=== PATIENT | male | born 1945 | race Caucasian/White ===

== ENCOUNTER 2018-05-23 12:07 | Emergency (ER) | payer OTHER ==
[2018-05-23 13:24] LABS: Absolute Monocytes 0.7 K/uL (0.1-1.3); Absolute Neutrophil 9.8 K/uL (1.8-8.0); Basophils % 1.2 % (0-1.3); Eosinophils % 2.2 % (0-4.4); Hematocrit 42.7 % (39.6-49.0); Lymphocytes % 8.1 % (15.3-44.8); MPV 10.3 fL (7.6-11.3); RBC Red Blood Cell Count 4.45 M/uL (4.33-5.43)
[2018-05-23] MEDS ORDERED: NA CHLORIDE 0.9% 1,000 ML ONE (13:24)
[2018-05-23 13:45] LABS: Albumin 3.5 g/dL (3.4-5.0); Bilirubin Direct 0.1 mg/dL (0-0.2); Bilirubin Total 0.3 mg/dL (0.2-1.0); Potassium 3.6 mmol/L (3.5-5.1); Protein, Total 7.2 g/dL (6.4-8.2)
--- NOTE | 2018-05-23 15:16 | RAD REPORT ---
EXAM DESCRIPTION: CT - Abdomen Pelvis W Contrast - 05/23/2018 3:00 pm CLINICAL HISTORY: Abdominal pain COMPARISON: , CT study August 2013 TECHNIQUE: Biphasic, helical CT imaging of the abdomen and pelvis was performed following 100 ml non -ionic IV contrast. Oral contrast was given. All CT scans are performed using dose optimization technique as appropriate and may include automated exposure control or mA/KV adjustment according to patient size. FINDINGS: No suspicious findings in the lung bases. The liver, spleen, and pancreas show no suspicious findings. An 11 mm cyst in the dome of the right l obe may be fractionally larger from 2014. No gallbladder or biliary tree abnormality. Symmetric renal function is seen with no hydronephrosis or suspicious renal mass. No pyelonephritis o r acute parenchymal process. Urinary bladder is tightly contracted which limits detail. No adrenal ab normalities. No gastric dilatation or wall thickening. The massive wall thickening seen in 2013 in the stomach is no longer present. No acute small bowel finding. The appendix is normal. From cecum to proximal sigmo id colon are no acute findings seen. Mid and distal cecum is tortuous and redundant. There is circumf erential wall thickening and edema. Stranding is present in the adjacent fat. There is edema and thic kening of the rectal wall as well. The tortuous and redundant sigmoid colon extends into a large righ t inguinal hernia. The distal colon findings superior infectious/inflammatory in origin and not secon bria to obstruction. Ischemia from vascular compromise is unlikely. No free air or pneumatosis. No free fluid seen. No abscess or extravasation contrast. No hernia, ma ss or bulky lymphadenopathy. Disc and bony degenerative changes are present. Aortic aneurysm is dilated to 3.1 cm. IMPRESSION: Circumferential wall thickening and edema involving mid sigmoid colon to rectum. This is a nonspecific colitis pattern. Ischemia is unlikely. The involved sigmoid colon is tortuous and redundant extending across the midline with a loop extendi ng into a large right inguinal hernia. The large hernia and involvement of the sigmoid colon is not new. No bowel obstruction, free air or surgically emergent finding. The massive wall thickening of the stomach seen in 2013 is no longer present.
[2018-05-23] MEDS ORDERED: CIPROFLOXACIN 400mg IV 400 MG/200 ML BAG IV ONE (15:55)
[2018-05-23] MEDS ORDERED: METRONIDAZOLE 500mg IVPB 500 MG/100 ML BAG IV ONE (15:55)
--- NOTE | 2018-05-23 16:05 | ER ---
Nurse's Notes [facility] Name: Star Baig Age: 72 yrs Sex: Male : 1945 Arrival Date: 05/23/2018 Time: 12:08 Bed 15 Private MD: out of town, doctor Diagnosis: Diarrhea, unspecified;Colitis;Dehydration Presentation: 05/23 12:25 Presenting complaint: Patient states: Diffuse abdominal pain and diarrhea x 4 days. hb Transition of care: patient was not received from another setting of care. Onset of symptoms was May 20, 2018. Risk Assessment: Do you want to hurt yourself or someone else? Patient reports no desire to harm self or others. Care prior to arrival: None. 12:25 Method Of Arrival: Ambulatory hb 12:25 Acuity: SOCO 3 hb 12:31 Initial Sepsis Screen: Does the patient meet any 2 criteria? No. Patient's initial rb1 sepsis screen is negative. Historical: - Allergies: 12:28 No Known Allergies; hb - PSHx: 12:28 Hernia repair; hb - Immunization history:: Adult Immunizations up to date. - Social history:: Smoking status: Patient uses tobacco products, smokes one pack cigarettes per day. - Ebola Screening: : No symptoms or risks identified at this time. - Family history:: not pertinent. - Hospitalizations: : No recent hospitalization is reported. Screenin:31 Abuse screen: Denies threats or abuse. Nutritional screening: No deficits noted. rb1 Tuberculosis screening: No symptoms or risk factors identified. Fall Risk None identified. Assessment: 12:31 General: Appears in no apparent distress. comfortable, Behavior is calm, cooperative. rb1 Pain: Complains of pain in abdomen diffusely Pain currently is 6 out of 10 on a pain scale. Pain began x 4 days. Neuro: Level of Consciousness is awake, alert, obeys commands, Oriented to person, place, time, situation. Cardiovascular: Capillary refill < 3 seconds is brisk in bilateral fingers. Respiratory: Airway is patent Respiratory effort is even, unlabored, Respiratory pattern is regular, symmetrical. GI: Reports diarrhea, Patient currently denies bloody stool. : No signs and/or symptoms were reported regarding the genitourinary system. Derm: Skin is dry, Skin is normal, Skin temperature is warm. 13:30 Reassessment: Patient appears in no apparent distress at this time. No changes from rb1 previously documented assessment. at bedside. 14:28 Reassessment: Patient appears in no apparent distress at this time. Patient and/or rb1 family updated on plan of care and expected duration. Pain level reassessed. Patient is alert, oriented x 3, equal unlabored respirations, skin warm/dry/pink. 15:28 Reassessment: Patient appears in no apparent distress at this time. No changes from rb1 previously documented assessment. 16:25 Reassessment: Patient appears in no apparent distress at this time. Patient and/or rb1 family updated on plan of care and expected duration. Pain level reassessed. Patient is alert, oriented x 3, equal unlabored respirations, skin warm/dry/pink. Discharge pending due to antibiotics infusing. Patient states feeling better. 17:00 Reassessment: Patient appears in no apparent distress at this time. No changes from rb1 previously documented assessment. Antibiotics still infusing. Vital Signs: 12:27 BP 166 / 105; Pulse 98; Resp 18; Temp 99.7; Pulse Ox 100% on R/A; Pain 6/10; hb 13:30 BP 184 / 95; Pulse 79; Resp 17; Pulse Ox 97% ; rb1 14:30 BP 181 / 92; Pulse 82; Resp 17; Pulse Ox 99% on R/A; Pain 5/10; rb1 15:30 BP 178 / 88; Pulse 77; Resp 19; Pulse Ox 100% on R/A; rb1 16:29 BP 177 / 84; Pulse 78; Resp 18; Pulse Ox 98% on R/A; Pain 4/10; rb1 17:15 BP 166 / 79; Pulse 73; Resp 18; Pulse Ox 100% on R/A; rb1 ED Course: 12:08 Patient arrived in ED. sb2 12:09 out of town, doctor is Private Physician. sb2 12:27 Triage completed. hb 12:28 Arm band placed on. hb 12:31 Patient has correct armband on for positive identification. Placed in gown. Bed in low rb1 position. Call light in reach. Side rails up X 1. Pulse ox on. NIBP on. 12:32 Armen Boone MD is Attending Physician. rn 12:49 Lily Garza, RAF is Primary Nurse. rb1 13:15 Inserted saline lock: 20 gauge in right antecubital area, using aseptic technique. lt1 13:16 Initial lab(s) drawn, by me, sent to lab. Flu and/or RSV swab sent to lab. lt1 14:59 CT completed. Patient tolerated procedure well. Patient moved to CT via wheelchair. vr Patient moved back from CT. 15:01 CT Abd/Pelvis - W/Contrast In Process Unspecified. EDMS 16:02 Bo Cool MD is Referral Physician. rn 17:21 No provider procedures requiring assistance completed. IV discontinued, intact, rb1 bleeding controlled, No redness/swelling at site. Pressure dressing applied. Administered Medications: 13:19 Drug: NS 0.9% 1000 ml Route: IV; Rate: 1000 ml; Site: right antecubital; rb1 14:35 Follow up: IV Status: Completed infusion rb1 15:50 Drug: Cipro 400 mg Volume: 200 ml; Route: IVPB; Infused Over: 60 mins; Site: right rb1 antecubital; 16:56 Follow up: Response: No adverse reaction; IV Status: Completed infusion rb1 16:05 Drug: Flagyl 500 mg Volume: 100 ml; Route: IVPB; Rate: 200 ml/hr; Infused Over: 30 rb1 mins; Site: right antecubital; 17:21 Follow up: Response: No adverse reaction; IV Status: Completed infusion rb1 Outcome: 16:04 Discharge ordered by . rn 17:21 Patient left the ED. rb1 17:21 Discharged to home ambulatory, with significant other. rb1 17:21 Condition: stable 17:21 Discharge instructions given to patient, Instructed on discharge instructions, follow up and referral plans. medication usage, Demonstrated understanding of instructions, follow-up care, medications, Prescriptions given X 2. Signatures: Dispatcher [employer] EDPA Armen Boone MD MD rn Davis, Victoria vr Lily Garza RN RN Freya Encinas RN RN Ginny Silva2 Manju Wylie lt1 Corrections: (The following items were deleted from the chart) 19:46 17:51 Patient left the ED. rb1 rb1
--- NOTE | 2018-05-23 16:05 | EDPHYS ---
Physician Documentation [facility] Name: Star Baig Age: 72 yrs Sex: Male : 1945 Arrival Date: 05/23/2018 Time: 12:08 Bed 15 Private MD: out of town, doctor ED Physician Armen Boone HPI: 05/23 12:41 This 72 yrs old Male presents to ER via Ambulatory with complaints of rn Diarrhea. 12:41 The patient presents to the emergency department with diarrhea, abdominal pain, of the rn abdomen diffusely. 12:41 Onset: The symptoms/episode began/occurred 4 day(s) ago. Possible causes: unknown. The rn symptoms are aggravated by nothing. The symptoms are alleviated by nothing. Severity of symptoms: At their worst the symptoms were moderate in the emergency department the symptoms are unchanged. The patient has not experienced similar symptoms in the past. The patient has not recently seen a physician. Reports a few days of "rampant diarrhea", reports took clindamycin 2 weeks ago, non-bloody diarrhea, + diffuse abd pain. NO vomiting. . Historical: - Allergies: 12:28 No Known Allergies; hb - PSHx: 12:28 Hernia repair; hb - Immunization history:: Adult Immunizations up to date. - Social history:: Smoking status: Patient uses tobacco products, smokes one pack cigarettes per day. - Ebola Screening: : No symptoms or risks identified at this time. - Family history:: not pertinent. - Hospitalizations: : No recent hospitalization is reported. ROS: 12:41 Constitutional: Negative for fever, chills, and weight loss, Eyes: Negative for injury, rn pain, redness, and discharge, Cardiovascular: Negative for chest pain, palpitations, and edema, Respiratory: Negative for shortness of breath, cough, wheezing, and pleuritic chest pain, Abdomen/GI: Negative for nausea, vomiting, and constipation, MS/Extremity: Negative for injury and deformity, Skin: Negative for injury, rash, and discoloration, Neuro: Negative for headache, numbness, tingling, and seizure. Exam: 12:41 Constitutional: This is a well developed, well nourished patient who is awake, alert, rn and in no acute distress. Head/Face: Normocephalic, atraumatic. Eyes: Pupils equal round and reactive to light, extra-ocular motions intact. Lids and lashes normal. Conjunctiva and sclera are non-icteric and not injected. Cornea within normal limits. Periorbital areas with no swelling, redness, or edema. ENT: dry MM Cardiovascular: Regular rate and rhythm, No pulse deficits. Respiratory: Lungs have equal breath sounds bilaterally, clear to auscultation, No increased work of breathing, no retractions or nasal flaring. Abdomen/GI: soft, mild left sided abd tenderness, no rebound MS/ Extremity: Pulses equal, no cyanosis. Neurovascular intact. Full, normal range of motion. Equal circumference. Neuro: Awake and alert, GCS 15, oriented to person, place, time, and situation. Cranial nerves II-XII grossly intact. Motor strength 5/5 in all extremities. Sensory grossly intact. Cerebellar exam normal. Normal gait. Vital Signs: 12:27 BP 166 / 105; Pulse 98; Resp 18; Temp 99.7; Pulse Ox 100% on R/A; Pain 6/10; hb 13:30 BP 184 / 95; Pulse 79; Resp 17; Pulse Ox 97% ; rb1 14:30 BP 181 / 92; Pulse 82; Resp 17; Pulse Ox 99% on R/A; Pain 5/10; rb1 15:30 BP 178 / 88; Pulse 77; Resp 19; Pulse Ox 100% on R/A; rb1 16:29 BP 177 / 84; Pulse 78; Resp 18; Pulse Ox 98% on R/A; Pain 4/10; rb1 17:15 BP 166 / 79; Pulse 73; Resp 18; Pulse Ox 100% on R/A; rb1 MDM: 12:32 Patient medically screened. rn 16:01 Differential diagnosis: diverticulitis, viral gastroenteritis, gastroenteritis, rn colitis. Data reviewed: vital signs, nurses notes, lab test result(s), radiologic studies, and as a result, I will discharge patient. Counseling: I had a detailed discussion with the patient and/or guardian regarding: the historical points, exam findings, and any diagnostic results supporting the discharge/admit diagnosis, lab results, radiology results, the need for outpatient follow up, to return to the emergency department if symptoms worsen or persist or if there are any questions or concerns that arise at home. Response to treatment: the patient's symptoms have markedly improved after treatment, and as a result, I will discharge patient. Special discussion: I discussed with the patient/guardian in detail that at this point there is no indication for admission to the hospital. It is understood, however, that if the symptoms persist or worsen the patient needs to return immediately for re-evaluation. ED course: SPoke with patient, wants to go home, will treat as colitis, urged to f/u with GI for colonoscopy as has never had one performed. Return precautions given and understood.. 05/23 12:39 Order name: Basic Metabolic Panel rn 05/23 12:39 Order name: CBC with Diff rn 05/23 12:39 Order name: Hepatic Function rn 05/23 12:39 Order name: Lipase rn 05/23 12:39 Order name: CDIFF rn 05/23 12:39 Order name: Occult Blood rn 05/23 12:39 Order name: CT Abd/Pelvis - W/Contrast; Complete Time: 15:18 rn 05/23 12:39 Order name: Stool Culture rn 05/23 12:39 Order name: Flu; Complete Time: 14:19 rn 05/23 12:40 Order name: Basic Metabolic Panel; Complete Time: 14:19 EDPA 05/23 12:41 Order name: CBC with Automated Diff; Complete Time: 14:19 EDPA 05/23 12:41 Order name: Liver (Hepatic) Function; Complete Time: 14:19 EDPA 05/23 12:41 Order name: Lipase; Complete Time: 14:19 EDPA 05/23 12:41 Order name: Clostridium difficile DNA EDPA 05/23 12:39 Order name: IV Saline Lock; Complete Time: 13:19 rn 05/23 12:39 Order name: Labs collected and sent; Complete Time: 13:19 rn Administered Medications: 13:19 Drug: NS 0.9% 1000 ml Route: IV; Rate: 1000 ml; Site: right antecubital; rb1 14:35 Follow up: IV Status: Completed infusion rb1 15:50 Drug: Cipro 400 mg Volume: 200 ml; Route: IVPB; Infused Over: 60 mins; Site: right rb1 antecubital; 16:56 Follow up: Response: No adverse reaction; IV Status: Completed infusion rb1 16:05 Drug: Flagyl 500 mg Volume: 100 ml; Route: IVPB; Rate: 200 ml/hr; Infused Over: 30 rb1 mins; Site: right antecubital; 17:21 Follow up: Response: No adverse reaction; IV Status: Completed infusion rb1 Disposition: 05/23/18 16:04 Discharged to Home. Impression: Diarrhea, unspecified, Colitis, Dehydration. - Condition is Stable. - Discharge Instructions: Dehydration, Adult, Diarrhea, Adult, Colitis. - Prescriptions for Cipro 500 mg Oral Tablet - take 1 tablet by ORAL route every 12 hours for 10 days; 20 tablet. Flagyl 500 mg Oral Tablet - take 1 tablet by ORAL route every 8 hours for 10 days; 30 tablet. - Medication Reconciliation Form, Thank You Letter, Antibiotic Education, Prescription Opioid Use form. - Follow up: Bo Cool MD; When: As needed; Reason: Recheck today's complaints, Re-evaluation by your physician. - Problem is new. - Symptoms have improved. Signatures: Dispatcher [employer] EDMS Armen Boone MD MD rn Lily Garza RN RN rb1 Freya Moise RN RN Corrections: (The following items were deleted from the chart) 16:04 16:04 05/23/2018 16:04 Discharged to Home. Impression: Diarrhea, unspecified. Condition rn is Stable. Forms are Medication Reconciliation Form, Thank You Letter, Antibiotic Education, Prescription Opioid Use. Follow up: Bo Cool; When: As needed; Reason: Recheck today's complaints, Re-evaluation by your physician. Problem is new. Symptoms have improved. rn 17:51 16:04 05/23/2018 16:04 Discharged to Home. Impression: Diarrhea, unspecified; Colitis; rb1 Dehydration. Condition is Stable. Forms are Medication Reconciliation Form, Thank You Letter, Antibiotic Education, Prescription Opioid Use. Follow up: Bo Cool; When: As needed; Reason: Recheck today's complaints, Re-evaluation by your physician. Problem is new. Symptoms have improved. rn
[2018-05-23 18:24] VITALS: TEMP 99.7
[2018-05-23 18:26] VITALS: BP 184/95; O2SAT 97
== END 2018-05-23 17:51 | disposition home or self-care (01) ==
LOC: ER 12:07
DX: K52.9 Noninfective gastroenteritis and colitis, unspecified (principal); E86.0 Dehydration; F17.210 Nicotine dependence, cigarettes, uncomplicated
CPT/HCPCS: 36415; 74177; 80048; 80076; 83690; 85025; 87045; 87046; 87493; 87804 ×2; 96361; 96365; 96368; 99284; J0744; J7030; Q9967

== ENCOUNTER 2019-03-11 20:25 | Emergency (ER) | payer OTHER ==
[2019-03-11] MEDS ORDERED: NA CHLORIDE 0.9% 1,000 ML ONE (21:22)
[2019-03-11] MEDS ORDERED: THIAMINE 200 MG/2 ML INJ ONE (21:22)
[2019-03-11 21:31] LABS: Protime INR 0.95
[2019-03-11 22:14] LABS: ALT/SGPT 20 U/L (12-78); AST/SGOT 19 U/L (15-37); Albumin 3.2 g/dL (3.4-5.0); Alkaline Phosphatase 60 U/L (45-117); BUN Blood Urea Nitrogen 18 mg/dL (7-18); Bicarbonate 24 mmol/L (21-32); Bilirubin Direct < 0.1 mg/dL (0-0.2); Bilirubin Total 0.2 mg/dL (0.2-1.0); Glucose Level 95 mg/dL (74-106); Lipase 70 U/L (73-393); Magnesium 2.1 mg/dL (1.8-2.4); NT PRO-BNP 406 pg/mL (<125); Potassium 3.7 mmol/L (3.5-5.1); Protein, Total 6.7 g/dL (6.4-8.2); Sodium Level 135 mmol/L (136-145); Troponin (Emerg Dept Use Only) < 0.02 ng/mL (0.0-0.045)
[2019-03-11 23:46] LABS: Barbiturates NEGATIVE (NEGATIVE); Benzodiazepines NEGATIVE (NEGATIVE); Cocaine NEGATIVE (NEGATIVE); METHAMPHETAM NEGATIVE (NEGATIVE); Methadone NEGATIVE (NEGATIVE); Opiates NEGATIVE (NEGATIVE); Phencyclidine NEGATIVE (NEGATIVE); THC Cannibis POSITIVE (NEGATIVE)
--- NOTE | 2019-03-11 23:57 | ER ---
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 Transition of care: patient was not received from another setting of care. Onset of symptoms was March 11, 2019. Risk Assessment: Do you want to hurt yourself or someone else? Patient reports no desire to harm self or others. Initial Sepsis Screen: Does the patient meet any 2 criteria? No. Patient's initial sepsis screen is negative. Does the patient have a suspected source of infection? No. Patient's initial sepsis screen is negative. Care prior to arrival: None. 20:30 Method Of Arrival: EMS: [facility] bb 20:30 Mechanism of Injury: Fall dock unto boat approx 3 feet. Trauma event details: Injury bb occurred in the [facility], Injury occurred: in a recreational area. Injury occurred: March 11, 2019. 20:34 Acuity: SOCO 2 lp1 Trauma Activation: Alert Physician: ED Physician; Name: Dr. Meeks; Notified At: 20:17; Arrived At: 20:17 Physician: General Surgeon; Name: N/A; Notified At: 20:17; Arrived At: Physician: Radiology; Name: Richie Suarez; Notified At: 20:17; Arrived At: 20:17 Physician: Respiratory; Name: Jaime; Notified At: 20:17; Arrived At: 20:17 Physician: Lab; Name: N/A; Notified At: 20:17; Arrived At: Historical: - Allergies: 20:41 No Known Allergies; bb - Home Meds: 20:41 inhaler [Active]; bb - PMHx: 20:41 COPD; bb - PSHx: 20:41 Hernia repair; bb - Immunization history:: Adult Immunizations unknown. - Social history:: Smoking status: Patient uses tobacco products, smokes two packs cigarettes per day. Patient uses alcohol, on a daily basis. Patient/guardian denies using IV drugs. - Immunization history: Last tetanus immunization: unknown. - Family history:: not pertinent. - Ebola Screening: : No symptoms or risks identified at this time. Screenin:18 Abuse screen: Denies threats or abuse. Denies injuries from another. Nutritional lp1 screening: No deficits noted. Tuberculosis screening: No symptoms or risk factors identified. Fall Risk Total Salgado Fall Scale indicates High Risk Score (45 or more points). Fall prevention measures have been instituted. Side Rails Up X 2 Family Present and informed to notify staff if the need to leave the bedside As available patient and family educated on Fall Prevention Program and Strategies. Primary Survey: 20:30 NO uncontrolled hemorrhage observed. A: The patient is alert. Airway: patent, No lp1 supplemental oxygen in use on arrival. Breathing/Chest: Respiratory pattern: regular, Respiratory effort: spontaneous, unlabored, Breath sounds: clear, bilaterally. Chest inspection: symmetrical rise and fall of the chest. Circulation: Skin color: pink, Skin temperature: warm, dry. Disability Alert. Exposure/Environment: All clothing and personal items were removed. Obvious injury(ies) are noted at this time: Laceration to back of head. 21:30 Reassessment Airway Airway Patent Breathing/Chest Respiratory pattern Regular lp1 Respiratory effort Spontaneous Unlabored. Secondary Survey: 21:00 HEENT: Head Other Laceration to back of head, not actively bleeding. Gastrointestinal: lp1 Abdomen is soft. : No deficits noted. Musculoskeletal: Range of motion: intact in all extremities. Assessment: 20:30 Reassessment: C-collar placed on patient. General: Appears in no apparent distress. lp1 Behavior is calm, cooperative, Smells of alcohol. Pain: Denies pain. Neuro: Level of Consciousness is awake, alert, obeys commands, Oriented to person, place, situation. Cardiovascular: Patient's skin is warm and dry. Respiratory: Airway is patent Respiratory effort is even, unlabored, Breath sounds are clear bilaterally. GI: Abdomen is non-distended. : No signs and/or symptoms were reported regarding the genitourinary system. EENT: No signs and/or symptoms were reported regarding the EENT system. Derm: Wound noted Other: Laceration to back of head. Musculoskeletal: Circulation, motion, and sensation intact. Range of motion: intact in all extremities. 21:40 Reassessment: Patient appears in no apparent distress at this time. Patient and/or lp1 family updated on plan of care and expected duration. Pain level reassessed. Patient resting, eyes closed respirations unlabored. 23:18 Reassessment: Patient appears in no apparent distress at this time. Patient and/or lp1 family updated on plan of care and expected duration. Pain level reassessed. Patient resting, eyes closed, respirations unlabored; C-collar removed at this time per Provider. 23:30 Reassessment: Patient changed out of wet jeans into new gown, more blankets given for lp1 comfort. 03/12 00:37 Reassessment: Patient appears in no apparent distress at this time. Reassessment: lp1 Patient assisted to wheelchair for discharge home with . Neuro: Level of Consciousness is awake, alert, obeys commands, Oriented to person, place, situation. Vital Signs: 03/11 20:32 BP 168 / 93; Pulse 82; Resp 19; Temp 97.6; Pulse Ox 95% on R/A; Weight 95.25 kg (R); lp1 Height 5 ft. 7 in. (170.18 cm); Pain 0/10; 21:00 BP 174 / 89; Pulse 83; Resp 20; Pulse Ox 94% on 2 lpm NC; lp1 22:30 BP 120 / 76; Pulse 86; Resp 17; Pulse Ox 96% on 2 lpm NC; lp1 23:30 BP 150 / 67; Pulse 82; Resp 20; Pulse Ox 97% on R/A; lp1 03/12 00:15 BP 180 / 83; Pulse 90; Resp 20; Pulse Ox 93% on R/A; lp1 03/11 20:32 Body Mass Index 32.89 (95.25 kg, 170.18 cm) lp1 Bautista Coma Score: 03/11 20:32 Eye Response: spontaneous(4). Verbal Response: oriented(5). Motor Response: obeys lp1 commands(6). Total: 15. Trauma Score (Adult): 20:32 Eye Response: spontaneous(1); Verbal Response: oriented(1); Motor Response: obeys lp1 commands(2); Systolic BP: > 89 mm Hg(4); Respiratory Rate: 10 to 29 per min(4); Bautista Score: 15; Trauma Score: 12 ED Course: 20:28 Patient arrived in ED. ds1 20:29 Yfn Meeks MD is Attending Physician. rosy 20:29 Camryn Rouse RN is Primary Nurse. lp1 20:32 Maintain EMS IV. Dressing intact. Good blood return noted. Site clean \T\ dry. Gauge \T\ lp 1 site: 18g to L AC. IV. 20:32 Patient maintains SpO2 saturation greater than 95% on room air. lp1 20:32 Patient has correct armband on for positive identification. Placed in gown. Bed in low lp1 position. Side rails up X2. marine geologist on. Pulse ox on. NIBP on. 20:34 Triage completed. lp1 20:34 Arm band placed on. lp1 20:35 Thermoregulation: warm blanket given to patient. lp1 20:39 Radiology exam delayed due to lab results not completed at this time. (BUN/Creatinine). vm2 21:46 Radiology exam delayed due to lab results not completed at this time. (BUN/Creatinine). vm2 22:30 Wound care: to laceration located on left parietal area was cleaned with Betadine, lp1 irrigated with normal saline. 23:57 Trevin Valdes MD is Referral Physician. [facility] 03/12 00:06 Assist provider with laceration repair on left parietal area that was 2.5 cm. or less lp1 using ileana. Set up tray. Performed by Yfn Meeks MD Patient tolerated well. 00:35 IV discontinued, No redness/swelling at site. Pressure dressing applied. lp1 04:30 CT Traumagram (Head C Spine CAP W Con) In Process Unspecified. EDMS Administered Medications: 03/11 21:38 Drug: NS 0.9% 1000 ml Route: IV; Rate: 1 bolus; Site: left antecubital; lp1 03/12 00:00 Follow up: IV Status: Completed infusion; IV Intake: 1000ml lp1 03/11 21:38 Drug: Thiamine 100 mg Route: IV; Rate: per protocol; Site: left antecubital; lp1 22:00 Follow up: IV Status: Completed infusion lp1 03/12 00:00 Not Given (Patient for discharge ): NS 0.9% 1000 ml IV at 125 ml/hr continuous lp1 Intake: 00:00 IV: 1000ml; Total: 1000ml. lp1 Output: 03/11 23:00 Urine: 350ml (Voided); Total: 350ml. lp1 Outcome: 23:56 Discharge ordered by MD. gallegos 03/12 00:37 Discharged to home via wheelchair, with significant other. 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 Demonstrated understanding of instructions, follow-up care. 00:38 Patient's length of stay in the Emergency Department was greater than 2 hours. waiting lp1 for imaging results Patient's length of stay extended due to 00:38 Patient left the ED. lp1 Signatures: Dispatcher [employer] EDMS Yfn Meeks MD MD cha Sanford, Demi ds1 Daphne Gordon, RN RN Camryn Krishnan RN RN 1 Marilu Beck [facility] Corrections: (The following items were deleted from the chart) 03/11 20:34 20:32 BP 168 / 93; Pulse 82bpm; Resp 19bpm; Pulse Ox 95% RA; lp1 lp1 20:34 20:32 BP 168 / 93; Pulse 82bpm; Resp 19bpm; Pulse Ox 95% RA; Temp 97.6F; 95.25 kg; lp1 Height 5 ft. 7 in.; BMI: 32.8; Pain 0/10; lp1
--- NOTE | 2019-03-11 23:58 | EDPHYS ---
Physician Documentation [facility] Name: Star Baig Age: 73 yrs Sex: Male : 1945 Arrival Date: 03/11/2019 Time: 20:28 Bed 3 Private MD: ED Physician Yfn Meeks HPI: 03/11 20:33 This 73 yrs old Male presents to ER via Unassigned with complaints of Fall rosy Injury. 20:33 Details of fall: The patient fell from a height, down approximately 3 stairs. Onset: rosy The symptoms/episode began/occurred just prior to arrival. Associated injuries: The patient sustained injury to the head. Severity of symptoms: At their worst the symptoms were mild, in the emergency department the symptoms are unchanged. The patient has not experienced similar symptoms in the past. Historical: - Allergies: 20:41 No Known Allergies; bb - Home Meds: 20:41 inhaler [Active]; bb - PMHx: 20:41 COPD; bb - PSHx: 20:41 Hernia repair; bb - Immunization history:: Adult Immunizations unknown. - Social history:: Smoking status: Patient uses tobacco products, smokes two packs cigarettes per day. Patient uses alcohol, on a daily basis. Patient/guardian denies using IV drugs. - Immunization history: Last tetanus immunization: unknown. - Family history:: not pertinent. - Ebola Screening: : No symptoms or risks identified at this time. ROS: 20:33 Constitutional: Negative for fever, chills, and weight loss, Eyes: Negative for injury, rosy pain, redness, and discharge, ENT: Negative for injury, pain, and discharge, Neck: Negative for injury, pain, and swelling, Cardiovascular: Negative for chest pain, palpitations, and edema, Respiratory: Negative for shortness of breath, cough, wheezing, and pleuritic chest pain, Abdomen/GI: Negative for abdominal pain, nausea, vomiting, diarrhea, and constipation, Back: Negative for injury and pain, : Negative for injury, bleeding, discharge, and swelling, MS/Extremity: Negative for injury and deformity, Skin: Negative for injury, rash, and discoloration, Neuro: Negative for headache, weakness, numbness, tingling, and seizure, Psych: Negative for depression, anxiety, suicide ideation, homicidal ideation, and hallucinations, Allergy/Immunology: Negative for hives, rash, and allergies, Endocrine: Negative for neck swelling, polydipsia, polyuria, polyphagia, and marked weight changes, Hematologic/Lymphatic: Negative for swollen nodes, abnormal bleeding, and unusual bruising. Exam: 20:33 Constitutional: This is a well developed, well nourished patient who is awake, alert, rosy and in no acute distress. Head/Face: Normocephalic, atraumatic. Eyes: Pupils equal round and reactive to light, extra-ocular motions intact. Lids and lashes normal. Conjunctiva and sclera are non-icteric and not injected. Cornea within normal limits. Periorbital areas with no swelling, redness, or edema. ENT: Nares patent. No nasal discharge, no septal abnormalities noted. Tympanic membranes are normal and external auditory canals are clear. Oropharynx with no redness, swelling, or masses, exudates, or evidence of obstruction, uvula midline. Mucous membranes moist. Neck: Trachea midline, no thyromegaly or masses palpated, and no cervical lymphadenopathy. Supple, full range of motion without nuchal rigidity, or vertebral point tenderness. No Meningismus. Chest/axilla: Normal chest wall appearance and motion. Nontender with no deformity. No lesions are appreciated. Cardiovascular: Regular rate and rhythm with a normal S1 and S2. No gallops, murmurs, or rubs. Normal PMI, no JVD. No pulse deficits. Respiratory: Lungs have equal breath sounds bilaterally, clear to auscultation and percussion. No rales, rhonchi or wheezes noted. No increased work of breathing, no retractions or nasal flaring. Abdomen/GI: Soft, non-tender, with normal bowel sounds. No distension or tympany. No guarding or rebound. No evidence of tenderness throughout. Back: No spinal tenderness. No costovertebral tenderness. Full range of motion. Male : Normal genitalia with no discharge or lesions. MS/ Extremity: Pulses equal, no cyanosis. Neurovascular intact. Full, normal range of motion. Neuro: Awake and alert, GCS 15, oriented to person, place, time, and situation. Cranial nerves II-XII grossly intact. Motor strength 5/5 in all extremities. Sensory grossly intact. Cerebellar exam normal. Normal gait. Psych: Awake, alert, with orientation to person, place and time. Behavior, mood, and affect are within normal limits. 20:33 Skin: injury, laceration(s), the wound is approximately 2.5 cm(s), with a depth of .25 cm(s), of the scalp. Vital Signs: 20:32 BP 168 / 93; Pulse 82; Resp 19; Temp 97.6; Pulse Ox 95% on R/A; Weight 95.25 kg (R); lp1 Height 5 ft. 7 in. (170.18 cm); Pain 0/10; 21:00 BP 174 / 89; Pulse 83; Resp 20; Pulse Ox 94% on 2 lpm NC; lp1 22:30 BP 120 / 76; Pulse 86; Resp 17; Pulse Ox 96% on 2 lpm NC; lp1 23:30 BP 150 / 67; Pulse 82; Resp 20; Pulse Ox 97% on R/A; lp1 03/12 00:15 BP 180 / 83; Pulse 90; Resp 20; Pulse Ox 93% on R/A; lp1 03/11 20:32 Body Mass Index 32.89 (95.25 kg, 170.18 cm) lp1 [place] Coma Score: 03/11 20:32 Eye Response: spontaneous(4). Verbal Response: oriented(5). Motor Response: obeys lp1 commands(6). Total: 15. Trauma Score (Adult): 20:32 Eye Response: spontaneous(1); Verbal Response: oriented(1); Motor Response: obeys lp1 commands(2); Systolic BP: > 89 mm Hg(4); Respiratory Rate: 10 to 29 per min(4); Bautista Score: 15; Trauma Score: 12 Laceration: 23:58 Wound Repair of 2.5cm ( 1.0in ) subcutaneous laceration to scalp. Irregularly shaped.. rosy Distal neuro/vascular/tendon intact. Anesthesia: none with 0 mls of none. Wound prep: Simple cleansing by me. Skin closed with 2 2 bishnu Bishnu using staple gun. Dressed with Neosporin. Patient tolerated well. MDM: 20:29 Patient medically screened. [facility] 20:37 Data reviewed: vital signs, nurses notes, lab test result(s), EKG, radiologic studies, [facility] CT scan. 03/11 20:32 Order name: Basic Metabolic Panel [facility] 03/11 20:32 Order name: CBC with Diff [facility] 03/11 20:32 Order name: LFT's [facility] 03/11 20:32 Order name: Magnesium [facility] 03/11 20:32 Order name: NT PRO-BNP [facility] 03/11 20:32 Order name: PT-INR [facility] 03/11 20:32 Order name: Troponin (emerg Dept Use Only) [facility] 03/11 20:32 Order name: Lipase [facility] 03/11 20:32 Order name: Acetaminophen [facility] 03/11 20:33 Order name: ETOH Level [facility] 03/11 20:33 Order name: Ptt, Activated [facility] 03/11 20:33 Order name: Salicylate [facility] 03/11 20:33 Order name: Urine Drug Screen [facility] 03/11 20:33 Order name: Type And Screen [facility] 03/11 21:36 Order name: Protime (+INR); Complete Time: 22:24 EDMT 03/11 21:37 Order name: Salicylates Level; Complete Time: 22:24 EDMS 03/11 21:49 Order name: PTT, Activated Partial Thromb; Complete Time: 22:24 EDMT 03/11 21:55 Order name: Alcohol Serum/Plasma; Complete Time: 22:24 EDMS 03/11 22:16 Order name: Basic Metabolic Panel; Complete Time: 22:24 EDMS 03/11 22:16 Order name: Liver (Hepatic) Function; Complete Time: 22:24 EDMS 03/11 22:16 Order name: Troponin (Emerg Dept Use Only); Complete Time: 22:24 EDMT 03/11 22:16 Order name: NT PRO-BNP; Complete Time: 22:24 EDMS 03/11 22:16 Order name: Acetaminophen Level; Complete Time: 22:24 EDMS 03/11 22:16 Order name: Magnesium; Complete Time: 22:24 EDMS 03/11 22:16 Order name: Lipase; Complete Time: 22:24 EDMS 03/11 22:22 Order name: Type and Screen; Complete Time: 22:24 EDMS 03/11 22:34 Order name: CBC with Diff 03/11 23:19 Order name: Urine Dipstick--Ancillary (enter results) ar5 03/11 23:46 Order name: Urine Drug Screen; Complete Time: 23:48 EDMS 03/12 00:12 Order name: CBC with Automated Diff [facility] 03/11 20:32 Order name: EKG; Complete Time: 20:34 [facility] 03/11 20:32 Order name: Cardiac monitoring; Complete Time: 21:38 [facility] 03/11 20:32 Order name: EKG - Nurse/Tech; Complete Time: 21:38 [facility] 03/11 20:32 Order name: IV Saline Lock; Complete Time: 21:38 [facility] 03/11 20:32 Order name: Labs collected and sent; Complete Time: 21:38 [facility] 03/11 20:32 Order name: O2 Per Protocol; Complete Time: 21:38 [facility] 03/11 20:32 Order name: O2 Sat Monitoring; Complete Time: 21:38 [facility] 03/11 20:33 Order name: Urine Dipstick-Ancillary (obtain specimen); Complete Time: 23:17 [facility] 03/11 20:33 Order name: CT Traumagram (Head C Spine CAP W Con) [facility] Administered Medications: 21:38 Drug: NS 0.9% 1000 ml Route: IV; Rate: 1 bolus; Site: left antecubital; lp1 03/12 00:00 Follow up: IV Status: Completed infusion; IV Intake: 1000ml lp1 03/11 21:38 Drug: Thiamine 100 mg Route: IV; Rate: per protocol; Site: left antecubital; lp1 22:00 Follow up: IV Status: Completed infusion lp1 03/12 00:00 Not Given (Patient for discharge ): NS 0.9% 1000 ml IV at 125 ml/hr continuous lp1 Disposition: 03/11/19 23:56 Discharged to Home. Impression: Fall due to bumping against object, Laceration without foreign body of other part of head, Alcohol abuse with intoxication, Tobacco abuse counseling - lung mass 1.5x1.5cm right upper lung mass, Obesity, unspecified, Aneurysm of aorta in diseases classified elsewhere. - Condition is Stable. - Discharge Instructions: Abdominal Aortic Aneurysm, Alcohol Intoxication, Head Injury, Adult, Obesity, Adult, Steps to Quit Smoking, Smoking Hazards, Alcohol Intoxication, Ftyw-tx-Tyzc, Alcohol Abuse and Nutrition, Facial Laceration, Qyme-sj-Hloy, Steps to Quit Smoking, Dmty-kq-Ajac, Head Injury, Adult, Owqt-jr-Oteb. - Medication Reconciliation Form, Thank You Letter, Antibiotic Education, Prescription Opioid Use form. - Follow up: Private Physician; When: 2 - 3 days; Reason: Recheck today's complaints, Continuance of care, Re-evaluation by your physician. Follow up: Trevin Valdes MD; When: 2 - 3 days; Reason: Recheck today's complaints, Re-evaluation by your physician. - Problem is new. - Symptoms have improved. Signatures: Dispatcher [employer] EDMS Yfn Meeks MD MD cha Ballard, Brenda, RN RN bb Camryn Rouse RN RN lp1 Corrections: (The following items were deleted from the chart) 03/11 23:57 23:56 03/11/2019 23:56 Discharged to Home. Impression: Fall due to bumping against rosy object; Laceration without foreign body of other part of head; Alcohol abuse with intoxication; Tobacco abuse counseling - lung mass 1.5x1.5cm right upper lung mass; Obesity, unspecified. Condition is Stable. Discharge Instructions: Alcohol Intoxication, Head Injury, Adult, Obesity, Adult, Steps to Quit Smoking, Smoking Hazards, Alcohol Intoxication, Mehr-wz-Pull, Alcohol Abuse and Nutrition, Facial Laceration, Ofds-vo-Ioti, Steps to Quit Smoking, Hgln-cl-Lsbl, Head Injury, Adult, Afgi-uz-Hnys. Forms are Medication Reconciliation Form, Thank You Letter, Antibiotic Education, Prescription Opioid Use. Follow up: Private Physician; When: 2 - 3 days; Reason: Recheck today's complaints, Continuance of care, Re-evaluation by your physician. Problem is new. Symptoms have improved. [facility] 23:58 23:57 03/11/2019 23:56 Discharged to Home. Impression: Fall due to bumping against rosy object; Laceration without foreign body of other part of head; Alcohol abuse with intoxication; Tobacco abuse counseling - lung mass 1.5x1.5cm right upper lung mass; Obesity, unspecified. Condition is Stable. Discharge Instructions: Alcohol Intoxication, Head Injury, Adult, Obesity, Adult, Steps to Quit Smoking, Smoking Hazards, Alcohol Intoxication, Jzqz-wd-Ekrf, Alcohol Abuse and Nutrition, Facial Laceration, Alsy-lq-Vuhy, Steps to Quit Smoking, Xzyf-eq-Aayv, Head Injury, Adult, Xzmh-oh-Knxk. Forms are Medication Reconciliation Form, Thank You Letter, Antibiotic Education, Prescription Opioid Use. Follow up: Private Physician; When: 2 - 3 days; Reason: Recheck today's complaints, Continuance of care, Re-evaluation by your physician. Follow up: Trevin Valdes; When: 2 - 3 days; Reason: Recheck today's complaints, Re-evaluation by your physician. Problem is new. Symptoms have improved. rosy 03/12 00:38 03/11 23:58 03/11/2019 23:56 Discharged to Home. Impression: Fall due to bumping lp1 against object; Laceration without foreign body of other part of head; Alcohol abuse with intoxication; Tobacco abuse counseling - lung mass 1.5x1.5cm right upper lung mass; Obesity, unspecified; Aneurysm of aorta in diseases classified elsewhere. Condition is Stable. Discharge Instructions: Alcohol Intoxication, Head Injury, Adult, Obesity, Adult, Steps to Quit Smoking, Smoking Hazards, Alcohol Intoxication, Lwck-ew-Hyef, Alcohol Abuse and Nutrition, Facial Laceration, Jkda-pa-Wvhg, Steps to Quit Smoking, Rjgb-it-Vwki, Head Injury, Adult, Pwwy-hn-Vyod, Abdominal Aortic Aneurysm. Forms are Medication Reconciliation Form, Thank You Letter, Antibiotic Education, Prescription Opioid Use. Follow up: Private Physician; When: 2 - 3 days; Reason: Recheck today's complaints, Continuance of care, Re-evaluation by your physician. Follow up: Trevin Valdes; When: 2 - 3 days; Reason: Recheck today's complaints, Re-evaluation by your physician. Problem is new. Symptoms have improved. rosy
[2019-03-12 00:05] LABS: Absolute Lymphocytes (CBC) 0.6 K/uL (0.7-4.9); Basophils % 1.4 % (0-1.3); Hematocrit 36.8 % (39.6-49.0); Lymphocytes % 8.1 % (15.3-44.8); MPV 10.3 fL (7.6-11.3); RBC Red Blood Cell Count 3.81 M/uL (4.33-5.43)
[2019-03-12 02:41] LABS: Urine Blood TRACE (NEG); Urine Glucose NEGATIVE (NEG); Urine Protein 1+ (NEG)
[2019-03-12 02:58] LABS: Blood Morphology Comment NOT SEEN (NOT SEEN); Platelet Estimate ADEQ
[2019-03-12 06:35] VITALS: TEMP 97.6
[2019-03-12 06:41] VITALS: BP 180/83; O2SAT 93
--- NOTE | 2019-03-12 08:22 | EKG ---
Test Date: 2019-03-11 Test Time: 21:30:30 Supervisor Sewer System: JUNE MEASUREMENT RESULTS: Intervals: Rate: 85 NC: 216 QRSD: 140 QT: 422 QTc: 502 [place]: P: 66 NC: 216 QRS: -55 T: 66 INTERPRETIVE STATEMENTS: Sinus rhythm with 1st degree AV block Left axis deviation Right bundle branch block Abnormal ECG Compared to ECG 06/12/2013 21:10:05 First degree AV block now present Left-axis deviation now present Right bundle-branch block now present Incomplete right bundle-branch block no longer present Electronically Signed On 03-12-19 08:21:28 PUBLIC RELATIONS ASSOCIATE by Jesus Eagle
--- NOTE | 2019-03-15 14:34 | RAD REPORT ---
EXAM DESCRIPTION: CT - Head C Spine Cap W Con - 03/12/2019 4:49 am ADDENDUM #1 CLINICAL HISTORY: Pain. Trauma. TECHNIQUE: CT scan of the chest, abdomen and pelvis was performed with intravenous contrast. 5 mm ax ial images were obtained along with coronal and sagittal reformatted images. DOSE OPTIMIZATION: This facility uses dose optimization techniques as appropriate to perform exams, including at least one of the following techniques: 1. Automated exposure control. 2. Adjustment of the mA and/or kV according to patient size (this includes techniques or standardized protocols for targeted exams where dose is matched to the indication/reason for exam, i.e. extremiti es or head). 3. Use of iterative reconstructive technique. INTRAVENOUS CONTRAST: Not documented. COMPARISON: None. FINDINGS: Lung Martinez: There is a lobulated mass in the right upper lobe measuring 1.5 x 1.5 cm. There is moderately severe emphysematous lung disease in the apices bilaterally. There is no pneumothorax. Mediastinal Structures: There is no evidence of aortic aneurysm or dissection. There is mild atherosclerotic disease about the thoracic aorta. There is no significant pericardial effusion. There is no adenopathy. Pleural Space: Normal. Axillae: Normal. Chest Wall: Normal. Liver: There is a cyst in the right hepatic lobe measuring 1.4 x 1.4 cm. Spleen: Normal. Pancreas: Normal. Gallbladder: Normal. Adrenal Glands: Normal. Kidneys: Normal. Retroperitoneal Structures: There is mild fusiform aneurysmal dilatation of the mid abdominal aorta measuring 3.1 x 2.9 cm rbady l AP and transverse dimensions. Bowel Survey: There is increased of the mid sigmoid colon within a large right inguinal hernia. There is no evidence of bowel compromise. The appendix is unremarkable. The distal ileum is unremarkable. Prostate Gland: Normal in size. Urinary Bladder: Normal. Peritoneal Cavity: Normal. Mesenteric Structures: Normal. Abdominal Wall: No hernia. Bony Structures: No suspicious lesions. No fractures are identified. IMPRESSION: 1. No acute posttraumatic changes. 2. Lobulated pulmonary mass in the right upper lobe. Etiology uncertain. A follow-up chest CT in 3 months, May 2019, recommended to assess for stability. 3. 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 Large right inguinal hernia which contains a portion of the sigmoid colon. 5. Emphysematous lung disease. Electronically signed by: Cody Adkins MD 03/11/2019 11:31 PM [facility] [employer] End of Addendum EXAM DESCRIPTION: Head C Spine Cap W Con CLINICAL HISTORY: 73 years Male, PAIN COMPARISON: None. TECHNIQUE: 1. Head CT: 5 mm noncontrast axial images were obtained along with 3 mm coronal and sagit arlene reformatted images. 2. Cervical spine CT: 2 mm noncontrast axial images were obtained along with 2 mm coronal and sagitta l reformatted images. This exam was performed according to our departmental dose-optimization program, which includes autom ated exposure control, adjustment of the mA and/or kV according to patient size and/or use of iterati ve reconstruction technique. FINDINGS: HEAD CT: No acute abnormal extracerebral fluid collections are demonstrated. There is mild prominence of the cortical sulci and ventricles and cisterns consistent with global par enchymal volume loss. There is evidence of a septum pellucidum et vergae. There is moderately severe chronic bilateral periventricular microangiopathic white matter changes. There is atherosclerosis of the internal carotid arteries bilaterally. There are no areas of altered attenuation identified to suggest acute hemorrhage, infarction, or mass lesion. The paranasal sinuses and the mastoid air cells are clear. CT CERVICAL SPINE: There is no evidence of fracture or subluxation. There is mild diffuse spondylosis throughout the cervical spine with endplate lipping and syndesmophy te formation demonstrated. The facet joints demonstrate severe facet arthropathy on the left at C2-C3, moderate severe facet art hropathy on the right at C2-C3, mild facet arthropathy bilaterally at C3 or C4, and mild facet arthro henry on the left at C4-C5. There is atherosclerosis about the carotid arteries bilaterally. IMPRESSION: 1. Head CT: No acute intracranial abnormalities. 2. CT cervical spine: No fracture or subluxation. Mild diffuse spondylosis. Facet arthropathy as desc ribed above. Electronically signed by: Cody Adkins MD 03/11/2019 10:51 PM [facility] Due to temporary technical issues with the PACS/Fluency reporting system, reports are being signed by the in house radiologist as a courtesy to ensure prompt reporting. The interpreting radiologist is f ully responsible for the content of the report.
== END 2019-03-12 00:38 | disposition home or self-care (01) ==
LOC: ER 20:25
PROC: 0JQ00ZZ Repair Scalp Subcutaneous Tissue and Fascia, Open Approach (ICD-10-PCS; principal; 2019-03-12)
DX: S01.01XA Laceration without foreign body of scalp, initial encounter (principal); F10.129 Alcohol abuse with intoxication, unspecified; R91.8 Other nonspecific abnormal finding of lung field; E66.9 Obesity, unspecified; I71.9 Aortic aneurysm of unspecified site, without rupture; Z71.6 Tobacco abuse counseling; J44.9 Chronic obstructive pulmonary disease, unspecified; W10.9XXA Fall (on) (from) unspecified stairs and steps, initial encounter; Y93.9 Activity, unspecified; Y92.9 Unspecified place or not applicable
CPT/HCPCS: 96365; 96361; 93005; 85025; 80048; 36415; 80320; 86900; 83735; 86850; 80329 ×2; 85610; 86901; 80076; 80307 ×8; 85730; 81003; 84484; 83690; 83880; 70450; 72125; 71260; 74177; 99285; 12001; Q9967; J3411; J7030

== ENCOUNTER 2023-12-07 08:04 | Observation (INO) | payer OTHER ==
[2023-12-07] MEDS: NA CHLORIDE 0.9% 1,000 ML ONE (08:46)
[2023-12-07 08:50] LABS: MPV 10.2 fL (7.6-11.3); Platelets 163 thou/uL (152-406)
[2023-12-07 08:57] LABS: PT Prothrombin Time 10.7 SECONDS (9.4-12.5); PTT, Activated Partial Thromb 29.5 SECONDS (24.3-36.9); Protime INR 0.95
[2023-12-07] MEDS: FLUMAZENIL 0.1 MG/ML (5 mL VIAL) IV ONE (09:14)
[2023-12-07] MEDS: NALOXONE HCL 2 MG/2 ML VIAL ONE (09:15)
[2023-12-07] MEDS: ONDANSETRON 4 MG/2 ML VIAL ONE (09:15)
[2023-12-07] MEDS: FENTANYL CITR 100 MCG/2 ML ONE (09:16)
[2023-12-07] MEDS: MIDAZOLAM HCL 2 MG/2 ML INJ ONE (09:17)
--- NOTE | 2023-12-07 11:57 | RAD REPORT ---
EXAM DESCRIPTION: Jake Single View12/07/2023 11:11 am CLINICAL HISTORY: s/p right lung bx COMPARISON: CHEST PA AND LAT 2 VIEW dated 04/11/2013 TECHNIQUE: Portable AP view of the chest. FINDINGS: Right mid lung known 2.7 cm mass. Questionable trace peripheral pneumothorax near the righ t apex, with at most 3 mm pleural separation. Soft tissue gas in the right axilla. The left lung is c lear. The cardiomediastinal contours are unremarkable. IMPRESSION: Questionable trace peripheral right pneumothorax near the apex.
--- NOTE | 2023-12-07 12:37 | RAD REPORT ---
EXAM DESCRIPTION: CT - Lung Biopsy Perc w/CT - 12/07/2023 10:48 am CLINICAL HISTORY: right lung bx COMPARISON: Outside PET-CT of 2023. Chest Single View dated 12/07/2023; Head C Spine Cap W Con dated 03/11/2019 FINDINGS: Preoperative diagnosis: Right lung mass Post operative diagnosis: Same Conscious Sedation: A total of 75 microgram fentanyl and 1 milligram Versed were administered intrave nously. Total sedation time: 23 minutes. Patient was continuously monitored by nursing staff. Contrast used: NONE Estimated blood loss: less than 5 mL Specimens: As below Informed consent was obtained following discussion of the risks and benefits with the patient. Time-o ut procedure was performed. The patient was placed in supine position on the table and the right uppe r anterior chest area was prepped and draped in the usual sterile fashion. 1% lidocaine was infiltrat ed into the subcutaneous tissues for local anesthesia. Under computed tomographic guidance, a 19 gau ge introducer was advanced into the lesion. Subsequently, a 20 gauge, 20 mm throw core biopsy gun was advanced into the lesion and 4 soft tissue cores were obtained. Postprocedure imaging demonstrated a small right apical and lateral pneumothorax. Samples were given to pathology for analysis. The patient tolerated the procedure without immediate complication and tra nsferred to the recovery room in stable condition. IMPRESSION: Successful CT-guided biopsy of a right upper lobe mass. At the conclusion of the procedure, a small right apical and lateral pneumothorax was observed. All CT scans are performed using dose optimization technique as appropriate and may include automated exposure control or mA/KV adjustment according to patient size.
--- NOTE | 2023-12-07 13:01 | RAD REPORT ---
EXAM DESCRIPTION: RAD - Chest Pa And Lat (2 Views) - 12/07/2023 12:46 pm CLINICAL HISTORY: R/O PNEUMOTHORAX S/P RIGH LUNG BIOPSY COMPARISON: Chest Single View dated 12/07/2023; CHEST PA AND LAT 2 VIEW dated 04/11/2013; Lung Biopsy Perc w/CT dated 12/07/2023 TECHNIQUE: PA and lateral views of the chest were obtained. FINDINGS: Pneumothorax has progressed on the right, with pleura secretion now measuring 1.9 cm. Righ t midlung mass again seen. Stable right axillary soft tissue gas. Heart size is normal and central va sculature is within normal limits. No pleural effusion. No acute bony finding noted. IMPRESSION: Worsening right pneumothorax as above. The findings were discussed with Dr. Martinez on 12/07/2023 at 12:56 hours, for need for a chest tube.
--- OUTSIDE RECORDS SUMMARY | 2023-12-07 13:53 | XMS REPORT | Clinical Summary ---
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 Name Role Phone Fortino Alvarez MD Primary Care Provider [phone] Fortino Alvarez MD Unavailable Lius Carlos POLANCO MD, William J Unavailable [phone] Efren Mueller MD Unavailable Socorro Gil Unavailable [phone] Fazal Mueller MD Unavailable Magaly Xavier NP Unavailable [phone] Yesenia Wright Unavailable [phone] Santi Lozano MD Unavailable Aime Bartlett MD Unavailable Stevie Covarrubias MD Unavailable Allergies No known active allergies Medications Medication Sig Dispensed Refills Start Date End Date Status MULTIVITAMIN ORAL Take 1 tablet by mouth daily. Active albuterol (PROAIR HFA) 90 mcg/puff inhalerIndications :Wheezing,Other emphysema Inhale 2 puffs by mouth every 6 (six) hours as needed for wheezing or shortness of breath. 18 g 3 03/04/2016 Active losartan (COZAAR) 50 mg tabletIndications: Other emphysema Take 1 tablet (50 mg) by mouth daily. 30 tablet 05/05/2016 Active Additional Information Patient not taking.Reason: not taking, Reported on 05/17/2019 tiotropium (SPIRIVA WITH HANDIHALER) 18 mcg inhalation capsuleIndications :Wheezing,Other emphysema Insert 1 capsule in handi-haler and inhale orally once daily. 30 each 05/05/2016 Active Additional Information Patient not taking.Reason: No longer taking, Reported on 06/02/2019 umeclidinium-vilan terol (ANORO ELLIPTA) 62.5-25 mcg/actuation dsdv Inhale 1 puff by mouth daily. 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 Elevated prostate specific antigen (PSA) Benign prostatic hypertrophy with outflow obstruction (aka BPH with urinary obstruction) Chronic depression Smoker (aka Current smoker) Surgical History Surgery Date Site/Laterality Comments REPAIR OF REDUCIBLE INGUINAL HERNIA Right REPAIR OF REDUCIBLE INGUINAL HERNIA Left HERNIA REPAIR 04/13/2004 - 04/12/2005 UPPER GASTROINTESTINAL ENDOSCOPY 06/11/2014 - 07/11/2014 Medical History Medical History Date Comments Chronic depression Benign prostatic hypertrophy with outflow obstru ction Elevated prostate specific antigen (PSA) Smoker 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) Chronic obstructive pulmonary disease very occaisonally Sexual dysfunction Disorder of prostate Blood transfusion, without reported diagnosis - 2014 Psoriasis Family History Medical History Relation Name Comments Multiple sclerosis Sister Relation Name Status Comments Sister Social History Tobacco Use Types Packs/Day Years Used Date Smoking Tobacco: Light Smoker Cigarettes 0.3 50 Smokeless Tobacco: Never Tobacco Cessation:Ready to Q uit: Yes Alcohol Use Standard Drinks/Week Comments Yes 0 (1 standard drink = 0.6 oz pur e alcohol) 2.0 oz daily Sex and Gender Information Value Date Recorded Sex Assigned at Not on file Gender Identity Not on file Sexual Orientation Not on file Obstetrics History Plan of Treatment Health Maintenance Due Date Last Done Comments Pneumococcal Vaccine: 65+ Years (1 of 1 - PCV) 013 COVID-19 Vaccine ( season) 2022 Influenza Vaccine 12/13/2023 Advance Directives * Full Code (Latest Code Status on File) Date Activated Date Inactivated Comments 02/29/2016 9:56 AM 02/29/2016 12:36 PM Care Teams 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 [place] [address] PCP - External Primary Care Provider Family Practice 05/17/19 Fortino Alvarez MD [address] [place] [address] [email or web address] 06/20/15 Bo Aldridge IV, MD [address] [place] [id number] [email or web address] 06/20/15 Efren Mueller MD [address] [place] [id number] [email or web address] 06/20/15 Socorro Gil PA [address] [place] [id number] [email or web address] Physician Freight Service Inspector 06/20/15 Fazal Mueller MD [address] [place] [id number] [email or web address] 06/20/15 Magaly Xavier NP [address] [place] [id number] [email or web address] Practitioner 06/20/15 Yesenia Wright PA [address] [place] [id number] [email or web address] Physician Freight Service Inspector 06/20/15 Aime Bartlett MD [address] [place] [id number] [email or web address] Physician Internal Medicine 03/04/16 Stevie Covarrubias MD [address] [place] [id number] [email or web address] [email or web address] Physician Surgical Oncology 02/26/16
--- NOTE | 2023-12-07 14:21 | P.HP ---
Certification for Inpatient Patient admitted to: Inpatient With expected LOS: <2 Midnights Practitioner: I am a practitioner with admitting privileges, knowledge of patient current condition, hospital course, and medical plan of care. Services: Services provided to patient in accordance with Admission requirements found in Title 42 Section 412.3 of the Code of Federal Regulations Patient History Date of Service: 12/07/23 Reason for admission: Right pneumothorax History of Present Illness: Star Baig is a 77 year old male with Pmhx Who came to the hospital for a lung biopsy, during the proceure it was noted he had a Right pneumothorax. Chest xray s/p biopsy showing worsening right pneumothorax requiring a chest tube Chest xray reports "Pneumothorax has progressed on the right, with pleura secretion now measuring 1.9 cm. Right midlung mass again seen. Stable right axillary soft tissue gas. Heart size is normal and central vasculature is within normal limits. No pleural effusion. No acute bony finding noted. IMPRESSION: Worsening right pneumothorax as above. Star will be admitted to hospitalist service for further treatment. Dr. Cano is primary Allergies No Known Allergies Allergy (Verified 06/12/13 23:25) Home Medications: Amlodipine [Norvasc*] 10 mg PO DAILY 12/07/23 Atorvastatin Calcium [Lipitor] 40 mg PO DAILY 12/07/23 Budesonide/Glycopyr/Formoterol [Breztri Aerosphere Inhaler] 4 puff IH DAILY 12/07/23 Tamsulosin [Flomax*] 2 cap PO DAILY 12/07/23 Varenicline Tartrate [Chantix] 2 tab PO DAILY 12/07/23 - Past Medical/Surgical History Diabetic: No -: hernia repair - Social History Alcohol use: Yes CD- Drugs: No Caffeine use: Yes Physical Examination - Vital Signs Temperature: 97.2 F Blood Pressure: 115/65 Pulse: 80 Respirations: 16 - Studies Laboratory Data (last 24 hrs) 12/07/23 12/07/23 08:39 08:39 Plt Count 163 PT 10.7 INR 0.95 APTT 29.5 Assessment and Plan - Plan Assessment and plan Acute right pneumothorax status post lung biopsy -Chest tube placed by Dr. Cano -Incentive parameter -Oxygen supplementation -Serial chest x-rays Discharge Plan: Home Plan to discharge in: 72 Hours - Advance Directives Does patient have a Living Will: No Does patient have a Durable POA for Healthcare: No
[2023-12-07] MEDS ORDERED: ONDANSETRON 4 MG/2 ML VIAL IV PRN (14:22)
[2023-12-07] MEDS ORDERED: MORPHINE 2 MG/ML SYR IV PRN (14:22)
--- NOTE | 2023-12-07 15:07 | RAD REPORT ---
EXAM DESCRIPTION: Jake Single View12/07/2023 2:48 pm CLINICAL HISTORY: Right pneumothorax COMPARISON: Chest film earlier on same date FINDINGS: Overall no significant change in size of right pneumothorax since chest film earlier same date. The pneumothorax extends from right apex to right lower hemithorax IMPRESSION: No significant change in the right pneumothorax. It is small to moderate to moderate in size. Close follow-up is recommended
[2023-12-07 16:08] VITALS: BMI 26.4
[2023-12-07] MEDS: D5 0.9 NS 1,000 ML IV SCH (16:10)
--- NOTE | 2023-12-07 17:24 | P.HP ---
Certification for Inpatient Patient admitted to: Observation With expected LOS: <2 Midnights Practitioner: I am a practitioner with admitting privileges, knowledge of patient current condition, hospital course, and medical plan of care. Services: Services provided to patient in accordance with Admission requirements found in Title 42 Section 412.3 of the Code of Federal Regulations Patient History Date of Service: 12/07/23 Reason for admission: Right pneumothorax History of Present Illness: 77-year-old gentleman with a history of COPD, tobacco use, recently noted to have a right mid lung mass underwent CT-guided biopsy of the lung mass. Postprocedure chest x-ray showed patient has right apical pneumothorax and right axillary soft tissue gas. Radiologist consulted hospitalist service and general surgery Dr. Garrett to evaluate patient for hospitalization and possible chest tube. Patient reports she is a current smoker but has cut down to about 6 cigarettes/day. He reports chronic shortness of breath. Patient was puffing during my examination. He appears stable including his oxygen via nasal cannula Patient is admitted for further management. Allergies No Known Allergies Allergy (Verified 06/12/13 23:25) Home Medications: Amlodipine [Norvasc*] 10 mg PO DAILY 12/07/23 Atorvastatin Calcium [Lipitor] 40 mg PO DAILY 12/07/23 Budesonide/Glycopyr/Formoterol [Breztri Aerosphere Inhaler] 4 puff IH DAILY 12/07/23 Tamsulosin [Flomax*] 2 cap PO DAILY 12/07/23 Varenicline Tartrate [Chantix] 2 tab PO DAILY 12/07/23 - Past Medical/Surgical History Has patient received pneumonia vaccine in the past: Yes Diabetic: No -: BPH -: HTN -: HLD -: COPD -: Stroke 2020 -: hernia repair - Family History Family History: Reviewed- Non-Contributory (Patient denies any history of cancer in the family) - Social History Smoking Status: Current every day smoker Alcohol use: Yes CD- Drugs: No Caffeine use: Yes Place of Residence: Home Review of Systems Other: Patient denied any chest pain, he denied any wheezing, he denied any cough. Except as documented, all other systems reviewed and negative. Physical Examination - Vital Signs Temperature: 96.9 F Blood Pressure: 128/69 Pulse: 91 Respirations: 23 Pulse Ox (%): 97 - Physical Exam General: Alert, In no apparent distress, Oriented x3 HEENT: Atraumatic, Mucous membr. moist/pink, EOMI, Sclerae nonicteric Neck: Supple, JVD not distended, JVD distended Respiratory: Diminished (Bilateral), Other (No rhonchi or rales) Cardiovascular: No edema, Regular rate/rhythm, Normal S1 S2 Gastrointestinal: Normal bowel sounds, Soft and benign, Non-distended, No tenderness Musculoskeletal: No swelling Integumentary: No rashes, No cyanosis Neurological: Normal strength at 5/5 x4 extr - Studies Laboratory Data (last 24 hrs) 12/07/23 12/07/23 08:39 08:39 Plt Count 163 PT 10.7 INR 0.95 APTT 29.5 Assessment and Plan - Problems (Diagnosis) (1) Pneumothorax, right Current Visit: Yes Status: Acute (2) COPD (chronic obstructive pulmonary disease) Current Visit: Yes Status: Acute (3) Lung mass Current Visit: Yes Status: Acute (4) BPH (benign prostatic hyperplasia) Current Visit: Yes Status: Acute (5) Hypertension Current Visit: Yes Status: Acute - Plan Pneumothorax Lung mass Admit patient to the ICU For close monitoring Surgery Dr. Cano consulted. As of now serial chest x-ray is showing stable small to moderate right pneumoth orax. Continue monitoring with serial chest x-ray.per Dr. Cano. COPD Patient with advanced COPD Chronically short of breath. Supplemental oxygen as needed. I suspect patient has chronic hypoxic respiratory failure. Home oxygen evaluation prior to discharge. BPH Resume home dose tamsulosin. Essential hypertension Patient is currently normotensive. Will hold antihypertensives due to increased risk of hypotension with pneumothorax. Monitor BP. DVT prophylaxis: SCD Advanced directive: Full code. - Advance Directives Does patient have a Living Will: No Does patient have a Durable POA for Healthcare: No
[2023-12-07 17:49] LABS: Absolute Basophils 0.1 K/uL (0-0.5); Absolute Eosinophils 0.1 K/uL (0-0.5); Absolute Lymphocytes (CBC) 0.7 K/uL (0.7-4.9); Absolute Monocytes 0.4 K/uL (0.1-1.3); Absolute Neutrophil 6.3 K/uL (1.8-8.0); Eosinophils % 1.8 % (0-4.4); Hematocrit 35.5 % (39.6-49.0); Hemoglobin 11.7 g/dL (13.6-17.9); Lymphocytes % 9.1 % (15.3-44.8); MCH 31.3 pg (27.0-35.0); MCHC 32.9 g/dL (32.0-36.0); MCV 95.1 fL (80-100); MPV 9.6 fL (7.6-11.3); Monocytes % 5.2 % (3.3-12.3); Neutrophils % 82.9 % (41.7-73.7); Platelets 152 thou/uL (152-406); RBC Red Blood Cell Count 3.73 M/uL (4.33-5.43); Red Cell Distribution Width 15.2 % (12.1-15.2)
[2023-12-07 17:53] LABS: PT Prothrombin Time 11.5 SECONDS (9.4-12.5); Protime INR 1.03
[2023-12-07 18:06] LABS: Albumin 3.2 g/dL (3.4-5.0); Anion Gap 6.3 mEq/L (5.0-15.0); Bilirubin Total 0.4 mg/dL (0.2-1.0); Globulin 3.2 g/dL (2.3-3.5); Magnesium 1.8 mg/dL (1.6-2.4); Potassium 4.3 mEq/L (3.5-5.1); Protein, Total 6.4 g/dL (6.4-8.2)
[2023-12-07] MEDS: ALBUTEROL 2.5 MG/3 ML NEB SOL NEB SCH (20:28)
[2023-12-07] MEDS: IPRATROPIUM BROM 0.5MG/2.5ML NEB SCH (20:29)
--- NOTE | 2023-12-07 21:42 | CON ---
Date of Consultation: 12/07/2023 Reason For Consultation: Right pneumothorax. History Of Present Illness: The patient is a 77-year-old gentleman who underwent a right lung mass biopsy by IR earlier today and he was noted to have right axillary soft tissue air present at the time of biopsy. A followup chest x-ray 2 hours later showed right-sided pneumothorax. The patient was clinically stable and was monitored for the next couple of hours and repeat x-ray showed no progression of the pneumothorax at 2:30pm. On examination, patient is awake, alert. States that initially after the procedure, he was a little short of breath, but since that time he has been stable, has not worsened and he has no difficulty breathing. He is on oxygen currently and saturating very well. He is awake and alert. He denies any sore throat, runny nose, cough, headaches, dizziness. No chest pain. Review of Systems: Otherwise, unremarkable. Past Medical History: Negative. Past Surgical History: Bilateral inguinal hernia repair. Social History: The patient does smoke a pack a day and does use alcohol daily. Physical Examination: Vital Signs: Stable. His sats are 99% on nasal cannula 3 L. He is afebrile. General: He is awake and alert. Head and Neck: No masses. Chest: Clear, but slightly diminished breath sounds on the right side. Heart: S1, S2. Abdomen: Soft. Extremities: Neurovascularly intact. Neuro: Nonfocal. Diagnostic Data: Reviewed in detail with the radiologist. Laboratory Data: Pending. Assessment: Right-sided pneumothorax following an IR procedure, stable over the last 6 hours. Recommendations: Admit the patient for observation and we will repeat chest x- ray 6 hours from the last x-ray and also 1 in the morning and should he not progress he could perhaps be discharged tomorrow. If he clinically worsens then he may need intervention and placement of chest tube. We will have a chest tube kit ready to be placed at the bedside, and he will be closely monitored in the ICU overnight. JANETH/NATALIE Voice ID: [id number] Report ID: [id number] MAZIN
[2023-12-08 06:06] LABS: Absolute Basophils 0.2 K/uL (0-0.5); Absolute Eosinophils 0.2 K/uL (0-0.5); Absolute Lymphocytes (CBC) 0.9 K/uL (0.7-4.9); Absolute Monocytes 0.5 K/uL (0.1-1.3); Absolute Neutrophil 6.3 K/uL (1.8-8.0); Basophils % 2.7 % (0-1.3); Eosinophils % 2.5 % (0-4.4); Hematocrit 35.8 % (39.6-49.0); Hemoglobin 12.1 g/dL (13.6-17.9); Lymphocytes % 11.2 % (15.3-44.8); MCH 31.9 pg (27.0-35.0); MCHC 33.9 g/dL (32.0-36.0); MCV 94.2 fL (80-100); Monocytes % 6.1 % (3.3-12.3); Neutrophils % 77.5 % (41.7-73.7); Platelets 178 thou/uL (152-406); Red Cell Distribution Width 15.2 % (12.1-15.2)
[2023-12-08 06:23] LABS: Anion Gap 5.6 mEq/L (5.0-15.0); Magnesium 1.9 mg/dL (1.6-2.4); Phosphorus 2.4 mg/dL (2.5-4.9); Potassium 3.6 mEq/L (3.5-5.1)
--- NOTE | 2023-12-08 08:05 | RAD REPORT ---
[facility]47 am CLINICAL HISTORY: R/O Pneumo COMPARISON: Chest Single View dated 12/07/2023; Chest Pa And Lat (2 Views) dated 12/07/2023; Chest Sin gle View dated 12/07/2023; CHEST PA AND LAT 2 VIEW dated 04/11/2013 TECHNIQUE: Portable AP view of the chest. FINDINGS: No effusion. No new focal airspace opacity. Stable small right apical and lateral pneumoth orax, compared to the most recent chest radiograph, with 12 mm pleural separation, mildly decreased i n size relative to the preceding radiograph. Right midlung mass is stable. The cardiomediastinal cont ours are unremarkable. IMPRESSION: Stable small right apical and lateral pneumothorax.
[2023-12-08] MEDS: POTASSIUM PHOS IN 0.9 % NACL 15 MMOL/250 ML BAG IV SCH (09:15)
[2023-12-08 10:17] VITALS: O2SAT 99
--- NOTE | 2023-12-08 10:24 | P.PN ---
Date of Service: 12/08/23 Subjective: Patient is awake and alert. Patient does not have dyspnea. Patient is breathing comfortably. Patient is oxygen level is greater than 95% on 1 L. Objective: Vital signs stable, afebrilechest x-ray shows slight decrease in the pneumothorax Lungs: Clear with diminished breath sounds slightly in the right base Assessment: Pneumothorax after lung mass biopsyimproving Plan: Patient cleared for discharge this afternoon. Patient can follow-up with Dr. Lamar. Patient does not need any surgical intervention at this time. Plan of care discussed with Dr. Boone. CC:
[2023-12-08 12:04] VITALS: TEMP 97.7
--- NOTE | 2023-12-08 13:09 | P.DS ---
Admission Date: 12/07/23 Discharge Date: 12/08/23 Disposition: ROUTINE DISCHARGE Discharge Condition: GOOD Reason for Admission: Right pneumothorax Consultations: Dr. Cano general surgery Brief History of Present Illness: 77-year-old gentleman with a history of COPD, tobacco use, recently noted to have a right mid lung mass underwent CT-guided biopsy of the lung mass. Postprocedure chest x-ray showed patient has right apical pneumothorax and right axillary soft tissue gas. Radiologist consulted hospitalist service and general surgery Dr. Garrett to evaluate patient for hospitalization and possible chest tube. Patient reports she is a current smoker but has cut down to about 6 cigarettes/day. He reports chronic shortness of breath. Patient was puffing during my examination. He appears stable including his oxygen via nasal cannula Patient is admitted for further management. Hospital Course: Problem List Pneumothorax COPD BPH Essential hypertension Patient was admitted to the hospital after undergoing CT-guided lung biopsy with subsequent small right apical pneumothorax. He had serial chest x-rays which showed ongoing stability of small right apical pneumothorax, his shortness of breath has improved. He did not require chest tube placement, he was seen and followed by general surgery during his stay and is stable for discharge at this point. Patient was counseled on the importance of tobacco cessation, further follow-up regarding his lung mass after biopsy. It is suspected the patient has chronic hypoxic respiratory failure with his longstanding COPD, it was noted that he does become hypoxic with exertion, down to 87 to 88% with ambulation, typically recovers to sats around 92% after 30 seconds or so. He did qualify for home O2 which has been arranged prior to discharge. Recommend close follow- up with pulmonology for further management of COPD, chronic hypoxic respiratory failure, pneumothorax. Please resume your medications as previously prescribed Please stop smoking If you develop any worsening shortness of breath or chest pain please go to the closest emergency department Home oxygen provided by: [employer] [place] P: [phone] Vital Signs/Physical Exam: Temp Pulse Resp BP Pulse Ox 97.7 F 97 H 28 H 132/72 91 12/08/23 12:00 12/08/23 12:00 12/08/23 12:00 12/08/23 12:12/08/23 11:00 General: Alert, In no apparent distress, Oriented x3 HEENT: Atraumatic, PERRLA Neck: Supple, JVD not distended Respiratory: Diminished, Expiratory wheezes Cardiovascular: Regular rate/rhythm, Normal S1 S2 Gastrointestinal: Normal bowel sounds Musculoskeletal: No tenderness Integumentary: No rashes Neurological: Normal speech, Normal tone, Normal affect Laboratory Data at Discharge: WBC 8.10 thou/uL (4.3-10.9) 12/08/23 05:40 Hgb 12.1 g/dL (13.6-17.9) L 12/08/23 05:40 Hct 35.8 % (39.6-49.0) L 12/08/23 05:40 Plt Count 178 thou/uL (152-406) 12/08/23 05:40 PT 11.5 SECONDS (9.4-12.5) 12/07/23 17:35 INR 1.03 12/07/23 17:35 APTT 29.5 SECONDS (24.3-36.9) 12/07/23 08:39 Sodium 139 mEq/L (136-145) 12/08/23 05:40 Potassium 3.6 mEq/L (3.5-5.1) D 12/08/23 05:40 BUN 16 mg/dL (7-18) 12/08/23 05:40 Creatinine 1.04 mg/dL (0.70-1.30) 12/08/23 05:40 Glucose 117 mg/dL (74-106) H 12/08/23 05:40 Phosphorus 2.4 mg/dL (2.5-4.9) L 12/08/23 05:40 Magnesium 1.9 mg/dL (1.6-2.4) 12/08/23 05:40 Total Bilirubin 0.4 mg/dL (0.2-1.0) 12/07/23 17:35 AST 11 U/L (15-37) L 12/07/23 17:35 ALT 15 U/L (16-61) L 12/07/23 17:35 Alkaline Phosphatase 67 U/L (45-117) 12/07/23 17:35 Home Medications: Amlodipine [Norvasc*] 10 mg PO DAILY 12/07/23 Atorvastatin Calcium [Lipitor] 40 mg PO DAILY 12/07/23 Budesonide/Glycopyr/Formoterol [Breztri Aerosphere Inhaler] 4 puff IH DAILY 12/07/23 Tamsulosin [Flomax*] 2 cap PO DAILY 12/07/23 Varenicline Tartrate [Chantix] 2 tab PO DAILY 12/07/23 Physician Discharge Instructions: Patient was admitted to the hospital after undergoing CT-guided lung biopsy with subsequent small right apical pneumothorax. He had serial chest x-rays which showed ongoing stability of small right apical pneumothorax, his shortness of breath has improved. He did not require chest tube placement, he was seen and followed by general surgery during his stay and is stable for discharge at this point. Patient was counseled on the importance of tobacco cessation, further follow-up regarding his lung mass after biopsy. It is suspected the patient has chronic hypoxic respiratory failure with his longstanding COPD, it was noted that he does become hypoxic with exertion, down to 87 to 88% with ambulation, typically recovers to sats around 92% after 30 seconds or so. He did qualify for home O2 which has been arranged prior to discharge. Recommend close follow- up with pulmonology for further management of COPD, chronic hypoxic respiratory failure, pneumothorax. Please resume your medications as previously prescribed Please stop smoking If you develop any worsening shortness of breath or chest pain please go to the closest emergency department Home oxygen provided by: [employer] [place] P: [phone] Diet: Regular Activity: Ad madelin Followup: Trevin Valdes MD [ACTIVE - CAN ADMIT] - 2-3 Days Rosario Lamar MD [ACTIVE - CAN ADMIT] - 1 Week Time spent managing pt's care (in minutes): 36
[2023-12-08 14:13] VITALS: BP 141/76
== END 2023-12-08 16:00 | disposition home or self-care (01) ==
LOC: DS 08:04 → 4TH 13:18 → 3RD-ICU 15:22
PROVIDERS: ADMIT Surgery; ATTEND Hospitalist
PROC: 0BBC3ZX Excision of Right Upper Lung Lobe, Percutaneous Approach, Diagnostic (ICD-10-PCS; principal; 2023-12-07)
DX: J93.9 Pneumothorax, unspecified (principal); C61 Malignant neoplasm of prostate; C85.99 Non-Hodgkin lymphoma, unspecified, extranodal and solid organ sites; R91.1 Solitary pulmonary nodule; J44.9 Chronic obstructive pulmonary disease, unspecified; F17.210 Nicotine dependence, cigarettes, uncomplicated; N40.0 Benign prostatic hyperplasia without lower urinary tract symptoms; I10 Essential (primary) hypertension; J96.91 Respiratory failure, unspecified with hypoxia
CPT/HCPCS: 85025 ×2; 80048; 36415; 83735 ×2; 84100 ×2; 85049; 85610 ×2; 88305; 85730; 80053; 77012; 71045 ×3; 71046; 94640; 94760 ×3; 32408; J7613 ×4; J7644 ×4; J2250; J3010; J7042; J7030; G0378; G0379; J2310; J2405

== ENCOUNTER 2024-04-09 10:55 | Inpatient (IN) | payer OTHER, SELFPAY ==
[2024-04-09 11:38] LABS: Absolute Basophils 0.1 K/uL (0-0.5); Absolute Monocytes 0.2 K/uL (0.1-1.3); Absolute Neutrophil 4.3 K/uL (1.8-8.0); Basophils % 1.2 % (0-1.3); Eosinophils % 0.1 % (0-4.4); Hematocrit 34.4 % (39.6-49.0); Hemoglobin 11.4 g/dL (13.6-17.9); Lymphocytes % 0.8 % (15.3-44.8); MCH 32.3 pg (27.0-35.0); MCHC 33.1 g/dL (32.0-36.0); MCV 97.6 fL (80-100); MPV 9.8 fL (7.6-11.3); Monocytes % 3.8 % (3.3-12.3); Neutrophils % 94.1 % (41.7-73.7); Nucleated Red Blood Cells % 0.1 % (0-0); Platelets 98 thou/uL (152-406); RBC Red Blood Cell Count 3.52 M/uL (4.33-5.43); Red Cell Distribution Width 15.6 % (12.1-15.2)
[2024-04-09 11:53] LABS: Albumin 3.2 g/dL (3.4-5.0); Albumin/Globulin Ratio 0.9 (1.1-1.8); Anion Gap 12.7 mEq/L (5.0-15.0); Bilirubin Total 0.3 mg/dL (0.2-1.0); Globulin 3.7 g/dL (2.3-3.5); Potassium 3.7 mEq/L (3.5-5.1); Protein, Total 6.9 g/dL (6.4-8.2)
[2024-04-09] MEDS ORDERED: NA CHLORIDE 0.9% 1,000 ML ONE ×2 (12:02→13:19)
[2024-04-09 12:33] LABS: Band Neutrophils 32 % (0-1); Differential Total Cells Count 100; Metamyelocytes 2 % (0-0); Monocytes 2 % (0-10); Reactive Lymphocytes 2 %; Segmented Neutrophils 62 % (40-80)
[2024-04-09 12:34] LABS: Blood Morphology Comment NOT SEEN (NOT SEEN); Lymphocytes 0 % (15-42); Platelet Estimate DECR
--- NOTE | 2024-04-09 12:43 | RAD REPORT ---
EXAMINATION: CT ABDOMEN AND PELVIS WITH CONTRAST CLINICAL INDICATION: Male, 78 years old.diarrhea TECHNIQUE: CT abdomen and pelvis was performed, after the administration of IV contrast, as per [facility] protocol. Axial, sagittal and coronal reconstructions were obtained. One or more of the following dose reduction techniques were used: Automated exposure control, adjustment of the mA and/o r kV according to patient size, and/or iterative reconstruction. Unless otherwise specified, incidental findings do not require dedicated imaging follow-up. [id number]. COMPARISON: No prior exam. FINDINGS: LOWER CHEST: Emphysema. LIVER: Benign-appearing low-density liver lesions. Atrophic liver. GALLBLADDER/BILE DUCT: No biliary ductal dilatation.? PANCREAS: No significant abnormality. SPLEEN: Normal size. No focal lesion. ADRENALS: Normal; no mass. KIDNEYS AND URETERS: Bilateral renal lesions which are either benign in appearance or too small to ac curately characterize but statistically benign. No hydronephrosis. GASTROINTESTINAL TRACT: Bowel containing right inguinal hernia. No bowel obstruction. There are scatt ered fluid throughout the small bowel and colon. PERITONEUM: No ascites. LYMPH NODES: No lymphadenopathy. ABDOMINAL AORTA AND OTHER VESSELS: Infrarenal abdominal aortic aneurysm measuring 3.3 cm. For managem ent of fusiform aneurysmal abdominal aortas: Recommend follow-up every 3 years. Note: For AAA enlargement of > 0.5 cm in 6 months or > 1 cm in 1 year, recommend vascular consultat ion. References: J Am Rafaela Radiol 2013; 10(10):789-794; J Vasc Surg. 2018; 67:2-77 URINARY BLADDER: Normal contour. REPRODUCTIVE ORGANS: Mild prostatomegaly. MUSCULOSKELETAL: No acute or suspicious osseous abnormality. ADDITIONAL FINDINGS: None. IMPRESSION: Nonspecific fluid within the small bowel and colon which could reflect a mild colitis/diarrheal disea se. No bowel obstruction. Incidentally noted large right inguinal hernia containing colon but without evidence of bowel obstruction or other complicating features.
[2024-04-09] MEDS ORDERED: LOPERAMIDE HCL 2 MG CAPSULE ONE (13:19)
[2024-04-09] MEDS ORDERED: METRONIDAZOLE 500mg IVPB 500 MG/100 ML BAG IV ONE (13:19)
[2024-04-09] MEDS ORDERED: CEFTRIAXONE 1000 MG/VIAL ONE (13:19)
[2024-04-09] MEDS ORDERED: ALBUTEROL 2.5 MG/3 ML NEB SOL ONE (13:53)
[2024-04-09] MEDS ORDERED: IPRATROPIUM BROM 0.5MG/2.5ML ONE (13:53)
--- NOTE | 2024-04-09 14:26 | EDPHYS ---
Physician Documentation [facility] Name: Star Baig Age: 78 yrs Sex: Male : 1945 Arrival Date: 04/09/2024 Time: 10:55 Bed 8 Private MD: ED Physician Yfn Meeks HPI: 04/09 11:17 This 78 yrs old Male presents to ER via EMS with complaints of Diarrhea. sb4 11:17 diarrhea x 4 days. no abdominal pain, nausea, or vomiting. no blood in stool. has not sb4 taken any medications. denies any prior episodes of diarrhea. is on week 3 of chemo and radiation therapy for a lung mass. Historical: - Allergies: 11:01 No Known Allergies; bp - PMHx: 11:01 Hypertensive disorder; bp - Immunization history:: Adult Immunizations up to date. - Infectious Disease History:: Denies. - Social history:: Smoking status: unknown. ROS: 11:17 Constitutional: Negative for fever, chills, and weight loss, sb4 11:17 Abdomen/GI: Positive for diarrhea, 11:17 All other systems are negative, Exam: 11:17 Constitutional: This is a well developed, well nourished patient who is awake, alert, sb4 and in no acute distress. Head/Face: Normocephalic, atraumatic. Eyes: Extra-ocular motions intact. Periorbital areas with no swelling, redness, or edema. ENT: Mucous membranes moist. Cardiovascular: Regular rate and rhythm with a normal S1 and S2. Respiratory: No increased work of breathing, no retractions or nasal flaring. Abdomen/GI: Soft, non-tender, no distension. Skin: Warm, dry with normal turgor. Normal color with no rashes, no lesions, and no evidence of cellulitis. Vital Signs: 11:00 BP 140 / 78; Pulse 114; Resp 20; Temp 97.8; Pulse Ox 96% on 3 lpm NC; bp 12:42 BP 173 / 104; Pulse 112; Resp 20; Pulse Ox 97% on 3 lpm NC; bp 14:00 BP 192 / 117; Pulse 118; Resp 23; Pulse Ox 98% ; bp 16:00 BP 170 / 97; Pulse 115; Resp 28; Pulse Ox 92% ; bp MDM: 11:05 Medical Screening Exam initiated sb4 14:24 Data reviewed: vital signs, nurses notes, EMS record, lab test result(s), radiologic sb4 studies, and as a result, I will admit patient. Care significantly affected by the following chronic conditions: Hypertension, Chronic Obstructive Pulmonary Disease, Cancer. Counseling: I had a detailed discussion with the patient and/or guardian regarding the historical points, exam findings, and any diagnostic results supporting the discharge/admit diagnosis, lab results, radiology results, the need for further work-up and treatment in the hospital. 04/09 11:14 Order name: CBC with Diff; Complete Time: 12:37 sb4 04/09 11:14 Order name: CMP; Complete Time: 11:54 sb4 04/09 11:14 Order name: Lipase; Complete Time: 11:54 sb4 04/09 11:14 Order name: Fecal Leukocyte Stain sb4 04/09 11:14 Order name: Ova And Parasites sb4 04/09 11:14 Order name: Rotavirus Antigen sb4 04/09 11:14 Order name: Stool Culture sb4 04/09 11:14 Order name: CDIFF sb4 04/09 11:43 Order name: Manual Differential; Complete Time: 12:37 EDMS 04/09 11:55 Order name: CT Abd/Pelvis - IV Contrast Only; Complete Time: 12:46 sb4 04/09 11:14 Order name: IV Saline Lock; Complete Time: 11:44 sb4 04/09 11:14 Order name: Labs collected and sent; Complete Time: 11:44 sb4 Administered Medications: 11:45 Drug: NS 0.9% IV 1000 ml IV at 1 bolus Per protocol; to be given as a bolus over 60 bp minutes Route: IV; Rate: 1 bolus; Site: right forearm; 13:15 Drug: NS 0.9% IV 1000 ml IV at 1000 ml once; to be given as a bolus over 60 minutes bp Route: IV; Rate: 1000 ml; Site: right forearm; 13:15 Drug: Rocephin IV 1 grams IV at calculated rate once; Given slow IV push per pharmacy bp instructions Route: IV; Rate: calculated rate; Site: right forearm; 13:15 Drug: metroNIDAZOLE IVPB 500 mg 100 ml IVPB at 200 ml/hr once over 30 mins Volume: 100 bp ml; Route: IVPB; Rate: 200 ml/hr; Infused Over: 30 mins; Site: right forearm; 13:15 Drug: Loperamide PO 4 mg PO once Route: PO; bp 16:09 Follow up: Response: No adverse reaction bp 14:07 Drug: DuoNeb Nebulize (3:1) (2.5 mg - 0.5 mg) 3 ml Nebulizer once Route: Nebulizer; bp 16:09 Follow up: Response: No adverse reaction bp 14:41 CANCELLED (Physician Discretion): amlodipine5 mg PO once sb4 16:07 Drug: amLODIPine PO 10 mg PO once Route: PO; bp 16:09 Follow up: Response: No adverse reaction bp Disposition: 21:27 Co-signature as Attending Physician, Yfn Meeks MD I agree with the assessment and rosy plan of care. Disposition Summary: 04/09/24 14:26 Hospitalization Ordered Notes: Hospitalization Status: Inpatient Admission sb4 Location: Telemetry/MedSurg (Inpatient) sb4 Condition: Fair sb4 Problem: new sb4 Symptoms: are unchanged sb4 Bed/Room Type: Standard sb4 Provider: Jose Alejandro Martinez(04/09/24 14:26) sb4 Room Assignment: 202(04/09/24 15:01) eb Diagnosis - Infectious gastroenteritis and colitis, unspecified sb4 - Dehydration sb4 Forms: - Medication Reconciliation Form sb4 - SBAR form sb4 - Leadership Thank You Letter sb4 Signatures: Dispatcher [employer] Yfn Tariq MD MD cha Peltier, Brian, RN RN Priscila Lloyd Sophia, PA-C PA-C sb4 Corrections: (The following items were deleted from the chart) 11:14 11:14 Fecal Leukocyte Stain+BA.LAB.BRZ ordered. EDMS EDMS 11:14 11:14 Ova and Parasites+MR.LAB.BRZ ordered. EDMS EDMS 11:14 11:14 Rotavirus Antigen+BA.LAB.BRZ ordered. EDMS EDMS 11:14 11:14 Stool Culture+BA.LAB.BRZ ordered. EDMS EDMS 11:14 11:14 C.difficile GDH Ag \T\ Toxin AB+LAB.BRZ ordered. EDMS EDMS 11:55 11:55 Abdomen Pelvis W Con+CT.RAD.BRZ ordered. EDMS EDMS 14:26 14:26 Portillo Hale sb4 sb4 14:41 14:40 amLODIPine PO 5 mg PO once ordered. sb4 sb4 15:01 14:26 sb4 eb
--- NOTE | 2024-04-09 14:26 | ER ---
Nurse's Notes [facility] Name: Star Baig Age: 78 yrs Sex: Male : 1945 Arrival Date: 04/09/2024 Time: 10:55 Bed 8 Private MD: Diagnosis: Infectious gastroenteritis and colitis, unspecified;Dehydration Presentation: 04/09 11:00 Chief complaint: EMS states: DIARRHEA x3 DAYS SINCE LATEST XRT. Coronavirus screen: At bp this time, the client does not indicate any symptoms associated with coronavirus-19. Ebola Screen: No symptoms or risks identified at this time. Initial Sepsis Screen: Does the patient meet any 2 criteria? HR > 90 bpm. No. Patient's initial sepsis screen is negative. Does the patient have a suspected source of infection? No. Patient's initial sepsis screen is negative. Risk Assessment: Do you want to hurt yourself or someone else? Patient reports no desire to harm self or others. Note PT ON XRT 5 DAYS/WK FOR LUNG MASS. Onset of symptoms is unknown. 11:00 Method Of Arrival: EMS: [facility] bp 11:00 Acuity: SOCO 3 bp Triage Assessment: 11:01 General: Appears in no apparent distress. Behavior is calm, cooperative, appropriate bp for age. Pain: Denies pain. EENT: No deficits noted. Neuro: No deficits noted. Cardiovascular: Rhythm is sinus tachycardia. Respiratory: Reports shortness of breath. GI: Reports diarrhea. : No signs and/or symptoms were reported regarding the genitourinary system. Derm: No deficits noted. Musculoskeletal: No deficits noted. Historical: - Allergies: 11: No Known Allergies; bp - PMHx: 11: Hypertensive disorder; bp - Immunization history:: Adult Immunizations up to date. - Infectious Disease History:: Denies. - Social history:: Smoking status: unknown. Screenin:02 [facility] ED Fall Risk Assessment (Adult) History of falling in the last 3 months, bp including since admission No falls in past 3 months (0 pts) Confusion or Disorientation No (0 pts) Intoxicated or Sedated No (0 pts) Impaired Gait No (0 pts) Mobility Assist Device Used No (0 pt) Altered Elimination No (0 pt) Score/Fall Risk Level 0 - 2 = Low Risk Oriented to surroundings. Abuse screen: Denies threats or abuse. Denies injuries from another. Nutritional screening: No deficits noted. Tuberculosis screening: No symptoms or risk factors identified. Assessment: 11:02 General: Appears in no apparent distress. Behavior is calm, cooperative, appropriate bp for age. 12:44 Reassessment: No changes from previously documented assessment. Patient is alert, bp oriented x 3, equal unlabored respirations, skin warm/dry/pink. 15:45 Reassessment: REPORT FAXED FOR RM 202. bp Vital Signs: 11:00 BP 140 / 78; Pulse 114; Resp 20; Temp 97.8; Pulse Ox 96% on 3 lpm NC; bp 12:42 BP 173 / 104; Pulse 112; Resp 20; Pulse Ox 97% on 3 lpm NC; bp 14:00 BP 192 / 117; Pulse 118; Resp 23; Pulse Ox 98% ; bp 16:00 BP 170 / 97; Pulse 115; Resp 28; Pulse Ox 92% ; bp ED Course: 11:00 Patient arrived in ED. bp 11:01 Triage completed. bp 11:01 Arm band placed on. bp 11:02 Patient has correct armband on for positive identification. bp 11:04 Manuel Lundberg, RAF is Primary Nurse. bp 11:05 Reba Currie PA-C is PHCP. sb4 11:05 Yfn Meeks MD is Attending Physician. sb4 11:30 Initial lab(s) drawn, by me, sent to lab. Inserted saline lock: 20 gauge in right bp forearm, using aseptic technique. Blood collected. Flushed with 10 mL NS. 12:33 CT Abd/Pelvis - IV Contrast Only In Process Unspecified. EDMS 14:25 Portillo Hale MD is Hospitalizing Provider. sb4 14:26 Jose Alejandro Martinez is Hospitalizing Provider. sb4 Administered Medications: 11:45 Drug: NS 0.9% IV 1000 ml IV at 1 bolus Per protocol; to be given as a bolus over 60 bp minutes Route: IV; Rate: 1 bolus; Site: right forearm; 13:15 Drug: NS 0.9% IV 1000 ml IV at 1000 ml once; to be given as a bolus over 60 minutes bp Route: IV; Rate: 1000 ml; Site: right forearm; 13:15 Drug: Rocephin IV 1 grams IV at calculated rate once; Given slow IV push per pharmacy bp instructions Route: IV; Rate: calculated rate; Site: right forearm; 13:15 Drug: metroNIDAZOLE IVPB 500 mg 100 ml IVPB at 200 ml/hr once over 30 mins Volume: 100 bp ml; Route: IVPB; Rate: 200 ml/hr; Infused Over: 30 mins; Site: right forearm; 13:15 Drug: Loperamide PO 4 mg PO once Route: PO; bp 16:09 Follow up: Response: No adverse reaction bp 14:07 Drug: DuoNeb Nebulize (3:1) (2.5 mg - 0.5 mg) 3 ml Nebulizer once Route: Nebulizer; bp 16:09 Follow up: Response: No adverse reaction bp 14:41 CANCELLED (Physician Discretion): amlodipine5 mg PO once sb4 16:07 Drug: amLODIPine PO 10 mg PO once Route: PO; bp 16:09 Follow up: Response: No adverse reaction bp Medication: 11:02 VIS not applicable for this client. bp Outcome: 14:26 Decision to Hospitalize by Provider. sb4 16:29 Patient left the ED. bp Signatures: Dispatcher [employer] EDManuel Baker, RN RN Reba Quintero PA-C PAClaire sb4
--- NOTE | 2024-04-09 14:58 | P.HP ---
Certification for Inpatient Patient admitted to: Inpatient With expected LOS: >2 Midnights Patient will require the following post-hospital care: None Practitioner: I am a practitioner with admitting privileges, knowledge of patient current condition, hospital course, and medical plan of care. Services: Services provided to patient in accordance with Admission requirements found in Title 42 Section 412.3 of the Code of Federal Regulations Patient History Date of Service: 04/09/24 Reason for admission: Colitis History of Present Illness: 78-year-old male currently on chemotherapy, radiation for lung cancer, hypertension, hyperlipidemia, COPD on home O2 at around 2 L presents to the emergency department with chief complaint of diarrhea. He reports has had diarrhea for the last 4 days or so, his last chemo was on Wednesday 04/04, last had radiation yesterday. He was evaluated in the emergency department his labs were significant for a 32% bands, white blood cell count 4.6 hemoglobin 11.[address] shows mild colitis versus diarrheal state, incidentally noted large right inguinal hernia containing colon but without evidence of bowel obstruction or other complicating features. Patient was treated with IV antibiotics, IV fluids but still tachycardic with heart rate 110-120 despite duration and IV fluids. He will need to be admitted to the hospital for further management. - Past Medical/Surgical History -: COPD on O2 -: Lung cancer -: Hypertension -: BPH -: Stomach cancer-distant past -: Hernia repair Psychosocial/ Personal History: Lives at home with family - Social History Smoking Status: Former smoker Place of Residence: Home Review of Systems 10-point ROS is otherwise unremarkable Gastrointestinal: Nausea, Diarrhea Physical Examination - Physical Exam General: Alert, In no apparent distress, Oriented x3 HEENT: Atraumatic, PERRLA, EOMI Neck: Supple, 2+ carotid pulse no bruit, No LAD Respiratory: Clear to auscultation bilaterally, Normal air movement Cardiovascular: Normal S1 S2, Other (tachycardia, rate ~115) Gastrointestinal: Normal bowel sounds, No tenderness Musculoskeletal: No tenderness Integumentary: No rashes Neurological: Normal gait, Normal speech, Normal strength at 5/5 x4 extr, Normal tone, Normal affect Lymphatics: No axilla or inguinal lymphadenopathy - Studies Laboratory Data (last 24 hrs) 04/09/24 04/09/24 11:20 11:20 WBC 4.60 Hgb 11.4 L Hct 34.4 L Plt Count 98 L Sodium 135 L Potassium 3.7 BUN 28 H Creatinine 1.25 Glucose 113 H Total Bilirubin 0.3 AST 26 ALT 20 Alkaline Phosphatase 62 Lipase 14 Assessment and Plan - Plan Assessment: Colitis/Diarrhea Bandemia Lung cancer on chemo/radiation-last chemo 04/04 Hypertension BPH Plan: Colitis/Diarrhea Bandemia Lung cancer on chemo/radiation-last chemo 04/04 Thrombocytopenia Has had 4 days of diarrhea Still tachycardic despite IV fluids/antibiotics Continue IV fluids, antibiotics overnight Obtain C. difficile, stool specimens Repeat labs in the morning Hypertension BPH Continue home medications DVT PPX: SCDs Code status:DNR Discharge Plan: Home Plan to discharge in: 72 Hours - Advance Directives Does patient have a Living Will: No Does patient have a Durable POA for Healthcare: No - Code Status/Comfort Care Code Status Assessed: Yes (DNR) Critical Care: No Time Spent Managing Pts Care (In Minutes): 64
[2024-04-09] MEDS ORDERED: AMLODIPINE 10 MG TAB ONE (16:04)
[2024-04-09] MEDS: METRONIDAZOLE 500mg IVPB 500 MG/100 ML BAG IV SCH (17:00)
[2024-04-09] MEDS: NA CHLORIDE 0.9% 1,000 ML IV SCH (17:00)
[2024-04-09] MEDS: CIPROFLOXACIN 400mg IV 400 MG/200 ML BAG IV SCH (20:21)
[2024-04-09] MEDS: ATORVASTATIN 20 MG TAB PO SCH (20:21)
[2024-04-09] MEDS: TAMSULOSIN 0.4 MG SR CAP PO SCH (20:22)
[2024-04-09] MEDS: LACTOBACILLUS/ACIDOPHILUS TAB PO SCH (20:22)
[2024-04-10 04:48] LABS: Absolute Lymphocytes (CBC) 0.1 K/uL (0.7-4.9); Absolute Monocytes 0.2 K/uL (0.1-1.3); Absolute Neutrophil 4.1 K/uL (1.8-8.0); Basophils % 0.8 % (0-1.3); Eosinophils % 0.1 % (0-4.4); Hematocrit 32.6 % (39.6-49.0); Hemoglobin 11.2 g/dL (13.6-17.9); Lymphocytes % 2.7 % (15.3-44.8); MCH 33.3 pg (27.0-35.0); MCHC 34.3 g/dL (32.0-36.0); MCV 96.9 fL (80-100); MPV 8.9 fL (7.6-11.3); Monocytes % 4.8 % (3.3-12.3); Neutrophils % 91.6 % (41.7-73.7); Platelets 96 thou/uL (152-406); RBC Red Blood Cell Count 3.37 M/uL (4.33-5.43); Red Cell Distribution Width 15.5 % (12.1-15.2)
[2024-04-10 05:13] LABS: Anion Gap 10.4 mEq/L (5.0-15.0); Magnesium 1.5 mg/dL (1.6-2.4); Phosphorus 2.6 mg/dL (2.5-4.9); Potassium 4.4 mEq/L (3.5-5.1); Thyroid Stimulating Hormone 0.253 uIU/mL (0.358-3.740)
[2024-04-10] MEDS: HYDRALAZINE HCL 20 MG/ML VIAL IV PRN (05:41)
[2024-04-10] MEDS: MORPHINE 2 MG/ML SYR IV PRN (07:55)
[2024-04-10] MEDS: AMLODIPINE 10 MG TAB PO SCH (07:59)
--- NOTE | 2024-04-10 09:26 | P.PN ---
Date of Service: 04/10/24 Subjective: Still having diarrhea Denies abdominal pain No acute events overnight Does not meet criteria for CT testing at this time ROS: 10 point ROS as noted above, otherwise negative Physical exam GEN: Alert, oriented, NAD HEENT: Normal conjunctiva, sclera anicteric CV: Regular rate and rhythm, no edema Pulm: Tachypnea, grunting-patient denies feeling short of breath over baseline, on nasal cannula ABD: Soft, nontender, nondistended MSK: No joint tenderness Integumentary: No rashes Neuro: Normal speech, normal affect Vitals reviewed Assessment: Colitis/Diarrhea Bandemia Lung cancer on chemo/radiation-last chemo 04/04 Hypertension BPH Plan: Colitis/Diarrhea Bandemia Lung cancer on chemo/radiation-last chemo 04/04 Thrombocytopenia Hypophosphatemia Has had 4 days of diarrhea Tachycardia improving Continue IV fluids Stool studies pending Advance diet as tolerated Continue antibiotics Cipro/Flagyl Hypertension BPH Continue home medications DVT PPX: SCDs Code status:DNR Discharge Plan: Home Plan to discharge in: 48 hours Time Spent Managing Pts Care (In Minutes): 35
[2024-04-10] MEDS ORDERED: ALBUTEROL 2.5 MG/3 ML NEB SOL NEB PRN (12:38)
[2024-04-10] MEDS: IPRATROPIUM BROM 0.5MG/2.5ML NEB SCH (14:22)
[2024-04-10] MEDS: IPRATROPIUM BROM 0.5MG/2.5ML ONE (20:55)
--- NOTE | 2024-04-10 21:52 | P.PN ---
Date of Service: 04/10/24 I was called to see the patient by the nurse has been complaining of some dyspnea has underlying COPD complaining of some shortness of breath on examination is alert oriented responsive a little tachypnea plan to continue with breathing treatments have ordered some Solu-Medrol chest x-ray continuous pulse ox his vital signs are stable chest diminished air entry currently 98%
[2024-04-10] MEDS: METHYLPREDNISOLONE 40 MG INJ IV SCH (22:21)
[2024-04-11] MEDS: IPRATROPIUM BROM 0.5MG/2.5ML ONE ×2 (02:46→19:44)
[2024-04-11 03:27] LABS: Absolute Lymphocytes (CBC) 0.1 K/uL (0.7-4.9); Absolute Monocytes 0.1 K/uL (0.1-1.3); Absolute Neutrophil 3.5 K/uL (1.8-8.0); Basophils % 0.2 % (0-1.3); Hematocrit 30.4 % (39.6-49.0); Hemoglobin 10.2 g/dL (13.6-17.9); Lymphocytes % 1.5 % (15.3-44.8); MCH 32.6 pg (27.0-35.0); MCHC 33.6 g/dL (32.0-36.0); MCV 96.8 fL (80-100); MPV 9.4 fL (7.6-11.3); Nucleated Red Blood Cells % 0.1 % (0-0); Platelets 90 thou/uL (152-406); RBC Red Blood Cell Count 3.14 M/uL (4.33-5.43); Red Cell Distribution Width 15.7 % (12.1-15.2)
[2024-04-11 03:31] LABS: Neutrophils % 95.3 % (41.7-73.7)
[2024-04-11 03:42] LABS: Anion Gap 9.3 mEq/L (5.0-15.0); Magnesium 1.7 mg/dL (1.6-2.4); Phosphorus 2.5 mg/dL (2.5-4.9); Potassium 4.3 mEq/L (3.5-5.1)
[2024-04-11] MEDS: Magnesium Sulfate 2gm IVPB 2 G/50 ML BAG IV ONE (04:33)
--- NOTE | 2024-04-11 07:46 | RAD REPORT ---
EXAMINATION: ONE VIEW CHEST XR CLINICAL INDICATION: dyspnea TECHNIQUE: Frontal chest projection is submitted. Examination is limited by patient positioning and t echnique. COMPARISON: No prior exam. FINDINGS: There is a 2 cm masslike lesion in the right midlung. Mild linear atelectasis is present in both lung bases. The heart is mildly prominent in size. No displaced fractures identified. IMPRESSION: 2 cm masslike lesion in the right midlung. Recommend follow-up CT chest assessment.
[2024-04-11] MEDS: SODIUM PHOSPHATE 15 MM in NA CHLORIDE 0.9% 250 ML IV ONE (07:50)
--- NOTE | 2024-04-11 08:43 | P.PN ---
Date of Service: 04/11/24 Subjective: was dyspneic, tachypneic overnight Was moved to the ICU and started on BiPAP Tolerating BiPAP well, symptoms improved ROS: 10 point ROS as noted above, otherwise negative Physical exam GEN: Alert, oriented, NAD HEENT: Normal conjunctiva, sclera anicteric CV: Regular rate and rhythm, no edema Pulm: On BiPAP, tolerating well respiratory status improved ABD: Soft, nontender, nondistended MSK: No joint tenderness Integumentary: No rashes Neuro: Normal speech, normal affect Vitals reviewed Assessment: Colitis/Diarrhea Bandemia COPD with exacerbationon home O2 Lung cancer on chemo/radiation-last chemo 04/04 Hypertension BPH Plan: Colitis/Diarrhea Bandemia Lung cancer on chemo/radiation-last chemo 04/04 Thrombocytopenia Hypophosphatemia Has had 4 days of diarrhea Tachycardia improving Continue IV fluids Stool studies pending-did not meet criteria for testing for C. difficile Advance diet as tolerated Continue antibiotics Cipro/Flagyl COPD with exacerbationon home O2 As needed nebulizer treatments, steroids Wean NIV/BiPAP as tolerated Continue supplemental oxygen as needed Hypertension BPH Continue home medications DVT PPX: SCDs Code status:DNR Discharge Plan: Home Plan to discharge in: 48 hours Time Spent Managing Pts Care (In Minutes): 35
--- NOTE | 2024-04-11 21:15 | RAD REPORT ---
EXAMINATION: CTA CHEST PE CLINICAL INDICATION: Male, 78 years old. Follow-up right lung mass TECHNIQUE: This examination was performed according to an angiographic protocol with 3D post-processi ng. This involves 3D reconstructions, MIPs, volume rendered images and/or shaded surface rendering. One or more of the following dose reduction techniques were used: Automated exposure control, adjustm ent of the mA and/or kV according to patient size, and/or iterative reconstruction. Unless otherwise specified, incidental findings do not require dedicated imaging follow-up. [id number]. COMPARISON: Same day chest radiograph. FINDINGS: LOWER NECK: Visualized thyroid gland and soft tissues are normal. LUNGS AND AIRWAYS: Airways are clear. No evidence of airspace or interstitial process.Motion artifact limits evaluation for pulmonary nodule detection. Solid lobular right upper lobe lesion measuring 3 cm. PLEURA: No pleural effusion. No pneumothorax. Hemidiaphragms are normally positioned. MEDIASTINUM AND LYMPH NODES: No mediastinal mass or fluid collection. Normal size mediastinal, hilar, and axillary lymph nodes. Diffuse esophageal wall thickening. THORACIC AORTA: No thoracic aortic aneurysm. Atherosclerotic changes are present. PULMONARY ARTERIES: Caliber is within normal limits. No pulmonary emboli identified to the level of t he segmental pulmonary arteries. The subsegmental pulmonary arteries cannot be adequately assessed due to motion/suboptimal contrast opacification. HEART: Normal heart size. Coronary arterial calcifications are present.Small pericardial effusion. OSSEOUS STRUCTURES AND CHEST WALL: Multilevel degenerative changes. No acute fracture. UPPER ABDOMEN: No acute abnormalities.Benign appearing low density liver lesions. IMPRESSION: No evidence of pulmonary emboli to the segmental level. 3 cm right upper lobe lung lesion highly concerning for primary bronchogenic carcinoma. No hilar or m ediastinal lymphadenopathy identified. This would be amenable to percutaneous biopsy. Diffuse esophageal wall thickening likely reflecting esophagitis.
[2024-04-12 06:09] LABS: Absolute Monocytes 0.4 K/uL (0.1-1.3); Absolute Neutrophil 4.6 K/uL (1.8-8.0); Basophils % 0.2 % (0-1.3); Hematocrit 29.8 % (39.6-49.0); Lymphocytes % 0.8 % (15.3-44.8); MCH 32.7 pg (27.0-35.0); MCHC 33.6 g/dL (32.0-36.0); MCV 97.4 fL (80-100); MPV 8.9 fL (7.6-11.3); Monocytes % 7.4 % (3.3-12.3); Neutrophils % 91.6 % (41.7-73.7); Nucleated Red Blood Cells % 0.1 % (0-0); Platelets 99 thou/uL (152-406); RBC Red Blood Cell Count 3.06 M/uL (4.33-5.43); Red Cell Distribution Width 15.5 % (12.1-15.2)
[2024-04-12 06:17] LABS: Magnesium 2.3 mg/dL (1.6-2.4); Phosphorus 3.9 mg/dL (2.5-4.9)
[2024-04-12] MEDS ORDERED: METHYLPREDNISOLONE 125 MG INJ IV SCH (06:38)
[2024-04-12] MEDS: NA CHLORIDE 0.9% 1,000 ML IV SCH (08:05)
[2024-04-12] MEDS: FUROSEMIDE 40 MG/4 ML VIAL IV ONE (09:25)
--- NOTE | 2024-04-12 10:02 | RAD REPORT ---
Procedure: Chest Single View HISTORY: Cough COMPARISON: April 11, 2024 FINDINGS: The lungs appear clear of acute infiltrate. 3 cm right upper lobe nodule unchanged. No significant pleural effusion noted. The heart is normal size. IMPRESSION: 3 cm right lung nodule unchanged Lungs appear clear of acute infiltrate
[2024-04-12 10:07] LABS: Troponin High Sensitivity 57.8 pg/mL (<58.9)
[2024-04-12] MEDS: METOPROLOL TARTRATE 5 MG/5 ML INJ IV STA (10:36)
[2024-04-12 11:04] LABS: Arterial Blood Carboxyhemoglob 0.5 % (0-1.5); Blood Gas Oxyhemoglobin 83.9 % (94-97); Blood Gas THB 11.1 g/dl (12-18); Blood O2 Saturation 86.2 % (92-98.5)
[2024-04-12] MEDS: ONDANSETRON 4 MG/2 ML VIAL IV PRN (11:25)
--- NOTE | 2024-04-12 12:56 | P.CNS ---
Date of Consult: 04/12/24 Chief Complaint: Colitis History of Present Illness: Patient with PMH of COPD on home oxygen, presented with colitis and COPD exacerbation, cardiology was consulted for questionable atrial fibrillation, patient is on BiPAP at time of interview and very short of breath so talked to his family, denies any history of cardiac issues. Allergies No Known Allergies Allergy (Unverified 04/09/24 16:27) Home medications list reviewed: Yes Home Medications: Amlodipine [Norvasc] 10 mg PO DAILY 04/09/24 Atorvastatin Calcium [Lipitor] 40 mg PO BEDTIME 04/09/24 Budesonide/Glycopyr/Formoterol [Breztri Aerosphere Inhaler] 10.7 gm IH DAILY 04/09/24 Tamsulosin [Flomax] 0.4 mg PO BEDTIME 04/09/24 Varenicline Tartrate [Chantix] 2 mg PO DAILY 04/09/24 - Past Medical/Surgical History -: COPD on O2 -: Lung cancer -: Hypertension -: BPH -: Stomach cancer-distant past -: Hernia repair Psychosocial/ Personal History: Lives at home with family - Social History Smoking Status: Unknown if ever smoked Alcohol use: Yes CD- Drugs: No Caffeine use: Yes Place of Residence: Home Review of Systems 10-point ROS is otherwise unremarkable Physical Examination Temp Pulse Resp BP Pulse Ox 97.7 F 84 17 130/82 100 04/12/24 12:00 04/12/24 12:00 04/12/24 12:00 04/12/24 12:00 04/12/24 12:00 General: Mild distress HEENT: Atraumatic, PERRLA, Mucous membr. moist/pink, EOMI, Sclerae nonicteric Neck: Supple, 2+ carotid pulse no bruit, No LAD, Without JVD or thyroid abnormality Respiratory: Clear to auscultation bilaterally, Normal air movement Cardiovascular: Regular rate/rhythm, Normal S1 S2 Gastrointestinal: Normal bowel sounds, No tenderness Musculoskeletal: No tenderness Integumentary: No rashes Neurological: Normal gait, Normal speech, Normal tone, Normal affect Lymphatics: No axilla or inguinal lymphadenopathy - Problems (1) Atrial fibrillation Current Visit: Yes Status: Acute Plan: Patient Tele shows he is in sinus rhyth, EKG was reviewed, hard to tell if it is AF vs sinus tachycardia with frequent PACs due to significant artifacts - start lopressor 25 mg po BID - Continue to monitor on telemetry. (2) Hypercapnic respiratory failure Current Visit: Yes Status: Acute Plan: Patient echo was reviewed and shows normal systolic and diastolic function with no signs of volume overload with normal size left atrium continue BiPAP and repeat ABG in 4 hours. pulmonary team is following.
--- NOTE | 2024-04-12 13:58 | ECHO ---
HEIGHT: 5 ft 7 in WEIGHT: 177 lb 6.08 oz DATE OF STUDY: 04/12/[address]: Kortney Zapata 2-DIMENSIONAL: YES M.MODE: YES DOPPLER: YES COLOR FLOW: YES TDS: NO PORTABLE: YES DEFINITY: NO BUBBLE STUDY: NO DIAGNOSIS: EVALUATE EJECTION FRACTION CARDIAC HISTORY: CATHERIZATION: SURGERY: PROSTHETIC VALVE: PACEMAKER: MEASUREMENTS (cm) DIASTOLIC (NORMALS) SYSTOLIC (NORMALS) IVSd 0.8 (0.6-1.2) LA Diam 2.9 (1.9-4.0) LVEF 60-65% LVIDd 4.5 (3.5-5.7) LVIDs 2.9 (2.0-3.5) %FS 36% LVPWd 1.0 (0.6-1.2) Ao Diam 2.9 (2.0-3.7) 2 DIMENSIONAL ASSESSMENT: RIGHT ATRIUM: MILDLY DILATED LEFT ATRIUM: NORMAL RIGHT VENTRICLE: NORMAL LEFT VENTRICLE: NORMAL TRICUSPID VALVE: TRACE OF TRICUSPID REGURGITATION MITRAL VALVE: NORMAL PULMONIC VALVE: NORMAL AORTIC VALVE: NORMAL PERICARDIAL EFFUSION: NONE AORTIC ROOT: NORMAL LEFT VENTRICULAR WALL MOTION: NORMAL. DOPPLER/COLOR FLOW: NORMAL. COMMENTS: 1. NORMAL LEFT VENTRICULAR SYSTOLIC FUNCTION, EJECTION FRACTION 60-65%, NORMAL WALL MOTION. 2. NORMAL DIASTOLIC FUNCTION. 3. NORMAL FILLING PRESSURE (RIGHT ATRIAL PRESSURE 0-5mmHg) 4. MILD PULMONARY HYPERTENSION (RIGHT VENTRICULAR SYSTOLIC PRESSURE 35-40mmHg). TECHNOLOGIST: ANGUS WALTERS
--- NOTE | 2024-04-12 13:59 | P.PN ---
Subjective Date of Service: 04/12/24 Chief Complaint: Colitis Admitted for colitis/diarrhea, history of lung cancer, reported shortness of breath, BiPAP overnight, ABG ordered Review of Systems 10-point ROS is otherwise unremarkable Physical Examination - Vital Signs Temperature: 97.7 F Blood Pressure: 116/64 Pulse: 82 Respirations: 17 Pulse Ox (%): 99 - Physical Exam General: Alert, Oriented x3, Mild distress HEENT: Atraumatic, Normocephalic Neck: Supple, 2+ carotid pulse no bruit Respiratory: Diminished, Other (Abdominal breathing, BiPAP initiated) Cardiovascular: No edema, Normal pulses, Regular rate/rhythm Gastrointestinal: Normal bowel sounds, Soft and benign, Other (Diarrhea) Musculoskeletal: No clubbing, No swelling Integumentary: No breakdown, No significant lesion Neurological: Normal speech, Normal strength at 5/5 x4 extr, Sensation intact Assessment And Plan - Plan Assessment: Acute hypoxic hypercarbic respiratory failure secondary to COPD/history of lung cancer Stage IV lung CVA with chemotherapy, radiation Colitis/Diarrhea Acute kidney injury secondary to diarrhea Bandemia COPD with exacerbationon home O2 Lung cancer on chemo/radiation-last chemo 04/04 Hypertension BPH Plan: Acute hypoxic hypercarbic respiratory failure secondary to COPD/history of lung cancer Stage IV lung CA with chemo, radiation Colitis/Diarrhea Bandemia Lung cancer on chemo/radiation-last chemo 04/04 Thrombocytopenia Hypophosphatemia Has had 4 days of diarrhea Tachycardia improving Continue IV fluids Stool studies pending-did not meet criteria for testing for C. difficile Advance diet as tolerated Continue antibiotics Cipro/Flagyl Stool cultures unremarkable Acute hypoxic respiratory failure secondary to COPD/lung cancer COPD with exacerbationon home O2 As needed nebulizer treatments, steroids Wean NIV/BiPAP as tolerated Continue supplemental oxygen as needed ABG shows hypoxia, hypercarbia, will repeat ABG in 4 hours post initiation of BiPAP Acute kidney injury, likely secondary to diarrhea Gentle IV fluids Hypertension BPH Continue home medications DVT PPX: SCDs Code status:DNR Discharge Plan: Home Time Spent Managing Pts Care (In Minutes): 65 Discharge Plan: Home Critical Care: Yes Time Spent Managing PTS Care (In Minutes): 65
[2024-04-12] MEDS: METOPROLOL TAR 25 MG TAB PO SCH (16:48)
[2024-04-12 17:00] LABS: Blood O2 Saturation 96.9 % (92-98.5)
[2024-04-12 17:01] LABS: Arterial Blood Carboxyhemoglob 0.5 % (0-1.5); Blood Gas Oxyhemoglobin 94.4 % (94-97); Blood Gas THB 10.4 g/dl (12-18)
[2024-04-12] MEDS: LORazepam 2 MG/ML VIAL IV ONE (22:37)
[2024-04-13 04:11] LABS: Blood O2 Saturation 97.3 % (92-98.5)
[2024-04-13 04:12] LABS: Arterial Blood Carboxyhemoglob 0.5 % (0-1.5); Blood Gas Oxyhemoglobin 95.5 % (94-97); Blood Gas THB 9.8 g/dl (12-18)
[2024-04-13 05:52] LABS: Absolute Monocytes 0.4 K/uL (0.1-1.3); Basophils % 0.2 % (0-1.3); Hematocrit 29.7 % (39.6-49.0); Lymphocytes % 0.7 % (15.3-44.8); MCH 32.8 pg (27.0-35.0); MCHC 33.6 g/dL (32.0-36.0); MCV 97.7 fL (80-100); MPV 9.6 fL (7.6-11.3); Monocytes % 5.5 % (3.3-12.3); Neutrophils % 93.6 % (41.7-73.7); Nucleated Red Blood Cells % 0.2 % (0-0); Platelets 105 thou/uL (152-406); RBC Red Blood Cell Count 3.04 M/uL (4.33-5.43); Red Cell Distribution Width 15.7 % (12.1-15.2)
[2024-04-13 06:12] LABS: Anion Gap 8.3 mEq/L (5.0-15.0); Magnesium 2.3 mg/dL (1.6-2.4); Potassium 4.3 mEq/L (3.5-5.1)
[2024-04-13] MEDS: DEXMEDETOMIDINE HCL 200 MCG in NA CHLORIDE 0.9% 98 ML IV SCH (07:44)
[2024-04-13] MEDS ORDERED: GLUCAGON 1 MG/VIAL IM PRN (07:53)
[2024-04-13] MEDS ORDERED: D10W 125 ML IV PRN (07:53)
[2024-04-13] MEDS ORDERED: SODIUM CHLORIDE 0.9% 10ML INJ IV PRN (07:57)
[2024-04-13] MEDS: D5 0.45 NS 1,000 ML IV SCH ×2 (08:29→11:00)
[2024-04-13] MEDS: PANTOPRAZOLE 40 MG INJ IVP SCH (08:30)
--- NOTE | 2024-04-13 10:15 | P.CNS ---
Date of Consult: 04/13/24 Reason for Consult: Respiratory failure Chief Complaint: Respiratory failure History of Present Illness: Patient is 78 years of age he has a history of lung cancer right upper lobe lung mass treated with chemoradiation admitted with diarrhea condition deteriorated on the floor developed progressive dyspnea was transferred to the ICU is currently on BiPAP and Precedex has hypoxic hypercapnic patient was admitted with colitis and diarrhea so far cultures are negative Allergies No Known Allergies Allergy (Unverified 04/09/24 16:27) Home Medications: Amlodipine [Norvasc] 10 mg PO DAILY 04/09/24 Atorvastatin Calcium [Lipitor] 40 mg PO BEDTIME 04/09/24 Budesonide/Glycopyr/Formoterol [Breztri Aerosphere Inhaler] 10.7 gm IH DAILY 04/09/24 Tamsulosin [Flomax] 0.4 mg PO BEDTIME 04/09/24 Varenicline Tartrate [Chantix] 2 mg PO DAILY 04/09/24 - Past Medical/Surgical History -: COPD on O2 -: Lung cancer -: Hypertension -: BPH -: Stomach cancer-distant past -: Hernia repair Psychosocial/ Personal History: Lives at home with family - Social History Smoking Status: Unknown if ever smoked Alcohol use: Yes CD- Drugs: No Caffeine use: Yes Place of Residence: Home Review of Systems is unable to be obtained Physical Examination Temp Pulse Resp BP Pulse Ox 97.2 F 67 17 120/60 90 L 04/13/24 08:00 04/13/24 09:00 04/13/24 09:00 04/13/24 09:00 04/13/24 09:00 General: Unresponsive Respiratory: Clear to auscultation bilaterally, Diminished Cardiovascular: No edema, Regular rate/rhythm, Normal S1 S2 Gastrointestinal: Normal bowel sounds, Soft and benign Musculoskeletal: No clubbing, No swelling - Problems (1) Hypercapnic respiratory failure Current Visit: Yes Status: Acute Plan: Patient is 78 years of age admitted with colitis and diarrhea he then developed progressive dyspnea was transferred to the ICU on BiPAP and Precedex drip patient was hypercapnic on the floor history of COPD on oxygen is chronically hypercapnic we will plan to wean off Precedex change O2 nasal cannula titrate sat to 90% CT scan shows severe emphysematous change Qualifiers: Chronicity: acute on chronic Qualified Code(s): J96.22 - Acute and chronic respiratory failure with hypercapnia
[2024-04-13 10:42] LABS: Specific Gravity 1.025 (1.005-1.030); Sqamous Epithelial None Seen /HPF (None Seen); Urine Bacteria None Seen /HPF (<20); Urine Bilirubin NEGATIVE (Negative); Urine Blood 1+ (Negative); Urine Clarity Turbid (Clear); Urine Color Light-Yellow (Yellow); Urine Culture Reflex Order NOT NEEDED; Urine Glucose NEGATIVE (Negative); Urine Ketones NEGATIVE (Negative); Urine Microscopic Reflex YN ORDER UMIC; Urine Nitrite NEGATIVE (Negative); Urine Protein 1+ (Negative); Urine RBC <5 /HPF (None Seen); Urine Urobilinogen Normal (Normal); Urine WBC <5 /HPF (<5); Urine Yeast (Budding) Trace /HPF (None Seen); Urine pH 5.5 (5.0-7.0)
--- NOTE | 2024-04-13 11:13 | P.PN ---
Subjective Date of Service: 04/13/24 Chief Complaint: Respiratory failure BiPAP for hypercarbic respiratory failure, on Precedex for anxiety, plan to wean Precedex and BiPAP today. Review of Systems 10-point ROS is otherwise unremarkable Physical Examination - Vital Signs Temperature: 97.2 F Blood Pressure: 120/64 Pulse: 60 Respirations: 20 Pulse Ox (%): 95 - Physical Exam General: Alert, In no apparent distress, Other (Resting with eyes closed, responds to verbal) HEENT: Atraumatic, Normocephalic Respiratory: Diminished, Other (On BiPAP,) Cardiovascular: Normal pulses, Regular rate/rhythm, Normal S1 S2 Capillary refill: <2 Seconds Gastrointestinal: Normal bowel sounds, Soft and benign Musculoskeletal: No clubbing, No swelling Integumentary: No breakdown, No significant lesion Neurological: Normal speech, Normal strength at 5/5 x4 extr, Normal tone Assessment And Plan - Plan Assessment: Acute hypoxic hypercarbic respiratory failure secondary to COPD/history of lung cancer Stage IV lung CVA with chemotherapy, radiation Colitis/Diarrhea Acute kidney injury secondary to diarrhea Bandemia COPD with exacerbationon home O2 Lung cancer on chemo/radiation-last chemo 04/04 Hypertension BPH Plan: Acute hypoxic hypercarbic respiratory failure secondary to COPD/history of lung cancer Stage IV lung CA with chemo, radiation Colitis/Diarrhea Bandemia Lung cancer on chemo/radiation-last chemo 04/04 Thrombocytopenia Hypophosphatemia Has had 4 days of diarrhea Tachycardia improving Continue IV fluids Stool studies pending-did not meet criteria for testing for C. difficile Advance diet as tolerated Continue antibiotics Cipro/Flagyl Stool cultures unremarkable ABGs, monitor CO2, Acute hypoxic respiratory failure secondary to COPD/lung cancer COPD with exacerbationon home O2 As needed nebulizer treatments, steroids Wean NIV/BiPAP as tolerated Continue supplemental oxygen as needed ABG shows hypoxia, hypercarbia, will repeat ABG in 4 hours post initiation of BiPAP Acute kidney injury, likely secondary to diarrhea Gentle IV fluids Nephrology to consult, Monitor kidney function, BUN/creatinine Hypertension BPH Continue home medications DVT PPX: SCDs Code status:DNR Discharge Plan: Home Time Spent Managing Pts Care (In Minutes): 45
--- NOTE | 2024-04-13 11:27 | RAD REPORT ---
EXAMINATION: ONE VIEW CHEST XR CLINICAL INDICATION: follow up/sob TECHNIQUE: Frontal chest projection is submitted. Examination is limited by patient positioning and t echnique. COMPARISON: 04/12/2024 FINDINGS: 2-3 cm right midlung mass lesion is unchanged. The lungs are otherwise emphysematous but clear. The h eart is upper limit of normal in size. No displaced fractures identified. IMPRESSION: Stable chest since yesterday's study.
[2024-04-13] MEDS: INSULIN REGULAR (HUMAN) 100 UNIT/ML SQ SCH (11:30)
[2024-04-13] MEDS: DEXMEDETOMIDINE HCL 1,000 MCG in NA CHLORIDE 0.9% 490 ML IV SCH (12:18)
[2024-04-13 12:21] LABS: Arterial Blood Carboxyhemoglob 0.6 % (0-1.5); Blood Gas Oxyhemoglobin 90.1 % (94-97); Blood Gas THB 9.9 g/dl (12-18); Blood O2 Saturation 91.8 % (92-98.5)
[2024-04-13] MEDS: NA CHLORIDE 0.9% 1,000 ML ONE (13:51)
[2024-04-13] MEDS: propofoL 200 MG/20 ML VIAL IV ONE (13:51)
[2024-04-13] MEDS: GLYCOPYRROLATE 0.2 MG/ML SYR IV ONE (14:33)
[2024-04-13] MEDS: EPHEDRINE SULF 50 MG/ML VIAL IV ONE (14:43)
[2024-04-13] MEDS: LORazepam 2 MG/ML VIAL IV PRN (14:45)
[2024-04-13] MEDS ORDERED: NOREPINEPHRINE 4 MG in D5W 250 ML IV SCH (15:00)
--- NOTE | 2024-04-13 15:11 | RAD REPORT ---
EXAMINATION: ONE VIEW CHEST XR CLINICAL INDICATION: ETT placement TECHNIQUE: Frontal chest projection is submitted. Examination is limited by patient positioning and t echnique. COMPARISON: 04/13/2024, 04/12/2024 FINDINGS: Tip of the endotracheal tube is above the giles. It is approximately 1 cm above the level of the sup erior aortic arch. Enteric tube descends into the stomach.
--- NOTE | 2024-04-13 15:12 | RAD REPORT ---
EXAM: XR of the abdomen HISTORY: Abdominal pain Placement of NGT/OGT. Post Insertion. COMPARISON: None FINDINGS: Tip of the enteric tube is entering the stomach.
[2024-04-13] MEDS: FENTANYL CITR 100 MCG/2 ML IV PRN (16:33)
[2024-04-13] MEDS: HEPARIN 5000 UNIT/ML 1 ML VIAL SQ SCH (16:36)
[2024-04-13 16:44] LABS: Arterial Blood Carboxyhemoglob 0.6 % (0-1.5); Blood Gas Oxyhemoglobin 95.4 % (94-97); Blood Gas THB 9.3 g/dl (12-18); Blood O2 Saturation 97.2 % (92-98.5)
[2024-04-13] MEDS: METOPROLOL TAR 25 MG TAB PO SCH (17:43)
[2024-04-13] MEDS: Mupirocin NASAL 2 APPL/1 GM TUBE NAS SCH (20:43)
[2024-04-14] MEDS: INSULIN REGULAR (HUMAN) 100 UNIT/ML SQ SCH (00:26)
[2024-04-14 05:23] LABS: Absolute Monocytes 0.2 K/uL (0.1-1.3); Absolute Neutrophil 2.7 K/uL (1.8-8.0); Basophils % 0.1 % (0-1.3); Hematocrit 31.4 % (39.6-49.0); Hemoglobin 10.7 g/dL (13.6-17.9); Lymphocytes % 1.2 % (15.3-44.8); MCH 32.8 pg (27.0-35.0); MCHC 34.1 g/dL (32.0-36.0); MCV 96.4 fL (80-100); MPV 9.1 fL (7.6-11.3); Monocytes % 7.1 % (3.3-12.3); Neutrophils % 91.6 % (41.7-73.7); Nucleated Red Blood Cells % 0.3 % (0-0); Platelets 65 thou/uL (152-406); RBC Red Blood Cell Count 3.25 M/uL (4.33-5.43); Red Cell Distribution Width 15.8 % (12.1-15.2)
[2024-04-14 05:45] LABS: Anion Gap 8.9 mEq/L (5.0-15.0); Magnesium 2.3 mg/dL (1.6-2.4); Phosphorus 2.1 mg/dL (2.5-4.9); Potassium 3.9 mEq/L (3.5-5.1)
[2024-04-14] MEDS: POTASSIUM PHOS IN 0.9 % NACL 15 MMOL/250 ML BAG IV ONE (06:08)
[2024-04-14 06:55] LABS: Blood Morphology Comment NOTED (NOT SEEN); Platelet Estimate DECR; White Blood Cell Scan OK (OK)
--- NOTE | 2024-04-14 07:32 | RAD REPORT ---
Procedure: Chest Single View HISTORY: Endotracheal tube placement FINDINGS: Tip of an endotracheal tube lies 1.5 cm above the top of the aortic arch.
--- NOTE | 2024-04-14 09:04 | P.PN ---
Date of Service: 04/14/24 Subjective: Intubated, sedated OG, patricio in place No other acute events overnight ROS: 10 point ROS as noted above, otherwise negative Physical exam GEN: Intubated, sedated HEENT: Normal conjunctiva, sclera anicteric, OG in place CV: Regular rate and rhythm, no edema Pulm: On Vent, tolerating with sedation ABD: Soft, nontender, nondistended, patricio in place MSK: No joint tenderness Integumentary: No rashes Neuro: Normal speech, normal affect Vitals reviewed Assessment: Hypoxic/hypercapnic respiratory failure secondary to severe COPD with exacerbation/lung cancer Lung cancer on chemo/radiation-last chemo 04/04 Colitis/Diarrhea Bandemia Hypertension BPH Plan: Hypoxic/hypercapnic respiratory failure secondary to severe COPD with exacerbation/lung cancer Lung cancer on chemo/radiation-last chemo 04/04 Intubated 04/13 for hypercapnic respiratory failure Required intubation for hypercapnic respiratory failure despite use of BiPAP as patient was not tolerating wearing BiPAP This was discussed at length with at bedside yesterday who made the decision to reverse the DNR and trial intubation/vent ABGs improving, pulmonology consulted and following Continue treatment for COPD including steroids, nebulizer treatments, wean vent settings as tolerated Per chart review patient was stage IV prostate cancer Progressive decline in the last few months Colitis/Diarrhea Bandemia Thrombocytopenia Hypophosphatemia Has had 4 days of diarrhea Tachycardia improving Continue IV fluids Stool studies pending-did not meet criteria for testing for C. difficile Hypertension BPH Continue home medications DVT PPX: SCDs Code status:DNR Discharge Plan: Home Plan to discharge in: 48 hours Time Spent Managing Pts Care (In Minutes): 35
[2024-04-14] MEDS ORDERED: ATROPINE SULFATE 1 MG/ML INJ IV ONE (09:41)
[2024-04-14] MEDS ORDERED: SUCCINYLCHOLINE 20 MG/ML (10 ML) IV ONE (09:41)
--- NOTE | 2024-04-14 10:35 | P.PN ---
Subjective Date of Service: 04/14/24 Chief Complaint: Respiratory failure Subjective: New changes (Patient is intubated) Review of Systems 10-point ROS is otherwise unremarkable Physical Examination - Vital Signs Temperature: 97 F Blood Pressure: 134/87 Pulse: 53 Respirations: 18 Pulse Ox (%): 99 - Physical Exam General: Alert, In no apparent distress HEENT: Atraumatic, PERRLA, EOMI Neck: Supple, JVD not distended Respiratory: Clear to auscultation bilaterally, Normal air movement Cardiovascular: Regular rate/rhythm, Normal S1 S2 Gastrointestinal: Normal bowel sounds, No tenderness Musculoskeletal: No tenderness Integumentary: No rashes Neurological: Normal speech, Normal tone, Normal affect Lymphatics: No axilla or inguinal lymphadenopathy - Studies Medications List Reviewed: Yes Assessment And Plan - Current Problems (Diagnosis) (1) Atrial fibrillation Current Visit: Yes Status: Acute Plan: Patient Tele shows he is in sinus rhyth, EKG was reviewed, hard to tell if it is AF vs sinus tachycardia with frequent PACs due to significant artifacts - Patient is more bradycardic now after intubation, hold lopressor for now. - Continue to monitor on telemetry. (2) Hypercapnic respiratory failure Current Visit: Yes Status: Acute Plan: Patient echo was reviewed and shows normal systolic and diastolic function with no signs of volume overload with normal size left atrium patient is intubated now. pulmonary team is following. Qualifiers: Chronicity: acute on chronic Qualified Code(s): J96.22 - Acute and chronic respiratory failure with hypercapnia
[2024-04-14 10:38] LABS: Arterial Blood Carboxyhemoglob 0.6 % (0-1.5); Blood Gas Oxyhemoglobin 96.8 % (94-97); Blood Gas THB 10.4 g/dl (12-18); Blood O2 Saturation 98.6 % (92-98.5)
[2024-04-14] MEDS: KCL 20 MEQ/100 mL IVPB 20 MEQ/100 ML BAG IV SCH (10:46)
[2024-04-14] MEDS: D5W 1,000 ML IV SCH (10:46)
--- NOTE | 2024-04-14 11:04 | PN ---
Date of Progress Note: 04/14/2024 Subjective: The patient was admitted to the hospital with COPD exacerbation. The patient had hypercapnic respiratory failure. His respiratory status has been worse yesterday. For that reason, the patient was intubated. Physical Examination: Vital Signs: Blood pressure 134/87, pulse of 53. The patient had good urine output of 1700. Positive of 700. Chest: Faint rales, bilateral. Heart: S1, S2. Systolic murmur. Abdomen: Soft, nontender. Extremities: Trace edema. Neuro: The patient is sedated. Laboratory Data: X-ray showing emphysematous changes. Hemoglobin 10.7. Sodium 143, potassium 3.9, bicarb 24, BUN 58, creatinine 1.4. Calcium 7.8, phosphorus 2.1, magnesium 2.3. Current Medications: The patient is on include atorvastatin, metoprolol, pantoprazole, D5 half normal at 50. Assessment And Plan: 1. Acute kidney injury secondary to contrast-induced nephropathy, stable, on the recovery, nonoliguric, normal volume. I am going to continue current hydration, and we will continue to monitor. 2. Hypernatremia, sodium worsening. I will change IV fluid to plain D5. 3. Hypertension, controlled. We will monitor. 4. Hypokalemia. We will supplement. 5. Respiratory failure secondary to chronic obstructive pulmonary disease exacerbation as by Primary. Spent examining the patient [id number] reviewing data lab and the radiology discussing the case with the patient discussing the case with the pricing/signage team member including hospitalist and nursing staff more than 55 minutes NEY Voice ID: [id number] Report ID: [id number] MAZIN
--- NOTE | 2024-04-14 12:38 | P.PN ---
Subjective Date of Service: 04/14/24 Chief Complaint: Respiratory failure Subjective: Improving (Patient's condition is stable he was intubated yesterday due to refractory hypercarbia despite BiPAP he is currently doing better stable on Precedex) Review of Systems is unable to be obtained Physical Examination - Vital Signs Temperature: 97.8 F Blood Pressure: 127/76 Pulse: 58 Respirations: 18 Pulse Ox (%): 99 - Physical Exam General: Unresponsive Respiratory: Clear to auscultation bilaterally, Diminished Cardiovascular: No edema, Normal S1 S2 Gastrointestinal: Normal bowel sounds, Soft and benign Musculoskeletal: No clubbing, No contractures - Studies Medications List Reviewed: Yes Assessment And Plan - Current Problems (Diagnosis) (1) Hypercapnic respiratory failure Current Visit: Yes Status: Acute Plan: Patient is 78 years of age admitted with hypercarbic respiratory failure he has severe COPD and to been currently treated for right upper lobe adenocarcinoma he is currently stable on a BiPAP blood gases have improved patient is only on FiO2 of 30% chest x-ray reviewed endotracheal tube satisfactory position plan to wean off the ventilator tomorrow labs and chest x-rays reviewed Qualifiers: Chronicity: acute on chronic Qualified Code(s): J96.22 - Acute and chronic respiratory failure with hypercapnia
[2024-04-15 06:07] LABS: Arterial Blood Carboxyhemoglob 0.4 % (0-1.5); Blood Gas Oxyhemoglobin 96.1 % (94-97); Blood Gas THB 11.3 g/dl (12-18); Blood O2 Saturation 97.8 % (92-98.5)
[2024-04-15 06:28] LABS: Hematocrit 31.2 % (39.6-49.0); Hemoglobin 10.7 g/dL (13.6-17.9); MCH 32.7 pg (27.0-35.0); MCHC 34.3 g/dL (32.0-36.0); MCV 95.2 fL (80-100); MPV 9.3 fL (7.6-11.3); Platelets 57 thou/uL (152-406); RBC Red Blood Cell Count 3.28 M/uL (4.33-5.43); Red Cell Distribution Width 15.8 % (12.1-15.2)
[2024-04-15 06:33] LABS: Anion Gap 10.4 mEq/L (5.0-15.0); Magnesium 2.3 mg/dL (1.6-2.4); Phosphorus 3.3 mg/dL (2.5-4.9); Potassium 5.4 mEq/L (3.5-5.1)
[2024-04-15] MEDS: D5W 1,000 ML IV SCH (07:45)
--- NOTE | 2024-04-15 09:28 | P.PN ---
Date of Service: 04/15/24 Subjective: Intubated, sedated OG, patricio in place No other acute events overnight ROS: 10 point ROS as noted above, otherwise negative Physical exam GEN: Intubated, sedated HEENT: Normal conjunctiva, sclera anicteric, OG in place CV: Regular rate and rhythm, no edema Pulm: On Vent, tolerating with sedation ABD: Soft, nontender, nondistended, patricio in place MSK: No joint tenderness Integumentary: No rashes Neuro: Normal speech, normal affect Vitals reviewed Assessment: Hypoxic/hypercapnic respiratory failure secondary to severe COPD with exacerbation/lung cancer Lung cancer on chemo/radiation-last chemo 04/04 Colitis/Diarrhea Bandemia Hypophosphatemia NADINE Hyperkalemia Hypertension BPH Plan: Hypoxic/hypercapnic respiratory failure secondary to severe COPD with exacerbation/lung cancer Lung cancer on chemo/radiation-last chemo 04/04 Intubated 04/13 for hypercapnic respiratory failure Required intubation for hypercapnic respiratory failure despite use of BiPAP as patient was not tolerating wearing BiPAP This was discussed at length with at bedside yesterday who made the decision to reverse the DNR and trial intubation/vent ABGs improving, pulmonology consulted and following-possible wean from vent today Continue treatment for COPD including steroids, nebulizer treatments, wean vent settings as tolerated Per chart review patient was stage IV prostate cancer Progressive decline in the last few months PT when off vent Colitis/Diarrhea Bandemia Thrombocytopenia Hypophosphatemia Has had 4 days of diarrhea Tachycardia improving Continue IV fluids Stool studies pending-did not meet criteria for testing for C. difficile NADINE Hyperkalemia Renal function improving Nephrology following Increased D5 fluids this AM recheck BMP at noon Hypertension BPH Continue home medications DVT PPX: SCDs Code status:Full code Discharge Plan: Home Plan to discharge in: 48 hours Time Spent Managing Pts Care (In Minutes): 35
--- NOTE | 2024-04-15 11:53 | RAD REPORT ---
EXAM: XR Abdomen 1 View (KUB) HISTORY: HS MAIN Abdominal pain COMPARISON: None FINDINGS: Single view of the abdomen shows a nonspecific, nonobstructive bowel gas pattern although r elative paucity of bowel gas somewhat limits evaluation. Urinary bladder catheter in place. No suspicious calcifications are seen. The bones are unremarkable. IMPRESSION: Unremarkable exam
--- NOTE | 2024-04-15 12:49 | EKG ---
Test Date: 2024-04-12 Test Time: 09:55:04 It Application Support Analyst: OSEAS MEASUREMENT RESULTS: Intervals: Rate: 98 CA: 170 QRSD: 130 QT: 376 QTc: 480 [place]: P: 82 CA: 170 QRS: -51 T: 67 INTERPRETIVE STATEMENTS: Sinus rhythm with fusion complexes and premature atrial complexes with aberrant conduction Left axis deviation Right bundle branch block Abnormal ECG Compared to ECG 04/12/2024 09:46:49 Atrial premature complex(es) now present Aberrant conduction of supraventricular beat(s) now present Sinus tachycardia no longer present Ventricular premature complex(es) no longer present Myocardial infarct finding no longer present Electronically Signed On 04-15-24 12:48:09 ELECTRIC PILE DRIVER OPERATOR by Homero De La Vega
--- NOTE | 2024-04-15 12:49 | EKG ---
Test Date: 2024-04-12 Test Time: 11:11:26 Owner Operator Tanker Truck Driver: OSEAS MEASUREMENT RESULTS: Intervals: Rate: 93 CT: QRSD: 116 QT: 446 QTc: 554 [place]: P: CT: QRS: -58 T: 223 INTERPRETIVE STATEMENTS: Atrial fibrillation Left axis deviation Low voltage QRS Incomplete right bundle branch block Inferior infarct, age undetermined Prolonged QT Abnormal ECG Electronically Signed On 04-15-24 12:46:58 HEMMING AND TACKING MACHINE OPERATOR by Homero De La Vega
--- NOTE | 2024-04-15 12:49 | EKG ---
Test Date: 2024-04-12 Test Time: 09:46:49 Mailroom Manager: OSEAS MEASUREMENT RESULTS: Intervals: Rate: 102 AK: 172 QRSD: 124 QT: 362 QTc: 471 [place]: P: 67 AK: 172 QRS: -42 T: 80 INTERPRETIVE STATEMENTS: Sinus tachycardia and premature ventricular complexes or fusion complexes Left axis deviation Right bundle branch block Septal infarct, age undetermined Abnormal ECG Compared to ECG 04/12/2024 09:46:20 Fusion complex(es) now present Ventricular premature complex(es) now present Myocardial infarct finding still present Electronically Signed On 04-15-24 12:48:12 GRAPHICS MANAGER by Homero De La Vega
--- NOTE | 2024-04-15 12:49 | EKG ---
Test Date: 2024-04-12 Test Time: 11:10:55 Automobile Body Repairer: OSEAS MEASUREMENT RESULTS: Intervals: Rate: 96 [place]: QRSD: 124 QT: 686 QTc: 866 [place]: P: [place]: QRS: -50 T: -83 INTERPRETIVE STATEMENTS: Undetermined rhythm Left axis deviation RSR' or QR pattern in V1 suggests right ventricular conduction delay Inferior infarct, age undetermined Abnormal ECG Compared to ECG 04/12/2024 09:55:04 RSR' in V1 or V2 now present Myocardial infarct finding now present Sinus rhythm no longer present Atrial premature complex(es) no longer present Fusion complex(es) no longer present Aberrant conduction of supraventricular beat(s) no longer present Right bundle-branch block no longer present Electronically Signed On 04-15-24 12:47:45 KENO WRITER by Homero De La Vega
--- NOTE | 2024-04-15 12:50 | EKG ---
Test Date: 2024-04-12 Test Time: 09:46:20 International Banker: OSEAS MEASUREMENT RESULTS: Intervals: Rate: 101 [place]: 184 QRSD: 124 QT: 344 QTc: 446 [place]: P: 78 AL: 184 QRS: -33 T: 67 INTERPRETIVE STATEMENTS: Undetermined rhythm Left axis deviation Right bundle branch block Septal infarct, age undetermined Abnormal ECG No previous ECG available for comparison Electronically Signed On 04-15-24 12:48:15 ASSESSMENT SERVICES MANAGER by Homero De La Vega
[2024-04-15] MEDS ORDERED: JEVITY 1.2 CAL LIQUID 1,000 ML BOT FT SCH (14:00)
--- NOTE | 2024-04-15 14:17 | P.PN ---
Subjective Date of Service: 04/15/24 Chief Complaint: Respiratory failure Patient's condition is stable however he is unresponsive is only to very deep nailbed stimuli Review of Systems is unable to be obtained Physical Examination - Vital Signs Temperature: 96.9 F Blood Pressure: 138/82 Pulse: 62 Respirations: 18 Pulse Ox (%): 98 - Physical Exam General: Unresponsive Respiratory: Clear to auscultation bilaterally, Diminished Cardiovascular: No edema, Regular rate/rhythm - Studies Medications List Reviewed: Yes Assessment And Plan - Current Problems (Diagnosis) (1) Hypercapnic respiratory failure Current Visit: Yes Status: Acute Plan: Patient admitted with respiratory failure his condition appears to be stable And he has improved minimal oxygen record changer assembler to SIMV pressure support currently remains unresponsive will add thiamine patient is on minimal doses of Precedex labs reviewed renal function stable with no evidence of sepsis x-ray reviewed need to advance endotracheal tube repeat chest x-ray start weaning once he is more awake Qualifiers: Chronicity: acute on chronic Qualified Code(s): J96.22 - Acute and chronic respiratory failure with hypercapnia
[2024-04-15] MEDS: THIAMINE 200 MG/2 ML INJ IVP SCH (15:37)
[2024-04-15] MEDS: ARFORMOTEROL TARTRATE 15 MCG/2 ML VIAL.NEB NEB SCH (19:41)
--- NOTE | 2024-04-15 22:31 | PN ---
Date of Progress Note: 04/15/2024 Chief Complaint: Acute kidney injury secondary to contrast-induced nephropathy. Renal function stab ilized. The patient has nonoliguric urine output. The patient is admitted to the hospital with COPD exacerbation. He remains in ICU. The patient has hypercapnic respiratory failure. The patient was intubated due to worsening of the respiratory failure. The patient remains in ICU, remains intubate d. Review of Systems: Not obtainable. The patient is intubated. Physical Examination: Lungs: Faint rales bilaterally. Heart: S1, S2. 2/6 systolic murmur, left lower sternal border. Abdomen: Soft, nontender. Extremities: Slight edema. Laboratory Data: Sodium 143, potassium 3.9, bicarbonate 24, BUN 68, creatinine 1.4, phosphorus 2.1, magnesium 2.3. Impression And Plan: 1.Acute kidney injury secondary to contrast-induced nephropathy. There is ongoing hyperazotemia, hi gh BUN-creatinine ratio secondary to cardiorenal syndrome. The patient developed acute kidney injury due to contrast-induced nephropathy. He remains nonoliguric. Continue IV fluids as needed. 2.Hyponatremia. Sodium level overall is improving with IV fluids. Continue D5W. 3.Hypertension, controlled. Continue to monitor and adjust medication. 4.Hypokalemia. Supplementation according to lab results. 5.Respiratory failure secondary to chronic obstructive pulmonary disease exacerbation. Management p er Pulmonary. EB/MODL Voice ID: [id number] Report ID: [id number]
[2024-04-16 05:05] LABS: Anion Gap 10.3 mEq/L (5.0-15.0); Magnesium 2.2 mg/dL (1.6-2.4); Phosphorus 2.3 mg/dL (2.5-4.9); Potassium 5.3 mEq/L (3.5-5.1)
[2024-04-16 05:12] LABS: Hematocrit 30.6 % (39.6-49.0); Hemoglobin 10.6 g/dL (13.6-17.9); MCHC 34.6 g/dL (32.0-36.0); MCV 95.4 fL (80-100); MPV 10.1 fL (7.6-11.3); Platelets 74 thou/uL (152-406); RBC Red Blood Cell Count 3.21 M/uL (4.33-5.43); Red Cell Distribution Width 15.8 % (12.1-15.2)
--- NOTE | 2024-04-16 07:35 | CON ---
Date of Consultation: 04/13/2024 Reason For Consultation: Elevated BUN and creatinine, fluid management, electrolyte imbalance. History Of Present Illness: This is a pleasant 78-year-old gentleman. All the information has been obtained from the record, as the patient on BiPAP obtunded. The patient had lung cancer status post radiation, hypertension, hyperlipidemia, COPD, oxygen dependent. The patient was brought to the hospital with questionable colitis, started on IV fluid. Had leukocytosis. The patient found to have elevation in creatinine to 1.1 upon arrival, then gradually kidney function worsening, on the creatinine 1.6. The patient did not have low blood pressure, but CT with contrast on the + single dose of Lasix. The patient had been on IV fluid. CT with contrast was negative and obstructive uropathy has been ruled out. Past Medical History: Includes: 1. COPD, oxygen dependent. 2. Lung cancer. 3. Hypertension. 4. BiPAP. Past Surgical History: Includes: 1. Stomach surgery. 2. Hernia repair. Social History: Ex-smoker. Review of Systems: None obtainable. Allergies: NO KNOWN DRUG ALLERGY. Current Medications: The patient on include Flomax, metronidazole, hydralazine, atorvastatin, metoprolol 25 b.i.d., loperamide, Zofran, Solu-Medrol. Physical Examination: General: When I saw the patient, the patient sitting in bed, on BiPAP, obtunded. Vital Signs: Blood pressure 120/60, pulse of 67, afebrile. The patient had good urine output yesterday of 1350. Chest: Wheezing bilateral. Heart: S1, S2. Systolic murmur. Abdomen: Soft, nontender. Extremities: Trace edema. Neuro: The patient on sedation. Laboratory Data: Upon arrival to the hospital, sodium 138, potassium 4.4, creatinine 1.1, GFR 70. On April 12, creatinine 1.6, GFR down to 43. Latest lab data today; sodium 140, potassium 4.3, bicarb 26, BUN 58, creatinine 1.6, calcium 7.4, GFR 42, phosphorus 3.4, magnesium 2.3. Chest x-ray; cardiomegaly, mild infiltration and congestion. CT abdomen and pelvis, no hydronephrosis. Assessment And Plan: 1. Acute kidney injury, mostly secondary to contrast induced nephropathy with overdiuresis. I will go ahead and decrease IV fluid to 50 per hour. Keep holding the diuresis for the time being, and we will monitor the patient. I will go ahead and send for PC ratio, add CK and uric acid to evaluate for any other reason and we will monitor the patient closely. 2. Hypernatremia secondary to depletional. Continue current IV fluid with decreasing the rate. 3. Gastroenteritis, as by Primary. 4. Shortness of breath, hypoxemia secondary to COPD exacerbation hypercapnic respiratory failure continue current supportive measure. Follow up pulmonary intensive care and primary hospitalist. Thank you, Dr. Boone, for allowing us to participate in the care of your patient. Time spent examining the patient [id number]; reviewing data, lab, and radiology; placing order; discussing the case with the head orthopedic team physician including ICU nursing and hospitalist more than 75 minutes. NEY Voice ID: [id number] Report ID: [id number] MTDD
[2024-04-16] MEDS: SODIUM PHOSPHATE 15 MM in NA CHLORIDE 0.9% 250 ML IV ONE (08:00)
--- NOTE | 2024-04-16 08:56 | P.PN ---
Date of Service: 04/16/24 Subjective: Intubated, sedated OG, patricio in place No other acute events overnight More alert when weaning sedation today ROS: 10 point ROS as noted above, otherwise negative Physical exam GEN: Intubated, sedated HEENT: Normal conjunctiva, sclera anicteric, OG in place CV: Regular rate and rhythm, no edema Pulm: On Vent, tolerating with sedation ABD: Soft, nontender, nondistended, patricio in place, scrotal swelling present MSK: No joint tenderness Integumentary: Birthmark to suprapubic area/lower abdomen Neuro: Normal speech, normal affect Vitals reviewed Assessment: Hypoxic/hypercapnic respiratory failure secondary to severe COPD with exacerbation/lung cancer Lung cancer on chemo/radiation-last chemo 04/04 Colitis/Diarrhea Bandemia Hypophosphatemia NADINE Hyperkalemia Hypertension BPH Plan: Hypoxic/hypercapnic respiratory failure secondary to severe COPD with exacer bation/lung cancer Lung cancer on chemo/radiation-last chemo 04/04 Intubated 04/13 for hypercapnic respiratory failure Required intubation for hypercapnic respiratory failure despite use of BiPAP as patient was not tolerating wearing BiPAP This was discussed at length with who made the decision to reverse the DNR and trial intubation/vent ABGs improving, pulmonology consulted and following-possible wean from vent today Continue treatment for COPD including steroids, nebulizer treatments, wean vent settings as tolerated Per chart review patient was stage IV prostate cancer Progressive decline in the last few months Started enteral feeds 1/3 PT when off vent Colitis/Diarrhea Bandemia Thrombocytopenia Hypophosphatemia Has had 4 days of diarrhea Tachycardia improving Continue IV fluids Stool studies pending-did not meet criteria for testing for C. difficile NADINE Hyperkalemia Renal function improving Nephrology following Reduce IV fluids now with enteral nutrition/free water flushes Hypertension BPH Continue home medications DVT PPX: SCDs Code status:Full code Discharge Plan: Home Plan to discharge in: 48 hours Time Spent Managing Pts Care (In Minutes): 35
[2024-04-16] MEDS: D5W 1,000 ML IV SCH (09:16)
--- NOTE | 2024-04-16 09:42 | P.PN ---
Subjective Date of Service: 04/16/24 Chief Complaint: Respiratory failure Patient developed A-fib he is intermittently responsive otherwise stable on a ventilator minimal oxygen requirements currently on SIMV rate low-dose of Precedex drip Review of Systems is unable to be obtained Physical Examination - Vital Signs Temperature: 97.7 F Blood Pressure: 120/64 Pulse: 84 Respirations: 21 Pulse Ox (%): 97 - Physical Exam General: Unresponsive Respiratory: Clear to auscultation bilaterally Cardiovascular: Edema, Irregular heart rate/rhythm Gastrointestinal: Normal bowel sounds, Soft and benign External genitalia: Edema (Scrotal edema) - Studies Medications List Reviewed: Yes Assessment And Plan - Current Problems (Diagnosis) (1) Hypercapnic respiratory failure Current Visit: Yes Status: Acute Plan: Patient admitted with respiratory failure his condition appears to be stable And he has improved minimal oxygen pipe changer to SIMV pressure support currently remains unresponsive will add thiamine patient is on minimal doses of Precedex labs reviewed renal function stable with no evidence of sepsis x-ray reviewed need to advance endotracheal tube repeat chest x-ray start weaning once he is more awake due to generalized anasarca will start patient on IV Lasix for now Qualifiers: Chronicity: acute on chronic Qualified Code(s): J96.22 - Acute and chronic respiratory failure with hypercapnia (2) Atrial fibrillation Current Visit: Yes Status: Acute Plan: Patient developed A-fib currently is thrombocytopenic hold anticoagulation for now rate controlled Qualifiers: Atrial fibrillation type: paroxysmal Qualified Code(s): I48.0 - Paroxysmal atrial fibrillation
--- NOTE | 2024-04-16 10:14 | PN ---
Date of Progress Note: 04/16/2024 Subjective: Patient was admitted to the hospital with hypercapnic respiratory failure. The patient had worsening respiratory failure. Patient had to be intubated. Physical Examination: Vital Signs: Blood pressure 120/64, pulse of 84, afebrile. The patient in the process of extubation. The patient had good urine output of 1000. The patient positive of 2400. Chest: Slight wheezing bilateral. Heart: S1, S2. Systolic murmur. Abdomen: Soft, nontender. Extremities: No edema. Neuro: The patient on vent. Laboratory Data: WBC 5.3, hemoglobin 10.6. Sodium 137, potassium 5.3, bicarb 24, BUN 56, creatinine 1.1, GFR of 65, calcium 7.6, phosphorus 2.3, magnesium 2.2, albumin of 3.2, corrected calcium is 8.4. Current Medications: The patient on include Flomax, breathing treatment, metoprolol 12.5, Lasix 40 b.i.d., ipratropium. Assessment And Plan: 1. Acute kidney injury secondary to contrast-induced nephropathy, on the recovery back to baseline. The patient was started on Lasix. The patient will consider to discontinue the Lasix after extubation. Will follow up with Pulmonary. 2. Hypertension, controlled, optimal. Continue current treatment. 3. Hyperkalemia. The patient was started on Lasix. We will follow up. 4. Hypophosphatemia. Patient has acute kidney injury. We rather hold on supplement for the time being. 5. Hypernatremia secondary to depletion, recover, resolve. Spent examining the patient [id number] reviewing data lab and the radiology discussing the case with the patient discussing the case with the team assistant including hospitalist and nursing staff more than 55 minutes NEY Voice ID: [id number] Report ID: [id number] MAZIN
[2024-04-16] MEDS: FUROSEMIDE 40 MG/4 ML VIAL IV SCH (10:34)
--- NOTE | 2024-04-16 10:35 | RAD REPORT ---
EXAMINATION: ONE VIEW CHEST XR CLINICAL INDICATION: Resp failure TECHNIQUE: Frontal chest projection is submitted. Examination is limited by patient positioning and t echnique. COMPARISON: 04/14/2024 FINDINGS: Tip of the endotracheal tube is at the level of the superior aortic arch. Enteric tube tip descends i nto the upper abdomen. 2 cm rounded mass lesion right midlung is stable. COPD noted. The heart is upper limit of normal in size.
[2024-04-16] MEDS: METOPROLOL TAR 25 MG TAB PO ONE (12:55)
[2024-04-16] MEDS: FENTANYL CITR 100 MCG/2 ML IV PRN (17:06)
[2024-04-16] MEDS: LORazepam 2 MG/ML VIAL IV PRN (18:03)
[2024-04-16] MEDS: [UNRECOGNIZED DRUG - OTHER] FT SCH (21:01)
[2024-04-17 06:09] LABS: Hematocrit 29.5 % (39.6-49.0); MCH 32.2 pg (27.0-35.0); MCHC 34.1 g/dL (32.0-36.0); MCV 94.7 fL (80-100); MPV 11.1 fL (7.6-11.3); Platelets 77 thou/uL (152-406); RBC Red Blood Cell Count 3.12 M/uL (4.33-5.43); Red Cell Distribution Width 15.6 % (12.1-15.2)
--- NOTE | 2024-04-17 07:07 | P.PN ---
Date of Service: 04/17/24 Subjective: remains sedated and intubated occasionally opens eyes to verbal stimuli unable to follow basic commands ROS: unable to fully obtain d/t sedation/vent Physical Exam: GEN: Intubated, sedated CV: irregularly irregular rhythm, trace-1+ bilateral lower extremity edema Pulm: On Vent ABD: soft, nontender, +scrotal edema Neuro: opens eyes intermittently, not following commands Montoya in place, OG tube in place Problem List: Acute Hypoxic/hypercapnic respiratory failure secondary acute on chronic COPD exacerbation / Lung cancer Lung cancer on chemo/radiation (last chemo 04/04) Paroxysmal A-fib; new onset Colitis Bandemia Thrombocytopenia Hypophosphatemia NADINE Hyperkalemia Hypertension BPH Acute Hypoxic/hypercapnic respiratory failure secondary acute on chronic COPD exacerbation / Lung cancer Lung cancer on chemo/radiation (last chemo 04/04) Intubated 04/13 for worsening hypercapnic respiratory failure. Required intubation despite use of BiPAP as patient was not tolerating wearing BiPAP This was discussed at length with who made the decision to reverse the DNR and trial intubation/vent Per chart review patient was stage IV prostate cancer. Has been progressive declining in the last few months per family Echo (04/12): 60-65% EF, normal wall motion, normal diastolic function. Mild pulmonary hypertension Dr. Valdes, Pulm is following s/p IV steroids (04/10-04/16) Continue duonebs, IV lasix Tube feeds started 1/3 Off precedex since 04/16 evening; given fentanyl x3, ativan x2 overnight ABG with improvement of PCO2 Wean vent as tolerated, repeat ABG CXR (04/17) lungs clear of acute infiltrate. No effusion. Paroxysmal A-fib; new onset Cardiology consulted. EKG reviewed. Difficult to discern A-fib vs sinus tachycardia with frequent PAC given significant artifacts Continue metoprolol; increase to 25 mg BID 04/17 Monitor on telemetry hold anticoagulation given thrombocytopenia Colitis Bandemia Thrombocytopenia Hypophosphatemia Stool studies pending-did not meet criteria for testing for C. difficile s/p IV fluids PPI Daily labs NADINE Hyperkalemia NADINE secondary to contrast-induced nepropathy Nephrology consulted Continue to monitor renal function Monitor and replete electrolytes as needed IVF dc'd 04/16 on IV lasix 40 mg BID Hypertension BPH Continue home medications VTE: SCD Code: Full continue ICU level of care Time Spent Managing Pts Care (In Minutes): 55
--- NOTE | 2024-04-17 07:37 | RAD REPORT ---
Procedure: Chest Single View HISTORY: Cough COMPARISON: April 16, 2024 FINDINGS: Right lung nodule unchanged.. The remainder of the lungs appear clear of acute infiltrate. No significant pleural effusion noted. The heart is normal size. Endotracheal tube 1.5 cm the top of the aortic arch. Nasogastric tube is not well visualized on this exam.
[2024-04-17] MEDS: METOPROLOL TAR 25 MG TAB PO ONE (07:48)
[2024-04-17 08:38] LABS: Anion Gap 7.3 mEq/L (5.0-15.0); Phosphorus 1.6 mg/dL (2.5-4.9); Potassium 4.3 mEq/L (3.5-5.1)
[2024-04-17 09:44] LABS: Arterial Blood Carboxyhemoglob 0.6 % (0-1.5); Blood Gas Oxyhemoglobin 95.8 % (94-97); Blood Gas THB 10.5 g/dl (12-18); Blood O2 Saturation 97.5 % (92-98.5)
--- NOTE | 2024-04-17 11:05 | PN ---
Date of Progress Note: 04/17/2024 Subjective: The patient was admitted to the hospital with COPD exacerbation. The patient had worsening respiratory status. The patient was intubated yesterday. The patient has some peripheral edema. For that reason, patient was resumed on the Lasix. In spite of the finding on the chest x-ray, no over volume status. The patient responded very well to the Lasix, had very good urine output. Objective: Vital Signs: Blood pressure 124/88, pulse of 101. The patient had urine output of 3900- of 2 L. Chest: Clear to auscultation. Heart: S1, S2. Systolic murmur. Abdomen: Soft, nontender. Extremities: +1 edema more prominent more than a +2 on the upper extremity. : Had scrotal edema. Neuro: The patient sedated on vent. Laboratory Data: Hemoglobin 10. Sodium 138, potassium 4.3, bicarb 31, coming up from 24, BUN 66, creatinine 1.2, mild elevation compared to yesterday, GFR of 58, calcium 7.7, phos 1.6, magnesium 2, albumin is 3.2. Current Medications: The patient on include, 1. Albuterol. 2. Flomax. 3. Metoprolol 12.5 b.i.d. 4. Lasix 40 b.i.d. 5. Pantoprazole. Assessment And Plan: 1. Acute kidney injury, possible marginal over diurese with contrast before. I am going to continue with diuresis as by the request of the Pulmonary for the time being and to establish better peripheral edema status and we will monitor. We will consider maybe holding on it either tomorrow give the patient started developing some alkalosis. 2. Hyperkalemia, resolved. 3. Hypernatremia, resolved. 4. Hypophosphatemia, we will supplement. 5. Respiratory failure secondary to chronic obstructive pulmonary disease exacerbation. Follow up with Pulmonary. Continue supportive care. Spent examining the patient [id number] reviewing data lab and the radiology discussing the case with the patient discussing the case with the [employer] team member including hospitalist and nursing staff more than 55 minutes NEY Voice ID: [id number] Report ID: [id number] MAZIN
[2024-04-17] MEDS: POTASSIUM PHOS IN 0.9 % NACL 15 MMOL/250 ML BAG IV ONE (12:22)
[2024-04-17] MEDS: METOPROLOL TAR 25 MG TAB PO SCH (16:50)
[2024-04-18] MEDS: LORazepam 2 MG/ML VIAL IV ONE (04:55)
[2024-04-18 05:26] LABS: Hematocrit 31.6 % (39.6-49.0); Hemoglobin 10.9 g/dL (13.6-17.9); MCH 32.9 pg (27.0-35.0); MCHC 34.6 g/dL (32.0-36.0); MCV 95.1 fL (80-100); MPV 11.3 fL (7.6-11.3); Platelets 102 thou/uL (152-406); RBC Red Blood Cell Count 3.32 M/uL (4.33-5.43); Red Cell Distribution Width 15.8 % (12.1-15.2)
[2024-04-18 05:49] LABS: Albumin 2.5 g/dL (3.4-5.0); Albumin/Globulin Ratio 0.7 (1.1-1.8); Bilirubin Total 0.3 mg/dL (0.2-1.0); Globulin 3.6 g/dL (2.3-3.5); Magnesium 1.9 mg/dL (1.6-2.4); Phosphorus 2.5 mg/dL (2.5-4.9); Protein, Total 6.1 g/dL (6.4-8.2)
--- NOTE | 2024-04-18 07:25 | P.PN ---
Date of Service: 04/18/24 Subjective: remains intubated restless, agitated overnight. biting on tube at times` occasionally opens eyes to verbal stimuli attempted to wean vent yesterday, but couldn't follow basic commands consistently ROS: unable to fully obtain d/t sedation/vent Physical Exam: GEN: Intubated, sedated CV: Regular rate and rhythm, trace-1+ bilateral lower extremity edema Pulm: On Vent ABD: soft, nontender +scrotal edema Neuro: opens eyes intermittently, not following commands Montoya in place, OG tube in place Problem List: Acute Hypoxic/hypercapnic respiratory failure secondary acute on chronic COPD exacerbation / Lung cancer Lung cancer on chemo/radiation (last chemo 04/04) Paroxysmal A-fib; new onset Colitis Bandemia Thrombocytopenia Hypophosphatemia NADINE Hyperkalemia Hypertension BPH Acute Hypoxic/hypercapnic respiratory failure secondary acute on chronic COPD exacerbation / Lung cancer Lung cancer on chemo/radiation (last chemo 04/04) Intubated 04/13 for worsening hypercapnic respiratory failure. Required intubation despite use of BiPAP as patient was not tolerating wearing BiPAP This was discussed at length with who made the decision to reverse the DNR and trial intubation/vent Per chart review patient was stage IV prostate cancer. Has been progressive declining in the last few months per family Echo (04/12): 60-65% EF, normal wall motion, normal diastolic function. Mild pulmonary hypertension Dr. Valdes, Pulm is following s/p IV steroids (04/10-04/16) Continue duonebs Tube feeds started / Off precedex since 04/16 evening; given fentanyl x3, ativan x3 overnight ABG with improvement of PCO2 Wean vent as tolerated CXR (04/17) lungs clear of acute infiltrate. No effusion. DC IV lasix for now, given increase in renal fxn icnreased work of breathing this morning, doesn't seem ready for extubation, will discuss with pulm / restart precedex Paroxysmal A-fib; new onset Cardiology consulted. EKG reviewed. Difficult to discern A-fib vs sinus tachycardia with frequent PAC given significant artifacts Continue metoprolol; increase to 25 mg BID 04/17 Monitor on telemetry held anticoagulation given thrombocytopenia Colitis Bandemia Thrombocytopenia Hypophosphatemia Stool studies pending-did not meet criteria for testing for C. difficile s/p IV fluids PPI Daily labs NADINE Hyperkalemia NADINE secondary to contrast-induced nepropathy Nephrology consulted Continue to monitor renal function Monitor and replete electrolytes as needed IVF dc'd 04/16 DC IV lasix Hypertension BPH Continue home medications VTE: SCD Code: Full continue ICU level of care Time Spent Managing Pts Care (In Minutes): 55
--- NOTE | 2024-04-18 08:24 | P.PN ---
Subjective Date of Service: 04/18/24 Chief Complaint: Respiratory failure Patient is not doing well unable to wean minimally responsive put back on assist-control and Precedex drip Review of Systems is unable to be obtained Physical Examination - Vital Signs Temperature: 97.9 F Blood Pressure: 122/68 Pulse: 96 Respirations: 24 Pulse Ox (%): 100 - Physical Exam General: Unresponsive Neck: Supple Respiratory: Clear to auscultation bilaterally, Diminished Cardiovascular: No edema, Regular rate/rhythm, Normal S1 S2, Edema Gastrointestinal: Normal bowel sounds External genitalia: Edema - Studies Medications List Reviewed: Yes Assessment And Plan - Current Problems (Diagnosis) (1) Hypercapnic respiratory failure Current Visit: Yes Status: Acute Plan: Patient admitted with hypoxic hypercapnic respiratory failure due to severe COPD not doing well unable to wean and extubate patient continues to struggle on SIMV today I resumed AC with Precedex drip renal function is slightly worse diuretics discontinued chest x-ray endotracheal tube satisfactory position consider LTAC resume Solu-Medrol Qualifiers: Chronicity: acute on chronic Qualified Code(s): J96.22 - Acute and chronic respiratory failure with hypercapnia (2) Atrial fibrillation Current Visit: Yes Status: Acute Plan: Patient is back in sinus rhythm Qualifiers: Atrial fibrillation type: paroxysmal Qualified Code(s): I48.0 - Paroxysmal atrial fibrillation
[2024-04-18] MEDS: METHYLPREDNISOLONE 40 MG INJ IV SCH (08:37)
[2024-04-18] MEDS ORDERED: DEXMEDETOMIDINE HCL 200 MCG in NA CHLORIDE 0.9% 98 ML IV SCH (09:00)
--- NOTE | 2024-04-18 22:35 | PN ---
Date of Progress Note: 04/18/2024 Subjective: The patient is admitted to the hospital with COPD exacerbation and respiratory failure. The patient was intubated and currently he remains intubated, and he failed weaning. Note, the shaista ent was resumed on Lasix, although today Lasix is on hold. The patient has adequate urine output. Review of Systems: Unobtainable. The patient remains intubated. Physical Examination: Lungs: Clear to auscultation bilaterally. Heart: S1, S2. 2/6 systolic murmur, left lower sternal border. Abdomen: Soft. Extremities: 1+ present. : Scrotal edema. Neurologic: The patient is sedated, on vent. Impression And Plan: 1.Acute kidney injury, possible over diuresis and Lasix is on hold. Continue to monitor fluid shar ce. The patient remains intubated. Pulmonary Service is following the patient. 2.Hyperkalemia, resolved. 3.Hyponatremia, resolved. Monitor electrolytes. 4.Hypophosphatemia. Supplementation according to lab results. 5.Respiratory failure secondary to chronic obstructive pulmonary disease exacerbation. Continue sup portive care. Pulmonary is following. EB/MODL Voice ID: [id number] Report ID: [id number]
[2024-04-19 05:50] LABS: Absolute Lymphocytes (CBC) 0.1 K/uL (0.7-4.9); Absolute Monocytes 0.2 K/uL (0.1-1.3); Absolute Neutrophil 7.3 K/uL (1.8-8.0); Basophils % 0.3 % (0-1.3); Hematocrit 30.3 % (39.6-49.0); Hemoglobin 10.4 g/dL (13.6-17.9); Lymphocytes % 1.1 % (15.3-44.8); MCH 32.8 pg (27.0-35.0); MCHC 34.2 g/dL (32.0-36.0); MCV 95.9 fL (80-100); MPV 9.7 fL (7.6-11.3); Monocytes % 2.4 % (3.3-12.3); Neutrophils % 96.2 % (41.7-73.7); Platelets 78 thou/uL (152-406); RBC Red Blood Cell Count 3.16 M/uL (4.33-5.43); Red Cell Distribution Width 16.1 % (12.1-15.2)
[2024-04-19 06:25] LABS: Albumin 2.2 g/dL (3.4-5.0); Albumin/Globulin Ratio 0.6 (1.1-1.8); Anion Gap 7.8 mEq/L (5.0-15.0); Bilirubin Total 0.2 mg/dL (0.2-1.0); Globulin 3.6 g/dL (2.3-3.5); Magnesium 2.2 mg/dL (1.6-2.4); Phosphorus 2.7 mg/dL (2.5-4.9); Potassium 4.8 mEq/L (3.5-5.1); Protein, Total 5.8 g/dL (6.4-8.2)
--- NOTE | 2024-04-19 07:57 | P.PN ---
Subjective Date of Service: 04/19/24 Chief Complaint: Respiratory failure Change in patient's condition he still continues to remain unresponsive rating tube feeds hemodynamically stable agitated requiring sedation Review of Systems is unable to be obtained Physical Examination - Vital Signs Temperature: 97.8 F Blood Pressure: 94/55 Pulse: 65 Respirations: 21 Pulse Ox (%): 100 - Physical Exam General: Unresponsive Respiratory: Clear to auscultation bilaterally, Diminished Cardiovascular: Regular rate/rhythm, Normal S1 S2, Edema - Studies Medications List Reviewed: Yes Assessment And Plan - Current Problems (Diagnosis) (1) Hypercapnic respiratory failure Current Visit: Yes Status: Acute Plan: Patient has respiratory failure requiring minimal oxygen try weaning him off from the ventilator wean off the Precedex wean him off using SIMV or pressure support chest x-ray has been ordered labs renal function is improving continues to remain unresponsive do a head CT today DC pantoprazole for now patient is on tube feeds Qualifiers: Chronicity: acute on chronic Qualified Code(s): J96.22 - Acute and chronic respiratory failure with hypercapnia (2) Atrial fibrillation Current Visit: Yes Status: Acute Plan: Patient is back in sinus rhythm Qualifiers: Atrial fibrillation type: paroxysmal Qualified Code(s): I48.0 - Paroxysmal atrial fibrillation
[2024-04-19 08:25] LABS: Differential Total Cells Count 100; Lymphocytes 1 % (15-42); Metamyelocytes 1 % (0-0); Monocytes 2 % (0-10); Platelet Estimate DECR; Platelets, Giant FEW; Segmented Neutrophils 96 % (40-80)
[2024-04-19 08:26] LABS: Blood Morphology Comment NOT SEEN (NOT SEEN); Toxic Granulation 1+
--- NOTE | 2024-04-19 09:07 | RAD REPORT ---
Procedure: Chest Single View HISTORY: Respiratory failure COMPARISON: April 17, 2024 FINDINGS: Right lung nodule unchanged. The lungs appear clear of acute infiltrate. No significant pleural effusion noted. The heart is normal size. An endotracheal tube has its tip at the level of the aortic arch. Nasogastric tube in the proximal stomach
[2024-04-19 11:30] LABS: Arterial Blood Carboxyhemoglob 0.7 % (0-1.5); Blood Gas Oxyhemoglobin 81.6 % (94-97); Blood Gas THB 11.8 g/dl (12-18); Blood O2 Saturation 83.2 % (92-98.5)
--- NOTE | 2024-04-19 14:25 | P.PN ---
Subjective Date of Service: 04/19/24 Chief Complaint: Respiratory failure Patient sedated and on mechanical ventilator. Weaning trial with SIMV, followed by spontaneous breathing trial and then CPAP done today. Precedex drip weaned to low-dose, patient is somnolent during the weaning trial. No issues overnight. No recorded fever. Physical Examination - Vital Signs Temperature: 97.5 F Blood Pressure: 141/89 Pulse: 70 Respirations: 22 Pulse Ox (%): 100 - Studies Medications List Reviewed: Yes Assessment And Plan - Plan Problem List: Acute Hypoxic/hypercapnic respiratory failure secondary acute on chronic COPD exacerbation / Lung cancer Lung cancer on chemo/radiation (last chemo 04/04) Paroxysmal A-fib; new onset Colitis Bandemia Thrombocytopenia Hypophosphatemia NADINE Hyperkalemia Hypertension BPH Acute Hypoxic/hypercapnic respiratory failure secondary acute on chronic COPD exacerbation / Lung cancer Lung cancer on chemo/radiation (last chemo 04/04) Intubated 04/13 for worsening hypercapnic respiratory failure. Patient did not tolerate BiPAP. Spouse reversed patient DNR order. Per chart review patient was stage IV prostate cancer. Has been progressive declining in the last few months per family Echo (04/12): 60-65% EF, normal wall motion, normal diastolic function. Mild pulmonary hypertension Stevan Castillo is following Continue IV steroids Continue duonebs Tube feeds started 04/15 Patient currently on low-dose Precedex. Patient did not tolerate weaning trials today. Trial of SIMV per pulmonary Wean vent as tolerated CXR (04/17) lungs clear of acute infiltrate. No effusion. Off Lasix given increase in serum creatinine. Serum creatinine improved after discontinuing Lasix. Paroxysmal A-fib; new onset Cardiology input appreciated. EKG reviewed. Difficult to discern A-fib vs sinus tachycardia with frequent PAC given significant artifacts Continue metoprolol; increased to 25 mg BID on 04/17. Heart rate is stable. Monitor on telemetry Anticoagulation on hold given thrombocytopenia. Colitis Bandemia Thrombocytopenia Hypophosphatemia Stool studies unremarkable. s/p IV fluids PPI Daily labs NADINE Hyperkalemia NADINE secondary to contrast-induced nepropathy Nephrology consulted. Hyperkalemia resolved. Continue to monitor renal function Monitor and replete electrolytes as needed IVF discontinued 04/16 IV lasix discontinued. Hypertension Metoprolol 25 mg twice daily Hydralazine IV as needed for BP spikes BPH Continue home dose tamsulosin VTE: SCD Code: Full continue ICU level of care
[2024-04-19 16:11] VITALS: BMI 29.9
[2024-04-19 16:47] LABS: Arterial Blood Carboxyhemoglob 0.9 % (0-1.5); Blood Gas Oxyhemoglobin 90.2 % (94-97); Blood O2 Saturation 91.9 % (92-98.5)
--- NOTE | 2024-04-20 03:22 | PN ---
Date of Progress Note: 04/19/2024 Subjective: The patient was admitted to the hospital with COPD exacerbation. The patient had hyperc apnic respiratory failure. The patient was intubated. Physical Examination: Vital Signs: Blood pressure 138/73, pulse of 81. Chest: Wheezing, bilateral. Heart: S1, S2. Systolic murmur. Abdomen: Soft, nontender. Extremities: No edema. Neuro: The patient is sedated. Laboratory Data: Hemoglobin 10.4. Sodium 139, potassium 4.8, bicarb 34, BUN 81, creatinine 1.2, leodan cium 8.1. Current Medications: The patient is on include: 1.Albuterol. 2.Hydralazine. 3.Metoprolol. 4.Lorazepam. 5.Fentanyl. Assessment And Plan: 1.Acute kidney injury secondary to contrast-induced nephropathy, recovered, resolved. 2.Over volume, currently normal volume. Lasix has been discontinued. 3.Respiratory failure secondary to hypercapnic respiratory failure. Follow up with Pulmonary. Cont inue vent support. NEY Voice ID: [id number] Report ID: [id number]
[2024-04-20] MEDS: propofoL 1,000 MG/100 ML VIAL IV SCH (07:24)
[2024-04-20 07:43] LABS: Anion Gap 6.3 mEq/L (5.0-15.0); Magnesium 2.3 mg/dL (1.6-2.4); Phosphorus 2.1 mg/dL (2.5-4.9); Potassium 5.3 mEq/L (3.5-5.1)
[2024-04-20 07:54] LABS: Absolute Lymphocytes (CBC) 0.1 K/uL (0.7-4.9); Absolute Monocytes 0.6 K/uL (0.1-1.3); Absolute Neutrophil 8.5 K/uL (1.8-8.0); Basophils % 0.1 % (0-1.3); Eosinophils % 0.2 % (0-4.4); Hematocrit 29.8 % (39.6-49.0); MCH 32.3 pg (27.0-35.0); MCHC 33.6 g/dL (32.0-36.0); MPV 9.5 fL (7.6-11.3); Monocytes % 6.1 % (3.3-12.3); Neutrophils % 92.6 % (41.7-73.7); Nucleated Red Blood Cells % 0.1 % (0-0); Platelets 77 thou/uL (152-406); RBC Red Blood Cell Count 3.11 M/uL (4.33-5.43); Red Cell Distribution Width 15.9 % (12.1-15.2)
[2024-04-20] MEDS: FLUCONAZOLE 100mg IVPB 100 MG/50 ML BAG IV SCH (08:00)
[2024-04-20 08:05] LABS: ALT/SGPT 22 U/L (16-61); AST/SGOT 17 U/L (15-37); Albumin 2.1 g/dL (3.4-5.0); Albumin/Globulin Ratio 0.6 (1.1-1.8); Alkaline Phosphatase 55 U/L (45-117); Bilirubin Direct < 0.2 mg/dL (0-0.2); Bilirubin Total 0.2 mg/dL (0.2-1.0); Globulin 3.6 g/dL (2.3-3.5); Protein, Total 5.7 g/dL (6.4-8.2)
[2024-04-20] MEDS: VANCOMYCIN 2 GM in NA CHLORIDE 0.9% 500 ML IVPB SCH (08:39)
[2024-04-20] MEDS: CEFEPIME 2 GM in NA CHLORIDE 0.9% 100 ML IV SCH (08:39)
[2024-04-20] MEDS: FLUCONAZOLE 200mg IVPB 200 MG/100 ML BAG IV SCH (08:39)
[2024-04-20] MEDS: Mupirocin NASAL 2 APPL/1 GM TUBE NAS SCH (08:39)
--- NOTE | 2024-04-20 08:48 | RAD REPORT ---
EXAMINATION: ONE VIEW CHEST XR CLINICAL INDICATION: Male, 78 years old.,Respiratory failure TECHNIQUE: Frontal chest projection is submitted. Examination is limited by patient positioning and t echnique. COMPARISON: 04/19/2024 FINDINGS: Endotracheal and enteric tubes unchanged in position. Rounded opacity overlying the right fourth cost ochondral junction, stable. The lungs are well inflated and clear, apart from stable mild bibasilar atelectasis. Mild central interstitial prominence, stable. No pneumothorax or sizable effusion. The heart is normal in size. Mediastinal contours are unremarkable. IMPRESSION: Stable findings as above.
[2024-04-20 09:21] VITALS: TEMP 97.1
[2024-04-20] MEDS: GLYCOPYRROLATE 0.2 MG/ML SYR IV PRN (10:32)
[2024-04-20] MEDS: MORPHINE 4 MG/ML SYR IV PRN (10:33)
[2024-04-20] MEDS: LORazepam 2 MG/ML VIAL IV PRN (10:33)
[2024-04-20 11:14] VITALS: O2SAT 100
[2024-04-20 11:20] LABS: Arterial Blood Carboxyhemoglob 0.6 % (0-1.5); Blood O2 Saturation 98.7 % (92-98.5)
[2024-04-20 11:21] LABS: Blood Gas THB 14.1 g/dl (12-18)
--- NOTE | 2024-04-20 11:52 | PN ---
Date of Progress Note: 04/20/2024 Subjective: The patient was admitted with COPD exacerbation. The patient has been intubated. Objective: Vital Signs: Blood pressure 118/68, pulse of 75, afebrile. Chest: Wheezing, bilateral. Heart: S1, S2. Systolic murmur. Abdomen: Soft, nontender. Extremities: +1 edema. Laboratory Data: Hemoglobin 10. Sodium 138, potassium 5.3, bicarb 32, BUN 72, creatinine 1, calcium 8, phosphorus 2.1, magnesium 2.3. Current Medications: Vancomycin, cefepime, fluconazole, Flomax, metoprolol, breathing treatment. Assessment And Plan: 1.Acute kidney injury secondary to contrast-induced nephropathy, recovered, resolved. The patient i s going to be hospice withdraw care. I am going to sign off. Please call us as needed. 2.Hyperkalemia. No need for treatment. The patient will change to hospice. NEY Voice ID: [id number] Report ID: [id number]
[2024-04-20 12:05] VITALS: BP 136/89
--- NOTE | 2024-04-20 12:15 | P.PN ---
Subjective Date of Service: 04/20/24 Chief Complaint: Respiratory failure No change in patient's condition patient continues to remain unresponsive unable to wean the patient off the ventilator is developing worsening anasarca Review of Systems is unable to be obtained Physical Examination - Vital Signs Temperature: 97.1 F Blood Pressure: 136/89 Pulse: 84 Respirations: 16 Pulse Ox (%): 99 - Physical Exam General: Unresponsive, Comatose Respiratory: Clear to auscultation bilaterally, Diminished Cardiovascular: Edema (Generalized edema) - Studies Medications List Reviewed: Yes Assessment And Plan - Current Problems (Diagnosis) (1) Hypercapnic respiratory failure Current Visit: Yes Status: Acute Plan: Patient has hypercapnic respiratory failure in addition to lung cancer will to wean the patient off from the ventilator patient is progressively deteriorating still remains unresponsive discussed with the plan for DNR extubate comfort care DC steroids due to anasarca patient is oxygenation satisfactory hypercapnic Qualifiers: Chronicity: acute on chronic Qualified Code(s): J96.22 - Acute and chronic respiratory failure with hypercapnia (2) Atrial fibrillation Current Visit: Yes Status: Acute Plan: Patient is back in sinus rhythm Qualifiers: Atrial fibrillation type: paroxysmal Qualified Code(s): I48.0 - Paroxysmal atrial fibrillation
--- NOTE | 2024-04-20 19:12 | P.PN ---
Subjective Date of Service: 04/20/24 Chief Complaint: Respiratory failure Patient seen with agonal breathing on SIMV. Patient was on both propofol and Precedex sedation. No recorded fever. Physical Examination - Vital Signs Temperature: 97.1 F Blood Pressure: 136/89 Pulse: 84 Respirations: 23 Pulse Ox (%): 100 - Studies Medications List Reviewed: Yes Assessment And Plan - Plan Physical examination General: Sedated and on mechanical ventilation HEENT: ET tube and OG tube in place Heart: Heart sounds 1 and 2 normal, regular rhythm, normal rate, bilateral upper extremity lower extremity edema. Lungs: Bilateral upper airway transmitted sounds, diminished breath sounds on the vent. Abdomen: Soft, nondistended, nontender, normal bowel sounds. Extremities: No tenderness, no deformity Skin: Normal skin turgor, no rash, no nodules or ulcers. Neuro: Sedated. Problem List: Acute Hypoxic/hypercapnic respiratory failure secondary acute on chronic COPD exacerbation / Lung cancer Lung cancer on chemo/radiation (last chemo 04/04) Paroxysmal A-fib; new onset Colitis Bandemia Thrombocytopenia Hypophosphatemia NADINE Hyperkalemia Hypertension BPH Acute Hypoxic/hypercapnic respiratory failure secondary acute on chronic COPD exacerbation / Lung cancer Lung cancer on chemo/radiation (last chemo 04/04) Intubated 04/13 for worsening hypercapnic respiratory failure. Patient did not tolerate BiPAP. Patient with agonal breathing. Chest x-ray reviewed this morning and noted it is stable with no new infiltrate, edema, or atelectasis or pneumothorax. Goals of care discussion discussed with patient and spouse given no significant improvement with aggressive treatment. Spouse initially reversed patient's DNR order. She has opted for withdrawal of care and comfort measures and DNR and stated this is in line with patient's wishes. Stevan Castillo is following and agrees with comfort measures. Patient extubated to oxygen by nasal cannula, comfort measures initiated. Vitals are holding on. Patient will be discharged to hospice service for inpatient hospice. Paroxysmal A-fib; new onset Cardiology input appreciated. EKG reviewed. Difficult to discern A-fib vs sinus tachycardia with frequent PAC given significant artifacts Comfort measures initiated Colitis Bandemia Thrombocytopenia Hypophosphatemia Comfort measures initiated. NADINE Hyperkalemia Comfort measures initiated Hypertension Comfort measures initiated BPH Comfort measures initiated.
--- NOTE | 2024-04-20 19:42 | P.DS ---
Admission Date: 04/09/24 Discharge Date: 04/20/24 Disposition: DC TO [facility] Reason for Admission: Respiratory failure Brief History of Present Illness: 78-year-old male currently on chemotherapy, radiation for lung cancer, hypertension, hyperlipidemia, COPD on home O2 at around 2 L presented to the emergency department with chief complaint of diarrhea. He reports has had diarrhea for 4 days, his last chemo was on Wednesday 04/04, last had radiation the day before presentation. He was evaluated in the emergency department his labs were significant for a 32% bands, white blood cell count 4.6 hemoglobin 11.[address] shows mild colitis versus diarrheal state, incidentally noted large right inguinal hernia containing colon but without evidence of bowel obstruction or other complicating features. Patient was treated with IV antibiotics, IV fluids but was still tachycardic with heart rate 110-120 despite duration and IV fluids. Patient was admitted for further management. Hospital Course: Problem List: Acute Hypoxic/hypercapnic respiratory failure secondary acute on chronic COPD exacerbation / Lung cancer Lung cancer on chemo/radiation (last chemo 04/04) Paroxysmal A-fib; new onset Colitis Bandemia Thrombocytopenia Hypophosphatemia NADINE Hyperkalemia Hypertension BPH Patient was admitted and the following medical problems addressed: Acute Hypoxic/hypercapnic respiratory failure secondary acute on chronic COPD exacerbation / Lung cancer Lung cancer on chemo/radiation (last chemo 04/04) Patient admitted and treated for COPD exacerbation with bronchodilators, steroids and empiric antibiotics. Patient's respiratory condition worsened and needed BiPAP but he did not tolerate BiPAP He was intubated for worsening hypercapnic respiratory failure and managed in the ICU. Patient clinical condition did not improve with aggressive treatment. Patient subsequently developed agonal breathing. Goals of care discussion discussed with patient and spouse given no significant improvement with aggressive treatment. Spouse initially reversed patient's DNR order. Spouse later opted for withdrawal of care and comfort measures and DNR and stated this is in line with patient's wishes. Pulmonary Dr. Valdes Pulzaynab followed patient and agreed with comfort measures. Patient extubated to oxygen by nasal cannula, comfort measures initiated. Patient discharged to inpatient hospice. Vital Signs/Physical Exam: Temp Pulse Resp BP Pulse Ox 97.1 F 84 23 H 136/89 100 04/20/24 19:12 04/20/24 19:12 04/20/24 19:12 04/20/24 19:12 04/20/24 19:12 Laboratory Data at Discharge: WBC 9.20 thou/uL (4.3-10.9) 04/20/24 07:45 Hgb 10.0 g/dL (13.6-17.9) L 04/20/24 07:45 Hct 29.8 % (39.6-49.0) L 04/20/24 07:45 Plt Count 77 thou/uL (152-406) L 04/20/24 07:45 Sodium 138 mEq/L (136-145) 04/20/24 07:13 Potassium 5.3 mEq/L (3.5-5.1) H 04/20/24 07:13 BUN 72 mg/dL (7-18) H 04/20/24 07:13 Creatinine 1.05 mg/dL (0.70-1.30) 04/20/24 07:13 Glucose 203 mg/dL (74-106) H 04/20/24 07:13 Uric Acid 7.0 mg/dL (3.5-7.2) 04/13/24 10:28 Phosphorus 2.1 mg/dL (2.5-4.9) L 04/20/24 07:13 Magnesium 2.3 mg/dL (1.6-2.4) 04/20/24 07:13 Total Bilirubin 0.2 mg/dL (0.2-1.0) 04/20/24 07:13 AST 17 U/L (15-37) 04/20/24 07:13 ALT 22 U/L (16-61) 04/20/24 07:13 Alkaline Phosphatase 55 U/L (45-117) 04/20/24 07:13 Lipase 14 U/L (13-75) 04/09/24 11:20 Home Medications: Amlodipine [Norvasc*] 10 mg PO DAILY 12/07/23 Atorvastatin Calcium [Lipitor] 40 mg PO DAILY 12/07/23 Budesonide/Glycopyr/Formoterol [Breztri Aerosphere Inhaler] 4 puff IH DAILY 12/07/23 Tamsulosin [Flomax*] 2 cap PO DAILY 12/07/23 Varenicline Tartrate [Chantix] 2 tab PO DAILY 12/07/23 Amlodipine [Norvasc] 10 mg PO DAILY 04/09/24 Atorvastatin Calcium [Lipitor] 40 mg PO BEDTIME 04/09/24 Budesonide/Glycopyr/Formoterol [Breztri Aerosphere Inhaler] 10.7 gm IH DAILY 04/09/24 Tamsulosin [Flomax] 0.4 mg PO BEDTIME 04/09/24 Varenicline Tartrate [Chantix] 2 mg PO DAILY 04/09/24 Followup: Fernando Meyers MD [Primary Care Provider] - Time spent managing pt's care (in minutes): 35
[2024-04-21] MEDS ORDERED: VANCOMYCIN 1.5 GM in NA CHLORIDE 0.9% 500 ML IVPB SCH (09:00)
== END 2024-04-20 19:22 | disposition hospice, inpatient (51) | DRG 207 ==
LOC: ER 10:55 → EDBD 10:55 → ERHOLD 14:45 → MERGE 14:45 → 2ND 15:36 → 3RD-ICU 04-11 01:13
PROVIDERS: ADMIT Internal Medicine; ATTEND Internal Medicine
PROC: 5A09457 Assistance with Respiratory Ventilation, 24-96 Consecutive Hours, Continuous Positive Airway Pressure (ICD-10-PCS; 2024-04-10)
PROC: 4A033R1 Measurement of Arterial Saturation, Peripheral, Percutaneous Approach (ICD-10-PCS; 2024-04-11)
PROC: 5A1955Z Respiratory Ventilation, Greater than 96 Consecutive Hours (ICD-10-PCS; principal; 2024-04-13)
PROC: 0BH17EZ Insertion of Endotracheal Airway into Trachea, Via Natural or Artificial Opening (ICD-10-PCS; 2024-04-13)
PROC: 0T9B70Z Drainage of Bladder with Drainage Device, Via Natural or Artificial Opening (ICD-10-PCS; 2024-04-13)
PROC: 0DH67UZ Insertion of Feeding Device into Stomach, Via Natural or Artificial Opening (ICD-10-PCS; 2024-04-13)
PROC: 02HV33Z Insertion of Infusion Device into Superior Vena Cava, Percutaneous Approach (ICD-10-PCS; 2024-04-16)
DX: J44.1 Chronic obstructive pulmonary disease with (acute) exacerbation (principal); J96.01 Acute respiratory failure with hypoxia; J96.22 Acute and chronic respiratory failure with hypercapnia; A09 Infectious gastroenteritis and colitis, unspecified; C34.90 Malignant neoplasm of unspecified part of unspecified bronchus or lung; N17.9 Acute kidney failure, unspecified; E87.0 Hyperosmolality and hypernatremia; I10 Essential (primary) hypertension; E86.0 Dehydration; E87.6 Hypokalemia; I48.0 Paroxysmal atrial fibrillation; D72.825 Bandemia; C61 Malignant neoplasm of prostate; E83.39 Other disorders of phosphorus metabolism; D69.6 Thrombocytopenia, unspecified; N40.0 Benign prostatic hyperplasia without lower urinary tract symptoms; K40.90 Unilateral inguinal hernia, without obstruction or gangrene, not specified as recurrent; Z66 Do not resuscitate; Z78.1 Physical restraint status; Z99.81 Dependence on supplemental oxygen; Z85.028 Personal history of other malignant neoplasm of stomach; Z87.891 Personal history of nicotine dependence
CPT/HCPCS: 36415; 36600; 71045; 71275; 74018; 74177; 80048; 80053; 80076; 81001; 82550; 82805; 82947; 83690; 83735; 84100; 84156; 84439; 84443; 84484; 84550; 85025; 85027; 87045; 87046; 87070; 87177; 87205; 87209; 87425; 89055; 93005; 93306; 94002; 94003; 94640; 94660; 94760; 96374; 96375; 99285; J0360; J0461; J0692; J0696; J0744; J1450; J1644; J1940; J2270; J2405; J2470; J2704; J2919; J3010; J3411; J3475; J3480; J7030; J7040; J7050; J7605; J7613; J7644; J7799; Q9967

== ENCOUNTER 2024-04-20 21:13 | Inpatient (IN) | payer OTHER ==
--- OUTSIDE RECORDS SUMMARY | 2024-04-20 21:16 | XMS REPORT | Clinical Summary ---
Author Name Unknown Organization [facility] Address [address] [place] [address] Care Team Providers Care Tape Cutter Name Role Phone Fortino Alvarez MD Primary Care Provider [phone] Fortino Alvarez MD Unavailable Luis Carlos POLANCO MD, William J Unavailable [phone] Efren Mueller MD Unavailable Socorro Gil Unavailable [phone] Fazal Mueller MD Unavailable [phone] Magaly Xavier NP Unavailable Yesenia Wright Unavailable [phone] Santi Lozano MD Unavailable [phone] Aime Bartlett Md, MD Unavailable [phone] Stevie Covarrubias MD Unavailable Allergies No known active allergies Medications * This document contains information received from the source organization and may not represent a complete record from that organization. MULTIVITAMIN ORAL Take 1 tablet by mouth daily. Active albuterol (PROAIR HFA) 90 mcg/puff inhalerIndicati ons:Wheezing,Ot her emphysema Inhale 2 puffs by mouth every 6 (six) hours as needed for wheezing or shortness of breath. 18 g 3 6 Active losartan (COZAAR) 50 mg tabletIndicatio ns:Other emphysema Take 1 tablet (50 mg) by mouth daily. 30 tablet 7 Active Additional Information Patient not taking.Reason: not taking, Reported on 05/17/2019 tiotropium (SPIRIVA WITH HANDIHALER) 18 mcg inhalation capsuleIndicati ons:Wheezing,Ot her emphysema Insert 1 capsule in handi-haler and inhale orally once daily. 30 each 7 Active Additional Information Patient not taking.Reason: No longer taking, Reported on 06/02/2019 umeclidinium-vi lanterol (ANORO ELLIPTA) 62.5-25 mcg/actuation dsdv Inhale 1 puff by mouth daily. Active tamsulosin (FLOMAX) 0.4 mg 24 hr capsuleIndicati ons:Personal history of malignant neoplasm of prostate TAKE ONE CAPSULE BY MOUTH DAILY 30 capsule 9 0 Active Active Problems Problem Noted Date Diagnosed [...] of prostate Blood transfusion, without reported diagnosis 2014 Psoriasis Family History Medical History Relation [...] Recorded Sex Assigned at Not on file Legal Sex Male 4:37 PM [employer] Gender Identity Not on file Sexual Orientation Not on file Occupation Industry Job Start Date Job End Date [employer] Not on file Not on file Not on file Obstetrics History Plan of Treatment Health Maintenance Due Date Last Done Comments Pneumococcal Vaccine: 65+ Years (1 of 1 - PCV) 013 COVID-19 Vaccine ( - 2023-25 season) 2023 Influenza Vaccine (#1) 2023 Insurance MEDICARE PART A AND B MEDICARE PART A AND B MEDICARE PART A AND B MEDICARE PART A AND B MEDICARE PART A AND B * Guarantor: Star Baig Account Type Relation to Patient Date of Phone Billing Address [facility] 1945 [address] MEDICARE PART A AND B MEDICARE PART A AND B Advance Directives * Full Code (Latest Code Status on File) Date Activated Date Inactivated Comments 02/29/2016 9:56 AM 02/29/2016 12:36 PM Care Teams Tape Cutter Relationship Specialty Start Date End Date Fortino Alvarez MD [address] [place] [address] [email or web address] PCP - General 06/13/15 Santi Lozano MD [address] [place] [id number] PCP - External Primary Care Provider Family Practice 05/17/19 Fortino Alvarez MD [address] [place] [id number] [email or web address] Physician 06/20/15 Bo Aldridge IV, MD [address] [place] [phone] [email or web address] Physician 06/20/15 Efren Mueller MD [address] [place] [phone] [email or web address] Physician 06/20/15 Socorro Gil PA [address] [place] [phone] [email or web address] Physician Varnisher Apprentice 06/20/15 Fazal Mueller MD [address] [place] [phone] [email or web address] Physician 06/20/15 Magaly Xavier NP [address] [place] [id number] [email or web address] Nurse Practitioner 06/20/15 Yesenia Wright PA [address] [place] [phone] [email or web address] Physician Varnisher Apprentice 06/20/15 Aime Bartlett MD, [address] [place] [address] [phone] [email or web address] Consulting Physician Internal Medicine 03/04/16 Stevie Covarrubias MD [address] [place] [phone] [email or web address] Consulting Physician Surgical Oncology 02/26/16
[2024-04-20] MEDS ORDERED: BISACODYL 10 MG RECTAL SUPP PR PRN (22:30)
[2024-04-20 22:38] VITALS: BMI 31.1
[2024-04-20] MEDS: HYDROMORPHONE HCL 1 MG/ML INJ IV SCH (23:09)
[2024-04-20 23:48] VITALS: BP 154/70; TEMP 97.8
[2024-04-21 00:02] VITALS: O2SAT 96
[2024-04-21] MEDS: LORazepam 2 MG/ML VIAL IV PRN (00:30)
--- NOTE | 2024-04-21 13:06 | P.SSS ---
Patient History Date of Service: 04/21/24 Reason for admission: HOSPICE CARE FOR RESPIRATORY FAILURE History of Present Illness: MR TABOR IS A SMOKER WITH COPD AND LUNG CANCER. HE DEVELOPED PNEUMOTHORAX AFTER BIOPSY FOR LUNG MASS. HE DECLINED RAPIDLY. LAST NIGHT HOSPITALISTS CONSULTED HOSPICE SERVICE PER FAMILY REQUEST. HE WAS ADMITTED AND KEPT ON COMFORT MEDS. I DID TELEHEALTH VISIT AT ABOUT 9 PM AND HE DURING THE NIGHT. Allergies No Known Allergies Allergy (Verified 06/12/13 23:25) Home medications list reviewed: Yes Home Medications: Amlodipine [Norvasc*] 10 mg PO DAILY 12/07/23 Atorvastatin Calcium [Lipitor] 40 mg PO DAILY 12/07/23 Budesonide/Glycopyr/Formoterol [Breztri Aerosphere Inhaler] 4 puff IH DAILY 12/07/23 Tamsulosin [Flomax*] 2 cap PO DAILY 12/07/23 Varenicline Tartrate [Chantix] 2 tab PO DAILY 12/07/23 Amlodipine [Norvasc] 10 mg PO DAILY 04/09/24 Atorvastatin Calcium [Lipitor] 40 mg PO BEDTIME 04/09/24 Budesonide/Glycopyr/Formoterol [Breztri Aerosphere Inhaler] 10.7 gm IH DAILY 04/09/24 Tamsulosin [Flomax] 0.4 mg PO BEDTIME 04/09/24 Varenicline Tartrate [Chantix] 2 mg PO DAILY 04/09/24 - Past Medical/Surgical History Diabetic: No -: COPD on O2 -: Lung cancer -: Hypertension -: BPH -: Stomach cancer-distant past -: Hernia repair Psychosocial/ Personal History: Lives at home with family - Social History Smoking Status: Unknown if ever smoked Alcohol use: Yes CD- Drugs: No Caffeine use: Yes Review of Systems 10-point ROS is otherwise unremarkable Physical Examination - Vital Signs Temperature: 97.8 F Blood Pressure: 154/70 Pulse: 97 Respirations: 18 Pulse Ox (%): 60 - Physical Exam General: Acute distress, Mild distress, Moderate distress, Comatose HEENT: Atraumatic, PERRLA, Mucous membr. moist/pink, EOMI, Sclerae nonicteric Cardiovascular: Regular rate/rhythm (ON TELEMETRY) Musculoskeletal: No tenderness Integumentary: No rashes Neurological: Other (COMATOSE.) Lymphatics: No axilla or inguinal lymphadenopathy - Diagnosis (Problem(s)) (1) Respiratory failure Status: Acute Plan: END STAGE COPD WITH PNEUMOTHORAX. LUNG CANCER IS THE DIAGNOSIS THAT IS RECENT ON THIS ADMISSION. DID NOT GET A CHANCE TO TALK TO FAMILY HE WITHIN HOURS AT NIGHT. Qualifiers: Chronicity: acute on chronic - Disposition Disposition:
[2024-04-23] MEDS ORDERED: SCOPOLAMINE HYDROBROMIDE PATCH TD SCH (09:00)
== END 2024-04-21 02:50 | disposition expired | DRG 951 ==
LOC: MERGE 21:13 → 3RD-ICU 21:13
PROVIDERS: ADMIT Internal Medicine; ATTEND Internal Medicine
DX: Z51.5 Encounter for palliative care (principal)
CPT/HCPCS: J1171